=== PATIENT | male | born 1955 | race Caucasian/White ===

== ENCOUNTER 2016-09-24 05:13 | Inpatient (IN) | payer BC, OTHER ==
[2016-09-24 05:48] VITALS: BMI 53.2
--- NOTE | 2016-09-24 06:02 | PDOC ---
[id number] [id number] CHEST DISCOMFORT Time Seen by Provider: 09/24/16 05:38 - History of Present Illness Initial Comments: 09/24/16 06:01 CHIEF COMPLAINT: chest discomfort x 3 days HISTORY OF PRESENT ILLNESS: 61 yo M with hx of HTN, IDDM, COPD, CHF, afib, obesity, s/p 4 stents, pacemaker placement presents to ED with increasing chest discomfort ("not chest pain") x 3 days. Patient states he has a productive cough and "you can hear rattling in my chest." Patient denies any fever, nausea , vomiting, diarrhea. He does report "maybe a little increased swelling to left foot" recently but reports that his left foot is "always more swollen than the right foot, and I see my practice lead all the time to check the circulation". No recent travel or sick contacts. PAST MEDICAL HISTORY: as per HPI FAMILY HISTORY: Denies SOCIAL HISTORY: Former smoker, quit 10 years ago. Denies alcohol, illicit drug use. SURGICAL HISTORY: Denies ALLERGIES: levaquin REVIEW OF SYSTEMS General/Constitutional: Denies fever or chills. Denies weakness, weight change. HEENT: Denies change in vision. Denies ear pain or discharge. Denies sore throat. Cardiovascular: Chest discomfort. Denies shortness of breath. Respiratory: Productive cough x 3 days with "rattling" today. Denies hemoptysis. Gastrointestinal: Denies nausea, vomiting, diarrhea or constipation. Denies rectal bleeding. Genitourinary: Denies dysuria, frequency, or change in urination. Musculoskeletal: Denies joint or muscle swelling or pain. Denies neck or back pain. Skin and breasts: Denies rash or easy bruising. PHYSICAL EXAM General Appearance: Well-appearing, appropriately dressed. No apparent distress. HEENT: EOMI, PERRLA, normal ENT inspection, normal voice, TMs normal, pharynx normal. No conjunctival pallor. No photophobia, scleral icterus. Neck: Supple. Trachea midline. No tenderness, rigidity, carotid bruit, stridor , lymphadenopathy, or thyromegaly. Respiratory/Chest: Crackles to lower lobes bilaterally. Minimal wheezing to R lower lobe. Cardiovascular: RRR. S1, S2. Vascular Pulses: Dorsalis-Pedis (R): 1+ , Dorsalis-Pedis (L): not palpable, not detected via bedside doppler Gastrointestinal/Abdominal: Normal bowel sounds. Abdomen soft, non-distended. No tenderness or rebound tenderness. No organomegaly, pulsatile mass, guarding , hernia, hepatomegaly, splenomegaly. Musculoskeletal/Extremities: Chronic venous stasis to lower extremities bilaterally, 3+ pitting edema to left ankle/foot. Normal inspection. FROM of all extremities, normal capillary refill. Pelvis Stable. No CVA tenderness. No tenderness to extremities, pedal edema, swelling, erythema or deformity. Integumentary: Appropriate color, dry, warm. No cyanosis, erythema, jaundice or rash Neurologic: salt grinder II-XII intact. Fully oriented, alert. Appropriate mood/affect. Motor strength 5/5. No appreciable EOM palsy, facial droop or sensory deficit. 09/24/16 06:02 09/24/16 06:47 Past History - Past Medical History Allergies/Adverse Reactions: Allergies Allergy/AdvReac Type Severity Reaction Status Date / Time levofloxacin [From Levaquin] Allergy Intermediate EYE Verified 09/24/16 05:44 IRRITATION Home Medications: Ambulatory Orders Febuxostat [Uloric -] 80 mg PO DAILY #0 tab 03/10/12 Lidocaine 5% Patch [Lidoderm -] 1 patch TP DAILY #0 patch 03/10/12 Acetaminophen [Tylenol .Extra-Strength -] 1,000 mg PO Q6H PRN 11/26/13 Ergocalciferol (Vitamin D2) [Vitamin D] 50,000 unit PO WEEKLY 11/26/13 Esomeprazole Mag Trihydrate [Nexium] 40 mg PO DAILY 11/26/13 Insulin Regular, Human [Humulin R -] 2 units SQ ASDIR PRN 11/26/13 Gabapentin 100 mg PO HS 12/30/13 Insulin (Novolog 70/30) [Novolog Mix 70/30 Flexpen -] 15 units SQ BID 02/17/14 Atorvastatin Ca [Lipitor] 20 mg PO HS 06/17/15 Torsemide [Demadex -] 100 mg PO DAILY tablet 06/23/15 Iron Dextran Complex [Infed] 100 mg IJ ASDIR 10/04/15 Dulaglutide [Trulicity] 0.75 mg SQ WEEKLY 10/05/15 Carvedilol [Coreg -] 18.75 mg PO DAILY 09/24/16 Albuterol 2.5/Ipratropium 0.5 [Duoneb -] 1 amp NEB QIDR amp 09/27/16 Amox-Tr/K Cl [Augmentin 875-125mg Tablet -] 1 tab PO BID@0800,1730 #14 tablet Prednisone 10 mg PO DAILY #40 tablet 09/27/16 Warfarin Na [Coumadin -] 2.5 mg PO DAILY@1800 #30 tablet 09/27/16 Anemia: Yes Asthma: No Cancer: No Cardiac Disorders: Yes (Afib/stents, PPM; STENT 02/21/2014) CVA: No COPD: Yes (sleep apnea) CHF: Yes Dementia: No Diabetes: Yes GI Disorders: No Disorders: No HTN: Yes Hypercholesterolemia: Yes Liver Disease: No Seizures: No Thyroid Disease: No - Surgical History Abdominal Surgery: No Appendectomy: No Cardiac Surgery: Yes (STENT INSERTION, pace maker) Cholecystectomy: No Lung Surgery: No Neurologic Surgery: No Orthopedic Surgery: No - Immunization History Td Vaccination: Yes TDAP Vaccination: Yes Immunization Up to Date: Yes - Psycho/Social/Smoking Cessation Hx Anxiety: No Suicidal Ideation: No Smoking Status: No Smoking History: Unknown if ever smoked Have you smoked in the past 12 months: No Number of Cigarettes Smoked Daily: 0 If you are a former smoker, when did you quit?: 2005 Information on smoking cessation initiated: No 'Breaking Loose' booklet given: 03/09/12 Hx Alcohol Use: No Drug/Substance Use Hx: No Substance Use Type: None Hx Substance Use Treatment: No Cardiac Specific PMH - Complaint Specific PMHX Pacemaker: Yes *Physical Exam - Vital Signs Last Vital Signs Temp Pulse Resp BP Pulse Ox 98.0 F 70 20 138/80 97 09/27/16 17:00 09/27/16 17:00 09/27/16 09:00 09/27/16 17:00 09/27/16 11:34 ED Treatment Course - LABORATORY CBC & Chemistry Diagram: 09/27/16 06:50 09/27/16 06:50 - ADDITIONAL ORDERS Additional order review: 09/24/16 18:58 Respiratory Virus Panel - Final Nasopharyngeal Swab 09/24/16 17:26 Blood Culture - Final Blood - Peripheral Venous NO GROWTH AFTER 5 DAYS INCUBATION 09/24/16 17:26 Blood Culture - Final Blood - Peripheral Venous NO GROWTH AFTER 5 DAYS INCUBATION 09/24/16 18:58 Influenza Types A,B Antigen (KIRTI) - Final Nasopharyngeal Swab - Final 09/25/16 09/24/16 09/24/16 06:07 21:49 15:56 RBC MCV MCHC RDW MPV Neutrophils % Lymphocytes % Monocytes % Eosinophils % Basophils % POC Glucometer 271 244 195 09/24/16 06:00 RBC 3.32 L MCV 87.0 MCHC 33.0 RDW 14.9 MPV 8.8 Neutrophils % 62.0 Lymphocytes % 17.2 D Monocytes % 14.7 H Eosinophils % 5.5 H Basophils % 0.6 POC Glucometer - RADIOLOGY Radiology Studies Ordered: Category Date Time Status CHEST PA & LAT [RAD] Stat Radiology 09/24/16 05:59 Completed - Medications Given in the ED: ED Medications Discontinued Medications Generic Name Dose Route Start Last Admin Trade Name Freq PRN Reason Stop Dose Admin Acetaminophen 650 mg 09/24/16 15:34 09/24/16 16:42 Tylenol - PO 650 mg Q6H PRN Administration FEVER OR PAIN Albuterol Sulfate 1 amp 09/24/16 11:08 09/24/16 11:10 Ventolin 0.083% Nebulizer Soln - NEB 09/24/16 11:09 1 amp ONCE ONE Administration Albuterol/Ipratropium 1 amp 09/24/16 18:00 09/27/16 16:45 Duoneb - NEB 1 amp QIDR MELISSA Administration Amoxicillin/Clavulanate Potassium 1 tab 09/26/16 17:30 09/27/16 17:33 Augmentin - 875mg Tablet PO 1 tab BID@0800,1730 MELISSA Administration Aspirin 324 mg 09/24/16 11:01 09/24/16 11:55 Asa - PO 09/24/16 11:02 Not Given ONCE ONE Atorvastatin Calcium 20 mg 09/24/16 22:00 09/26/16 21:44 Lipitor - PO 20 mg HS MELISSA Administration Carvedilol 12.5 mg/ Carvedilol 18.75 mg 09/24/16 22:00 09/27/16 10:04 6.25 mg PO 18.75 mg BID MELISSA Administration Dronedarone 400 mg 09/24/16 22:00 09/25/16 10:26 Multaq - PO Not Given BID MELISSA Febuxostat 80 mg 09/25/16 10:00 09/27/16 10:05 Uloric - PO 80 mg DAILY MELISSA Administration Furosemide 80 mg 09/24/16 07:58 09/24/16 09:20 Lasix Injection - IVPUSH 09/24/16 07:59 80 mg ONCE ONE Administration Gabapentin 100 mg 09/24/16 22:00 09/27/16 13:30 Neurontin - PO 100 mg TID MELISSA Administration Guaifenesin 10 ml 09/24/16 07:59 09/24/16 09:20 Robitussin - PO 09/24/16 08:00 10 ml ONCE ONE Administration Guaifenesin 10 ml 09/24/16 13:56 09/27/16 10:15 Diabetic Tussin Dm - PO 10 ml Q4H PRN Administration COUGH Insulin Aspart 1 vial 09/24/16 16:30 09/26/16 12:15 Novolog Vial Sliding Scale - SQ 4 units ACHS MELISSA Administration Protocol Insulin Aspart 20 units 09/24/16 16:30 09/26/16 06:43 Novolog Mix 70/30 Vial SQ 20 units BIDAC MELISSA Administration Insulin Aspart 35 units 09/26/16 14:11 09/27/16 17:35 Novolog Mix 70/30 Vial SQ 35 units BIDAC MELISSA Administration Insulin Aspart 1 vial 09/26/16 14:12 09/27/16 17:33 Novolog Vial Sliding Scale - SQ 6 units ACHS MELISSA Administration Protocol Lidocaine 1 patch 09/24/16 15:45 09/27/16 10:04 Lidoderm Patch - TP Not Given DAILY MELISSA Methylprednisolone Sodium Succinate 40 mg 09/24/16 15:00 09/25/16 14:19 Solu-Medrol - IVPB Not Given Q6H-IV MELISSA Methylprednisolone Sodium Succinate 40 mg 09/25/16 10:00 09/26/16 21:45 Solu-Medrol - IVPB 09/26/16 22:00 40 mg BID MELISSA Administration Methylprednisolone Sodium Succinate 40 mg 09/27/16 10:00 09/27/16 10:03 Solu-Medrol - IVPB 40 mg DAILY MELISSA Administration Pantoprazole Sodium 40 mg 09/24/16 15:45 09/27/16 10:04 Protonix - PO 40 mg DAILY MELISSA Administration Torsemide 100 mg 09/25/16 10:00 09/27/16 10:05 Demadex - PO 100 mg DAILY MELISSA Administration Warfarin Sodium 3 mg 09/24/16 18:00 09/25/16 17:18 Coumadin - PO Not Given DAILY@1800 [facility] Warfarin Sodium 3 mg 09/27/16 18:00 09/27/16 17:33 Coumadin - PO 3 mg DAILY@1800 [facility] Administration Medical Decision Making - Medical Decision Making 09/24/16 06:48 61 yo M with hx of HTN, IDDM, COPD, CHF, afib, obesity, s/p 4 stents, pacemaker placement presents to ED with increasing chest discomfort ("not chest pain") x 3 days. -CBC, CMP, Mg, PT/INR, cardiac profile -EKG, CXR Case discussed in detail with oncoming emergency provider including history, physical exam and ancillary studies. In brief, this patient is being seen in the ED for a chief complaint of: chest discomfort, cough I have completed the initial assessment interview note and have ordered the following labs: CBC, CMP, Mg, PT/INR, cardiac profile I have reviewed the following results: CBC Pending results: CMP, Mg, PT/INR, cardiac profile Please call the PCP: Lexus Plan for disposition as follows: pending Oncoming NPA Katelin has assumed care for the patient and will complete the evaluation and treatment. *DC/Admit/Observation/Transfer Diagnosis at time of Disposition: Cough, Systolic CHF, acute on chronic Chest pain Qualifiers: Chest pain type: other chest pain Qualified Code(s): R07.89 - Other chest pain - Discharge Dispostion Disposition: HOME Condition at time of disposition: Improved - Prescriptions
[2016-09-24 06:20] LABS: BASOPHIL 0.6 % (0-2.0); EOSINOPHIL 5.5 % (0-4.5); MCH 28.7 pg (25.7-33.7); MEAN PLT VOLUME 8.8 fl (7.5-11.1); PLATELET COUNT 131 K/MM3 (134-434); RDW 14.9 % (11.9-15.9); WHITE BLOOD COUNT 5.9 K/mm3 (4.0-10.0)
[2016-09-24 06:47] LABS: ALBUMIN 3.1 g/dl (3.4-5.0); BILIRUBIN,TOTAL 0.4 mg/dL (0.2-1.0); COCKROFT - GAULT 49.76; CREATININE 3.4 mg/dL (0.7-1.3); MAGNESIUM 2.1 mg/dL (1.8-2.4); TOT PROT 7.1 g/dl (6.4-8.2)
[2016-09-24 06:50] LABS: TROPONIN I 0.02 ng/ml (0.00-0.05)
--- NOTE | 2016-09-24 07:32 | PDOC ---
*Physical Exam - Vital Signs Last Vital Signs Temp Pulse Resp BP Pulse Ox 98.7 F 70 20 129/62 100 09/24/16 05:44 09/24/16 05:44 09/24/16 05:44 09/24/16 05:44 09/24/16 05:44 ED Treatment Course - LABORATORY CBC & Chemistry Diagram: 09/24/16 06:00 09/24/16 06:00 - ADDITIONAL ORDERS Additional order review: Laboratory Results 09/24/16 06:00 Sodium 139 Potassium 4.1 Chloride 103 Carbon Dioxide 26 Anion Gap 10 BUN 76 H D Creatinine 3.4 H D Creat Clearance w eGFR 18.51 Random Glucose 149 H Calcium 8.0 L Magnesium 2.1 Total Bilirubin 0.4 AST 24 D ALT 25 D Alkaline Phosphatase 92 Creatine Kinase 425 H D Creatine Kinase Index 0.6 CK-MB (CK-2) 2.586 Troponin I 0.02 Total Protein 7.1 Albumin 3.1 L 09/24/16 06:00 RBC 3.32 L MCV 87.0 MCHC 33.0 RDW 14.9 MPV 8.8 Neutrophils % 62.0 Lymphocytes % 17.2 D Monocytes % 14.7 H Eosinophils % 5.5 H Basophils % 0.6 Medical Decision Making - Medical Decision Making 09/24/16 07:31 Signout received from RHODA Veloz. Briefly, this is a 61 year old male with a history of CAD s/p stents x 4, Afib s/p PPM on Coumadin, COPD, CHF, IDDM, and obesity who presents with 3 days of productive cough, chest "discomfort", and asymmetric LE edema which he states is chronic. Workup so far is notable for: EKG: Paced rhythm, (-) Sgarbossa criteria CXR: Pulmonary vascular congestion, increased central markings Cr 3.4 (2.6 on prior visit 08/2016) Troponin 0.02 INR therapeutic at 2.87 Patient has asymmetric LE edema, but states this has been chronic for many years Plan: -Lasix 80mg IVP -Place in observation for diuresis and MARY -Dr. Tyler consulted- discusse chapincito Cespedes -Accepted for observation by Dr. Boudreaux 09/24/16 11:09 Patient again complaining of chest pain and persistent cough. Will give trial of albuterol neb x 1. Will repeat EKG and cardiac enzymes. Patient was told never to take ASA because of ?GIB. *DC/Admit/Observation/Transfer Diagnosis at time of Disposition: Cough, Systolic CHF, acute on chronic Chest pain Qualifiers: Chest pain type: other chest pain Qualified Code(s): R07.89 - Other chest pain - Discharge Dispostion Admit: Yes - Referrals
[2016-09-24] MEDS ORDERED: FUROSEMIDE 40 MG/4 ML INJECTABLE VIAL IVPUSH ONE (07:58)
[2016-09-24] MEDS ORDERED: guaiFENesin 200 MG/10 ML 10 ML UNIT-DOSE CUPS PO ONE (07:59)
[2016-09-24 08:18] LABS: INR 2.87 (0.82-1.09); PROTHROMBIN TIME (PATIENT) 32.3 SEC (9.98-11.88)
[2016-09-24] MEDS ORDERED: FUROSEMIDE 40 MG/4 ML INJECTABLE VIAL ONE (09:09)
[2016-09-24] MEDS ORDERED: guaiFENesin/D-METHORPHAN HB 10 ML UNIT-DOSE CUPS ONE (09:09)
--- NOTE | 2016-09-24 09:54 | EKG ---
Test Reason : Blood Pressure : / mmHG Vent. Rate : 078 BPM Atrial Rate : 105 BPM P-R Int : 146 ms QRS Dur : 186 ms QT Int : 496 ms P-R-T Axes : 128 -69 092 degrees QTc Int : 565 ms POOR DATA QUALITY, INTERPRETATION MAY BE ADVERSELY AFFECTED AV dual-paced rhythm ABNORMAL ECG Confirmed by ALFRED CHAVARRIA MD ([id number]) on 09/24/2016 9:53:35 AM Referred By: Confirmed By:ALFRED CHAVARRIA MD
[2016-09-24] MEDS ORDERED: ASPIRIN 81 MG CHEWABLE TABLETS PO ONE (11:01)
[2016-09-24] MEDS ORDERED: ALBUTEROL SO4 0.083% IH SOL 2.5 MG/3 ML VIAL.NEB. NEB ONE (11:08)
[2016-09-24 12:54] LABS: TROPONIN I 0.02 ng/ml (0.00-0.05)
--- NOTE | 2016-09-24 13:51 | PN ---
Progress Note (short form) - Note Progress Note: PULMONARY CONSULTATION DICTATED 09/24/16 IMP CHEST CONGESTION,DYSPNEA COPD EXACERBATION CHF ACUTE ON CHRONIC RENAL FAILURE AFIB S/P PPM ASHD S/P STENTS HTN OSAS ON CPAP 14cm H2O MORBID OBESITY IDDM PLAN INHALED BRONCHODLATORS DIURETICS PER CARDIOLOGY NASAL O2 STEROIDS X 24 HR GLYCEMIC CONTROL ANTITUSSIVES STRICT I+OS DAILY WTS MONITOR LYTES,RENAL FUNCTION DR MCKEON Problem List - Problems (1) Cough Code(s): R05 - COUGH (2) Acute on chronic renal failure Code(s): N17.9 - ACUTE KIDNEY FAILURE, UNSPECIFIED N18.9 - CHRONIC KIDNEY DISEASE, UNSPECIFIED (3) Atrial fibrillation Code(s): I48.91 - UNSPECIFIED ATRIAL FIBRILLATION (4) CHF exacerbation Code(s): I50.9 - HEART FAILURE, UNSPECIFIED (5) Elevated brain natriuretic peptide (BNP) level Code(s): R79.89 - OTHER SPECIFIED ABNORMAL FINDINGS OF BLOOD CHEMISTRY (6) Insulin dependent diabetes mellitus Code(s): E11.9 - TYPE 2 DIABETES MELLITUS WITHOUT COMPLICATIONS Z79.4 - DETENTION (CURRENT) USE OF INSULIN (7) Lower extremity edema Code(s): R60.0 - LOCALIZED EDEMA (8) Obstructive lung disease Code(s): J44.9 - CHRONIC OBSTRUCTIVE PULMONARY DISEASE, UNSPECIFIED (9) S/P coronary artery stent placement Code(s): Z95.5 - PRESENCE OF CORONARY ANGIOPLASTY IMPLANT AND GRAFT (10) Sleep apnea Code(s): G47.30 - SLEEP APNEA, UNSPECIFIED
--- NOTE | 2016-09-24 15:04 | CON.CARD ---
Cardiology Consult (text) - Consultation Consultation Note: CC: CP 61 year old with h/o ischemic cardiomyopathy, CAD s/p multiple PCI's, most recent 02/2014, afib, SSS s/p pacemaker, diabetes, chronic kidney disease, asthma , osmar on nivppv at home, morbid obesity who p/w cough. States that he recently had a cold and over the past couple of days developed a productive cough. He was coughing so much he was having trouble breathing. Otherwise no sob, cp dizziness, palps, progression of stable LE edema. No orthopnea, abdominal distension. No change in recent weights. + congestion. adherent to torsemide denies fever, diaphoresis, chills, nausea, vomiting, diarrhea, urinary symptoms , rashes, headache claudication, bleeding or transient neurologic symptoms. cough better since receiving medications. PMhx: Per hpi Family hx: multiple family members with CAD, cardiomyopathy and arrhythmia Social hx: former smoker, rare alcohol, no illicits ROS: per hpi. Ambulatory Orders Dronedarone HCl [Multaq -] 400 mg PO BID #0 tab 03/10/12 Febuxostat [Uloric -] 80 mg PO DAILY #0 tab 03/10/12 Lidocaine 5% Patch [Lidoderm -] 1 patch TP DAILY #0 patch 03/10/12 Acetaminophen [Tylenol .Extra-Strength -] 1,000 mg PO Q6H PRN 11/26/13 Ergocalciferol (Vitamin D2) [Vitamin D] 50,000 unit PO WEEKLY 11/26/13 Esomeprazole Mag Trihydrate [Nexium] 40 mg PO DAILY 11/26/13 Insulin Regular, Human [Humulin R -] 2 units SQ ASDIR PRN 11/26/13 Gabapentin 100 mg PO HS 12/30/13 Warfarin Sodium [Coumadin] 3 mg PO ASDIR 12/30/13 Insulin (Novolog 70/30) [Novolog Mix 70/30 Flexpen -] 15 units SQ BID 02/17/14 Atorvastatin Ca [Lipitor] 20 mg PO HS 06/17/15 Torsemide [Demadex -] 100 mg PO DAILY tablet 06/23/15 Iron Dextran Complex [Infed] 100 mg IJ ASDIR 10/04/15 Dulaglutide [Trulicity] 0.75 mg SQ WEEKLY 10/05/15 Carvedilol [Coreg -] 18.75 mg PO DAILY 09/24/16 Current Medications Albuterol/Ipratropium (Duoneb -) 1 amp NEB QIDR MELISSA Guaifenesin (Diabetic Tussin Dm -) 10 ml PO Q4H PRN PRN Reason: COUGH Methylprednisolone Sodium Succinate (Solu-Medrol -) 40 mg IVPB Q6H-IV [facility] Vital Signs - 24 hr 09/24/16 09/24/16 09/24/16 05:44 07:18 09:20 Temperature 98.7 F Pulse Rate 70 Pulse Rate [ 77 80 Right Radial] Respiratory 20 18 18 Rate Blood Pressure 129/62 Blood Pressure 132/48 132/73 [Left Arm] O2 Sat by Pulse 100 97 98 Oximetry (%) 09/24/16 09/24/16 11:22 11:40 Temperature 98.0 F 97.9 F Pulse Rate 70 Pulse Rate [ 71 Right Radial] Respiratory 18 18 Rate Blood Pressure 129/71 Blood Pressure 119/65 [Left Arm] O2 Sat by Pulse 98 98 Oximetry (%) Intake & Output 09/22/16 09/23/16 09/24/16 09/25/16 07:59 07:59 07:59 07:59 Weight 340 lb 339 lb 15.985 oz NAD, calm JVD flat, neck supple diminished air movement, nl effort RRR nl S1, s2 no m/r/g + bs soft obese nt nd ext without cyanosis, clubbing trace edema with venous stasis changes + dp/pt aaox3 CBC, BMP 09/24/16 06:00 09/24/16 06:00 Laboratory Tests 12/01/15 08/21/16 08/21/16 09:03 09:25 09:25 Plt Count 155 Monocytes % Eosinophils % INR Creatinine 2.6 H D Magnesium Total Bilirubin AST ALT Creatine Kinase Creatine Kinase Index CK-MB (CK-2) Troponin I Free Tunica/Lambda Ratio 2.12 H 09/24/16 09/24/16 09/24/16 06:00 06:00 06:00 Plt Count 131 L Monocytes % 14.7 H Eosinophils % 5.5 H INR 2.87 H Creatinine 3.4 H D Magnesium 2.1 Total Bilirubin 0.4 AST 24 D ALT 25 D Creatine Kinase 425 H D Creatine Kinase Index 0.6 CK-MB (CK-2) 2.586 Troponin I 0.02 Free Tunica/Lambda Ratio 09/24/16 11:52 Plt Count Monocytes % Eosinophils % INR Creatinine Magnesium Total Bilirubin AST ALT Creatine Kinase 552 H D Creatine Kinase Index 0.7 CK-MB (CK-2) 3.7 H Troponin I 0.02 EKG: a-v paced tele: av paced CXR: no infiltrate or evidence of failure Echo 10/19 ([place]): nl LV size with mild-mod global HK (EF 45%); mild MR RHC 10/19: wedge 25, PA 50/20; CI 2.7-->nitroprusside: wedge 10, PA 25/15; CI 2.4 cath 02/2014: mLAD ESTER for ISR, patent stents in mRCA, pLAD, PLCx, OM1, residual ISR 50-60% OM2 stent cough - appears euvolemic, cxr clear. likely 2/2 cold. mgm't per pmd/pulm Ischemic cardiomyopathy - euvolemic. would resume home 100 mg of torsemide daily. - con't coreg, no NAKUL due to fluctuating creatinine - standing weights, i/o, daily bmp Afib, - previously sx triggering HF exacerbation - On AC with coumain. inr dosing per pmd - on multaq for rhythm control SSS s/p biotronik PPM - routine office checks CAD - s/p multiple PCI's, most recent 02/2014 --mLAD ESTER PCI for ISR--stable, minimal residual, - not on anti-platelet due to h/o gib - no anginal sx's, trop negative x 2, EKG v-pacing - not on NAKUL due to fluctuating creatinine. HTN - well controlled on current regimen HL - on atorvastatin CKD (baseline Cr ~ 3's) - Monitor closely with diuresis. anemia - will monitor hgb on AC OSMAR, DM, per PMD
--- NOTE | 2016-09-24 15:30 | CONS ---
DATE OF CONSULTATION: 09/24/2016 PULMONARY CONSULTATION REFERRING PHYSICIAN: HISTORY OF PRESENT ILLNESS: The patient is a 61-year-old white male known to me from previous hospitalization, lost to followup. Past history of hypertension, morbid obesity, COPD, CHF, atrial fibrillation status post stents, ASHD status post 4 stents. The patient is status post permanent pacemaker. Hypertension, insulin dependent, diabetes. Admitted to [facility] with complaints of increasing chest congestion and cough of 3 days' duration. The patient states the cough is productive of clear sputum. He also complains of chest congestion and wheezing. Denies any chest pain, nausea, vomiting, diaphoresis. Denies any hemoptysis. Denied any recent travel. There were complaints of chills. Patient presented to the emergency room above. In the ER, he was started on Lasix, inhaled bronchodilators, and transferred to floor for further management. Patient has a history of smoking approximately 10 to 12 years ago. There is no history of occupational exposure to chemicals or fumes. There is no history of recent travel. PAST MEDICAL HISTORY: Again includes CHF, COPD, insulin dependent diabetes mellitus, hypertension, morbid obesity, ASHD status post stents, atrial fibrillation status post pacemaker, obstructive sleep apnea. REVIEW OF SYSTEMS: Positive for shortness of breath. Positive for cough. Positive for chest congestion. No fever. Positive chills. No chest pain. No palpitations. No abdominal pain. Positive for lower extremity edema. CURRENT MEDICATIONS: Include nothing ordered. They received in the emergency room: Lasix 80 mg IV once, guaifenesin, albuterol. PHYSICAL EXAMINATION: General: The patient is an obese male, awake, alert, congested. Vital signs: He is currently afebrile. Blood pressure is 119/55, respiratory rate is 18, and O2 saturation is 98% on 2 L. HEENT: Head is normocephalic, atraumatic. Neck: Supple. Heart: Irregularly irregular. Normal S1, S2. Chest: Diffuse rales and rhonchi, bibasilar crackles. Abdomen: Soft. Bowel sounds positive. Extremities: Bilateral extremity edema, left greater than right. LABORATORY: BUN 76, creatinine 3.4, BNP is 3498, CK is 425, INR is 2.87. WBC is 5.9, hemoglobin 9.5, hematocrit 29.5, platelet count 131,000. Chest x-ray reveals prominent central markings but no acute infiltrates and/or effusions. Previous congestion infiltrate changes have resolved since October of 2015. IMPRESSION: 1. Dyspnea, chest congestion chronic obstructive pulmonary disease exacerbation. 2. Acute bronchitis. 3. Mild congestive heart failure. 4. Morbid obesity. 5. [id number]-[id number] renal failure. 6. Insulin dependent diabetes mellitus. 7. Hypertension. 8. Obstructive sleep apnea. PLAN: Inhaled bronchodilators. Supplemental O2. Short course of IV steroids, Lasix. Cardiology evaluation. Monitor electrolytes. Obtain followup chest x- ray. BiPAP at night if patient complies. Supplemental O2. Antitussives. ALEC MCKEON M.D. [id number] MTDD
[2016-09-24] MEDS ORDERED: ACETAMINOPHEN 325 MG TABLET (FP) PO PRN (15:34)
[2016-09-24] MEDS: methylPREDNISolone NA SUCC 40 MG/1 ML VIAL IVPB SCH ×2 (15:57→21:38)
[2016-09-24] MEDS: guaiFENesin/D-M SUGAR-FREE/ACLHOL-FREE 118 ML BOTTLE PO PRN (15:59)
[2016-09-24] MEDS: INSULIN SLIDING SCALE (NOVOLOG) 1 VIAL SQ SCH ×2 (16:00→22:00)
[2016-09-24] MEDS: PANTOPRAZOLE 40 MG TABLET (FP) PO SCH (17:38)
[2016-09-24] MEDS: WARFARIN NA 3 MG TABLET PO SCH (17:38)
[2016-09-24] MEDS: INSULIN (NOVOLOG MIX 70/30) 100 UNITS/ML MDV SQ SCH (17:38)
[2016-09-24] MEDS: LIDOCAINE 5% TOPICAL PATCH TP SCH (17:38)
[2016-09-24] MEDS: ALBUTEROL SO4 2.5/IPRATROPIUM 0.5 INH SOL 3 ML VIAL.NEB. NEB SCH (18:15)
[2016-09-24] MEDS: GABAPENTIN 100 MG CAPSULE (FP) PO SCH (21:38)
[2016-09-24] MEDS: ATORVASTATIN CA 20 MG TABLET (FP) PO SCH (21:38)
[2016-09-24] MEDS ORDERED: CARVEDILOL 6.25 MG TABLET (FP) ONE (21:56)
[2016-09-24] MEDS ORDERED: CARVEDILOL 12.5 MG TABLET (FP) ONE (21:56)
[2016-09-24] MEDS: CARVEDILOL 12.5 MG, CARVEDILOL 6.25 MG PO SCH (22:00)
[2016-09-24] MEDS ORDERED: CARVEDILOL 12.5 MG TABLET (FP) PO SCH (22:00)
[2016-09-25] MEDS: ALBUTEROL SO4 2.5/IPRATROPIUM 0.5 INH SOL 3 ML VIAL.NEB. NEB SCH ×6 (00:16→23:01)
[2016-09-25] MEDS: DRONEDARONE HCL 400 MG TAB (FP) PO SCH ×2 (02:56→10:26)
[2016-09-25] MEDS: methylPREDNISolone NA SUCC 40 MG/1 ML VIAL IVPB SCH ×4 (02:57→21:33)
[2016-09-25] MEDS: GABAPENTIN 100 MG CAPSULE (FP) PO SCH ×3 (06:14→21:32)
[2016-09-25] MEDS: INSULIN SLIDING SCALE (NOVOLOG) 1 VIAL SQ SCH ×4 (06:15→21:32)
[2016-09-25] MEDS: INSULIN (NOVOLOG MIX 70/30) 100 UNITS/ML MDV SQ SCH ×2 (06:15→17:25)
--- NOTE | 2016-09-25 08:33 | PN ---
Progress Note, Physician Chief Complaint: sob/wheezing History of Present Illness: no more sob no wheezing no cp no palpit no leg swelling (incl at home) remote ex-cigs and signif 2nd hand exposures - Current Medication List Current Medications: Active Medications Acetaminophen (Tylenol -) 650 mg PO Q6H PRN PRN Reason: FEVER OR PAIN Last Admin: 09/24/16 16:42 Dose: 650 mg Albuterol/Ipratropium (Duoneb -) 1 amp NEB QIDR [facility] Last Admin: 09/25/16 07:30 Dose: 1 amp Atorvastatin Calcium (Lipitor -) 20 mg PO HS [facility] Last Admin: 09/24/16 21:38 Dose: 20 mg Carvedilol 12.5 mg/ Carvedilol (6.25 mg) 18.75 mg PO BID [facility] Last Admin: 09/24/16 22:00 Dose: 18.75 mg Dronedarone (Multaq -) 400 mg PO BID [facility] Last Admin: 09/25/16 02:56 Dose: Not Given Febuxostat (Uloric -) 80 mg PO DAILY [facility] Gabapentin (Neurontin -) 100 mg PO TID [facility] Last Admin: 09/25/16 06:14 Dose: 100 mg Guaifenesin (Diabetic Tussin Dm -) 10 ml PO Q4H PRN PRN Reason: COUGH Last Admin: 09/24/16 15:59 Dose: 10 ml Insulin Aspart (Novolog Vial Sliding Scale -) 1 vial SQ ACHS [facility] PRN Reason: Protocol Last Admin: 09/25/16 06:15 Dose: 4 units Insulin Aspart (Novolog Mix 70/30 Vial) 20 units SQ BIDAC [facility] Last Admin: 09/25/16 06:15 Dose: 20 units Lidocaine (Lidoderm Patch -) 1 patch TP DAILY [facility] Last Admin: 09/24/16 17:38 Dose: Not Given Methylprednisolone Sodium Succinate (Solu-Medrol -) 40 mg IVPB Q6H-IV [facility] Last Admin: 09/25/16 02:57 Dose: 40 mg Pantoprazole Sodium (Protonix -) 40 mg PO DAILY [facility] Last Admin: 09/24/16 17:38 Dose: 40 mg Torsemide (Demadex -) 100 mg PO DAILY [facility] Warfarin Sodium (Coumadin -) 3 mg PO DAILY@1800 [facility] Last Admin: 09/24/16 17:38 Dose: 3 mg - Objective Vital Signs: Vital Signs Temperature 98.3 F 09/25/16 02:00 Pulse Rate 76 09/25/16 02:00 Respiratory Rate 20 09/25/16 02:00 Blood Pressure 136/69 09/25/16 02:00 O2 Sat by Pulse Oximetry (%) 98 09/25/16 07:14 Constitutional: Yes: No Distress, Calm Eyes: No: Sclera Icterus HENT: No: Nasal Congestion Cardiovascular: Yes: Regular Rate and Rhythm, S1, S2, Other (PMI non diplaced). No: Gallop, Murmur Respiratory: Yes: CTA Bilaterally. No: Accessory Muscle Use, Rales, Wheezes Gastrointestinal: Yes: Normal Bowel Sounds, Soft. No: Tenderness Musculoskeletal: Yes: Other (No kyphosis) Extremities: No: Cold, Cyanosis Edema: No Integumentary: No: Jaundice Neurological: Yes: Alert, Oriented (x3) Psychiatric: No: Agitated Labs: INR, PTT INR 2.87 (0.82-1.09) H 09/24/16 06:00 - ....Imaging EKG: Other (tele: A-s/V-P, alt A/V-p) Assessment/Plan EKG: a-v paced tele: av paced CXR: no infiltrate or evidence of failure Echo 10/19 ([facility]): nl LV size with mild-mod global HK (EF 45%); mild MR RHC 10/19: wedge 25, PA 50/20; CI 2.7-->nitroprusside: wedge 10, PA 25/15; CI 2.4 cath 02/2014: mLAD ESTER for ISR, patent stents in mRCA, pLAD, PLCx, OM1, residual ISR 50-60% OM2 stent acute sob, cough, acute bronchospasm - sudden onset wheezing at home and feeling of constricted air flow in chest, in setting of viral URI - signif prior tobacco exposures, no prior h/o athma/copd to his knowledge - appears euvolemic, cxr clear and no venous redistribution/congestion noted - reliably with wt trend up and LE swelling with chf in past--none at present - pt has history of known asthma/copd per my d/w dr day - plan for short course steroids trial (ongoing) - pulm following--? maintenance BDs per their recs Ischemic cardiomyopathy, chronic syst chf - clinically euvolemic (as above) - dry wt runs 332-338, wt 335 here - BNP 3K (range 1K-5K) - s/p one dose lasix 80 ivp in ER - continuing home torsemide 100 mg qd - con't coreg 18.75 bid (home dose) - no NAKUL due to fluctuating creatinine history - observe wt trend and periph edema closely on steroids (wt and LE swelling are his usual chf signs) parox Afib: - previous DCCV yrs ago, maintained on multaq for rhythm control - multaq stopped 2015 by EP at [facility] due to worsening creatinine (improved to 2.5 range from 3 at that time) - no AF noted since - cont BB as doing - On AC with coumadin. inr dosing per pmd--H/H has been stable, with no signs recurrent occult GIB (has hx of this 2016) SSS s/p biotronik PPM - routine office checks CAD - s/p multiple PCI's, most recent 02/2014 --mLAD ESTER PCI for ISR--stable, minimal residual, - not on anti-platelet due to h/o gib and pt on coumadin - no anginal sx's, trop negative x 2, EKG v-pacing - not on NAKUL due to fluctuating creatinines HTN - well controlled on current regimen HL - on atorvastatin, cont same CKD (baseline Cr ~ 3's) - routine lab trend anemia - baseling hgb 9s-10s - counts stable here OSMAR - compliant with cpap DM - per pmd NO INDICATION FOR TELEMETRY--D/C'D
--- NOTE | 2016-09-25 09:16 | PN ---
Progress Note, Physician History of Present Illness: PULMONARY ALERT,FEELING BETTER,LESS CONGESTED,LESS COUGH - Current Medication List Current Medications: Active Medications Acetaminophen (Tylenol -) 650 mg PO Q6H PRN PRN Reason: FEVER OR PAIN Last Admin: 09/24/16 16:42 Dose: 650 mg Albuterol/Ipratropium (Duoneb -) 1 amp NEB QIDR [facility] Last Admin: 09/25/16 07:30 Dose: 1 amp Atorvastatin Calcium (Lipitor -) 20 mg PO HS [facility] Last Admin: 09/24/16 21:38 Dose: 20 mg Carvedilol 12.5 mg/ Carvedilol (6.25 mg) 18.75 mg PO BID [facility] Last Admin: 09/24/16 22:00 Dose: 18.75 mg Dronedarone (Multaq -) 400 mg PO BID [facility] Last Admin: 09/25/16 02:56 Dose: Not Given Febuxostat (Uloric -) 80 mg PO DAILY [facility] Gabapentin (Neurontin -) 100 mg PO TID [facility] Last Admin: 09/25/16 06:14 Dose: 100 mg Guaifenesin (Diabetic Tussin Dm -) 10 ml PO Q4H PRN PRN Reason: COUGH Last Admin: 09/24/16 15:59 Dose: 10 ml Insulin Aspart (Novolog Vial Sliding Scale -) 1 vial SQ ACHS [facility] PRN Reason: Protocol Last Admin: 09/25/16 06:15 Dose: 4 units Insulin Aspart (Novolog Mix 70/30 Vial) 20 units SQ BIDAC [facility] Last Admin: 09/25/16 06:15 Dose: 20 units Lidocaine (Lidoderm Patch -) 1 patch TP DAILY [facility] Last Admin: 09/24/16 17:38 Dose: Not Given Methylprednisolone Sodium Succinate (Solu-Medrol -) 40 mg IVPB Q6H-IV [facility] Last Admin: 09/25/16 02:57 Dose: 40 mg Pantoprazole Sodium (Protonix -) 40 mg PO DAILY [facility] Last Admin: 09/24/16 17:38 Dose: 40 mg Torsemide (Demadex -) 100 mg PO DAILY [facility] Warfarin Sodium (Coumadin -) 3 mg PO DAILY@1800 [facility] Last Admin: 09/24/16 17:38 Dose: 3 mg - Objective Vital Signs: Vital Signs Temperature 98.3 F 09/25/16 02:00 Pulse Rate 76 09/25/16 02:00 Respiratory Rate 20 09/25/16 02:00 Blood Pressure 136/69 09/25/16 02:00 O2 Sat by Pulse Oximetry (%) 98 09/25/16 07:14 Constitutional: Yes: Calm, Obese Eyes: Yes: WNL HENT: Yes: WNL Neck: Yes: Supple Cardiovascular: Yes: Pulse Irregular, S1, S2 Respiratory: Yes: Rales (FEW SCATTERED WHEEZES,FEW BIBASILAR CRACKLES) Gastrointestinal: Yes: Normal Bowel Sounds, Soft Extremities: Yes: WNL Edema: Yes Labs: INR, PTT INR 2.87 (0.82-1.09) H 09/24/16 06:00 Problem List - Problems (1) Cough Code(s): R05 - COUGH (2) Acute on chronic renal failure Code(s): N17.9 - ACUTE KIDNEY FAILURE, UNSPECIFIED N18.9 - CHRONIC KIDNEY DISEASE, UNSPECIFIED (3) Atrial fibrillation Code(s): I48.91 - UNSPECIFIED ATRIAL FIBRILLATION (4) CHF exacerbation Code(s): I50.9 - HEART FAILURE, UNSPECIFIED (5) Elevated brain natriuretic peptide (BNP) level Code(s): R79.89 - OTHER SPECIFIED ABNORMAL FINDINGS OF BLOOD CHEMISTRY (6) Insulin dependent diabetes mellitus Code(s): E11.9 - TYPE 2 DIABETES MELLITUS WITHOUT COMPLICATIONS Z79.4 - BUSINESS PERFORMANCE MANAGER (CURRENT) USE OF INSULIN (7) Lower extremity edema Code(s): R60.0 - LOCALIZED EDEMA (8) Obstructive lung disease Code(s): J44.9 - CHRONIC OBSTRUCTIVE PULMONARY DISEASE, UNSPECIFIED (9) S/P coronary artery stent placement Code(s): Z95.5 - PRESENCE OF CORONARY ANGIOPLASTY IMPLANT AND GRAFT (10) Sleep apnea Code(s): G47.30 - SLEEP APNEA, UNSPECIFIED Assessment/Plan IMP CHEST CONGESTION,DYSPNEA IMPROVING COPD EXACERBATION CHF ACUTE ON CHRONIC RENAL FAILURE AFIB S/P PPM ASHD S/P STENTS HTN OSAS ON CPAP 14cm H2O MORBID OBESITY IDDM PLAN ANTIBIOTICS INHALED BRONCHODLATORS DIURETICS PER CARDIOLOGY NASAL O2 STEROID TAPER GLYCEMIC CONTROL ANTITUSSIVES STRICT I+OS DAILY WTS MONITOR LYTES,RENAL FUNCTION DR MCKEON Problem List - Problems (1) Cough Code(s): R05 - COUGH (2) Acute on chronic renal failure Code(s): N17.9 - ACUTE KIDNEY FAILURE, UNSPECIFIED N18.9 - CHRONIC KIDNEY DISEASE, UNSPECIFIED (3) Atrial fibrillation Code(s): I48.91 - UNSPECIFIED ATRIAL FIBRILLATION (4) CHF exacerbation Code(s): I50.9 - HEART FAILURE, UNSPECIFIED (5) Elevated brain natriuretic peptide (BNP) level Code(s): R79.89 - OTHER SPECIFIED ABNORMAL FINDINGS OF BLOOD CHEMISTRY (6) Insulin dependent diabetes mellitus Code(s): E11.9 - TYPE 2 DIABETES MELLITUS WITHOUT COMPLICATIONS Z79.4 - SENIOR CARE (CURRENT) USE OF INSULIN (7) Lower extremity edema Code(s): R60.0 - LOCALIZED EDEMA (8) Obstructive lung disease Code(s): J44.9 - CHRONIC OBSTRUCTIVE PULMONARY DISEASE, UNSPECIFIED (9) S/P coronary artery stent placement Code(s): Z95.5 - PRESENCE OF CORONARY ANGIOPLASTY IMPLANT AND GRAFT (10) Sleep apnea Code(s): G47.30 - SLEEP APNEA, UNSPECIFIED
[2016-09-25] MEDS ORDERED: CARVEDILOL 6.25 MG TABLET (FP) ONE ×2 (10:12→21:25)
[2016-09-25] MEDS ORDERED: CARVEDILOL 12.5 MG TABLET (FP) ONE ×2 (10:12→21:25)
[2016-09-25] MEDS ORDERED: PT OWN MED DRAWER 7, Y5N ONE (10:13)
[2016-09-25] MEDS: LIDOCAINE 5% TOPICAL PATCH TP SCH (10:18)
[2016-09-25] MEDS: PANTOPRAZOLE 40 MG TABLET (FP) PO SCH (10:18)
[2016-09-25] MEDS: CARVEDILOL 12.5 MG, CARVEDILOL 6.25 MG PO SCH ×2 (10:18→21:32)
[2016-09-25] MEDS: TORSEMIDE 100 MG TABLET PO SCH (10:18)
--- NOTE | 2016-09-25 10:20 | HP ---
Admitting History and Physical - Primary Care Physician PCP: Dawson Alberts - Admission Chief Complaint: AE CHF History Source: Medical Record - Past Medical History Cardiovascular: Yes: AFIB, CAD, HTN, Hyperlipdemia Pulmonary: Yes: COPD Renal/: Yes: Renal Inusuff, BPH, Other (Hyperuricemia) Heme/Onc: Yes: Anemia Musculoskeletal: Yes: Chronic low back pain, Osteoarthritis Rheumatology: Yes: Gout Endocrine: Yes: Diabetes Mellitus, Other (goiter) - Past Surgical History Past Surgical History: Yes: Permanent Pacemaker, Stent - Smoking History Smoking history: Former smoker Have you smoked in the past 12 months: No Aproximately how many cigarettes per day: 0 If you are a former smoker, when did you quit?: 2005 - Alcohol/Substance Use Hx Alcohol Use: No History of Substance Use: reports: None Home Medications - Allergies Allergies/Adverse Reactions: Allergies Allergy/AdvReac Type Severity Reaction Status Date / Time levofloxacin [From Levaquin] Allergy Intermediate EYE Verified 09/24/16 05:44 IRRITATION - Home Medications Home Medications: Ambulatory Orders Dronedarone HCl [Multaq -] 400 mg PO BID #0 tab 03/10/12 Febuxostat [Uloric -] 80 mg PO DAILY #0 tab 03/10/12 Lidocaine 5% Patch [Lidoderm -] 1 patch TP DAILY #0 patch 03/10/12 Acetaminophen [Tylenol .Extra-Strength -] 1,000 mg PO Q6H PRN 11/26/13 Ergocalciferol (Vitamin D2) [Vitamin D] 50,000 unit PO WEEKLY 11/26/13 Esomeprazole Mag Trihydrate [Nexium] 40 mg PO DAILY 11/26/13 Insulin Regular, Human [Humulin R -] 2 units SQ ASDIR PRN 11/26/13 Gabapentin 100 mg PO HS 12/30/13 Warfarin Sodium [Coumadin] 3 mg PO ASDIR 12/30/13 Insulin (Novolog 70/30) [Novolog Mix 70/30 Flexpen -] 15 units SQ BID 02/17/14 Atorvastatin Ca [Lipitor] 20 mg PO HS 06/17/15 Torsemide [Demadex -] 100 mg PO DAILY tablet 06/23/15 Iron Dextran Complex [Infed] 100 mg IJ ASDIR 10/04/15 Dulaglutide [Trulicity] 0.75 mg SQ WEEKLY 10/05/15 Carvedilol [Coreg -] 18.75 mg PO DAILY 09/24/16 Family Disease History - Family Disease History Family Disease History: Diabetes: Brother Review of Systems - Review of Systems Constitutional: denies: Chills, Fever Cardiovascular: denies: Chest Pain Respiratory: reports: SOB Gastrointestinal: denies: Abdominal Pain Physical Examination Vital Signs: Vital Signs Temperature 98.3 F 09/25/16 02:00 Pulse Rate 76 09/25/16 02:00 Respiratory Rate 20 09/25/16 02:00 Blood Pressure 136/69 09/25/16 02:00 O2 Sat by Pulse Oximetry (%) 98 09/25/16 07:14 Constitutional: Yes: Calm Neck: Yes: WNL Cardiovascular: Yes: WNL Respiratory: Yes: WNL Gastrointestinal: Yes: WNL, Abdomen, Obese Edema: Yes Imaging - Results Chest X-ray: Report Reviewed Problem List - Problems (1) Chest pain Code(s): R07.9 - CHEST PAIN, UNSPECIFIED Qualifiers: Qualified Code(s): R07.89 - Other chest pain; R07.8 - Other chest pain (2) Systolic CHF, acute on chronic Code(s): I50.23 - ACUTE ON CHRONIC SYSTOLIC (CONGESTIVE) HEART FAILURE (3) Acute on chronic renal failure Code(s): N17.9 - ACUTE KIDNEY FAILURE, UNSPECIFIED N18.9 - CHRONIC KIDNEY DISEASE, UNSPECIFIED (4) Anemia Code(s): D64.9 - ANEMIA, UNSPECIFIED (5) Atrial fibrillation Code(s): I48.91 - UNSPECIFIED ATRIAL FIBRILLATION (6) Chronic kidney disease (CKD) Code(s): N18.9 - CHRONIC KIDNEY DISEASE, UNSPECIFIED Qualifiers: Qualified Code(s): N18.3 - Chronic kidney disease, stage 3 (moderate) (7) HTN (hypertension) Code(s): I10 - ESSENTIAL (PRIMARY) HYPERTENSION (8) Type 2 diabetes mellitus with diabetic peripheral angiopathy with gangrene Code(s): E11.52 - TYPE 2 DIABETES W DIABETIC PERIPHERAL ANGIOPATHY W GANGRENE Assessment/Plan HISTORY OF PRESENT ILLNESS: 61 yo M with hx of HTN, IDDM, COPD, CHF, afib, obesity, s/p 4 stents, pacemaker placement presents to ED with increasing chest discomfort ("not chest pain") x 3 days. Patient states he has a productive cough and "you can hear rattling in my chest." Patient denies any fever, nausea , vomiting, diarrhea. He does report "maybe a little increased swelling to left foot" recently but reports that his left foot is "always more swollen than the right foot, and I see my stoneworking belt sander all the time to check the circulation". (1) Chest pain Code(s): R07.9 - CHEST PAIN, UNSPECIFIED Qualifiers: Chest pain type: other chest pain Qualified Code(s): R07.89 - Other chest pain; R07.8 - Other chest pain (2) Systolic CHF, acute on chronic Code(s): I50.23 - ACUTE ON CHRONIC SYSTOLIC (CONGESTIVE) HEART FAILURE (3) Acute on chronic renal failure Code(s): N17.9 - ACUTE KIDNEY FAILURE, UNSPECIFIED N18.9 - CHRONIC KIDNEY DISEASE, UNSPECIFIED (4) Anemia Code(s): D64.9 - ANEMIA, UNSPECIFIED Qualifiers: Anemia type: iron deficiency (5) Atrial fibrillation Code(s): I48.91 - UNSPECIFIED ATRIAL FIBRILLATION (6) Chronic kidney disease (CKD) Code(s): N18.9 - CHRONIC KIDNEY DISEASE, UNSPECIFIED Qualifiers: Chronic kidney disease stage: stage 3 (moderate) Qualified Code(s): N18.3 - Chronic kidney disease, stage 3 (moderate) (7) HTN (hypertension) Code(s): I10 - ESSENTIAL (PRIMARY) HYPERTENSION (8) Type 2 diabetes mellitus with diabetic peripheral angiopathy with gangrene Code(s): E11.52 - TYPE 2 DIABETES W DIABETIC PERIPHERAL ANGIOPATHY W GANGRENE TROP NEG x 2 CARDIO & PULM ON CASE RENAL ON CASE FOR CONOR ON CKD AC FOR AFIB IV STEROIDS COMPENSATION MANAGER FM
[2016-09-25 11:42] LABS: CALCIUM 8.6 mg/dL (8.5-10.1); COCKROFT - GAULT 57.62; CREATININE 2.9 mg/dL (0.7-1.3)
[2016-09-25] MEDS: FEBUXOSTAT 80 MG TAB PO SCH (12:24)
--- NOTE | 2016-09-25 12:36 | CONSULT ---
Consult Consult Specialty:: Nephrology ( [facility]/ [facility]) Referred by:: Dr. Desai Reason for Consultation:: Many thanks for this consult. The patient has elevated Serum Creatinine, and hence the renal consult. - History of Present Illness Chief Complaint: The patient is a 61 y/o male with multiple medical problems, including Diabetes Mellitus, Hypertension, COPD, A Fib, CHF, Coronary artery disease, with h/o PTIC, PPM. The patient has stage 3-4 CKD , microvascular disease. Had been carefully followed by Nephrology services as out patient. - History Source History Provided By: Patient, Medical Record Limitations to Obtaining History: No Limitations - Past Medical History Cardio/Vascular: Yes: AFIB, CAD, HTN, Hyperlipdemia Pulmonary: Yes: COPD Renal/: Yes: Renal Inusuff, BPH, Other (Hyperuricemia) Musculoskeletal: Yes: Chronic low back pain, Osteoarthritis Rheumatology: Yes: Gout Endocrine: Yes: Diabetes Mellitus, Other (goiter) - Past Surgical History Past Surgical History: Yes: Permanent Pacemaker, Stent - Alcohol/Substance Use Hx Alcohol Use: No History of Substance Use: reports: None - Smoking History Smoking history: Former smoker Have you smoked in the past 12 months: No Aproximately how many cigarettes per day: 0 If you are a former smoker, when did you quit?: 2005 Home Medications - Allergies Allergies/Adverse Reactions: Allergies Allergy/AdvReac Type Severity Reaction Status Date / Time levofloxacin [From Levaquin] Allergy Intermediate EYE Verified 09/24/16 05:44 IRRITATION - Home Medications Home Medications: Ambulatory Orders Dronedarone HCl [Multaq -] 400 mg PO BID #0 tab 03/10/12 Febuxostat [Uloric -] 80 mg PO DAILY #0 tab 03/10/12 Lidocaine 5% Patch [Lidoderm -] 1 patch TP DAILY #0 patch 03/10/12 Acetaminophen [Tylenol .Extra-Strength -] 1,000 mg PO Q6H PRN 11/26/13 Ergocalciferol (Vitamin D2) [Vitamin D] 50,000 unit PO WEEKLY 11/26/13 Esomeprazole Mag Trihydrate [Nexium] 40 mg PO DAILY 11/26/13 Insulin Regular, Human [Humulin R -] 2 units SQ ASDIR PRN 11/26/13 Gabapentin 100 mg PO HS 12/30/13 Warfarin Sodium [Coumadin] 3 mg PO ASDIR 12/30/13 Insulin (Novolog 70/30) [Novolog Mix 70/30 Flexpen -] 15 units SQ BID 02/17/14 Atorvastatin Ca [Lipitor] 20 mg PO HS 06/17/15 Torsemide [Demadex -] 100 mg PO DAILY tablet 06/23/15 Iron Dextran Complex [Infed] 100 mg IJ ASDIR 10/04/15 Dulaglutide [Trulicity] 0.75 mg SQ WEEKLY 10/05/15 Carvedilol [Coreg -] 18.75 mg PO DAILY 09/24/16 Family Disease History - Family Disease History Family Disease History: Diabetes: Brother Review of Systems - Review of Systems Constitutional: denies: No Symptoms, Chills, Diaphoresis, Fever, Lethargy, Loss of Appetite, Malaise, Night Sweats, Unintentional Wgt. Loss, Weakness, Other HENT: reports: No Symptoms Neck: reports: No Symptoms Respiratory: reports: Orthopnea, SOB, SOB on Exertion, Wheezing Gastrointestinal: denies: No Symptoms, Abdominal Pain, Bloating, Constipation, Diarrhea, Dysphagia, Indigestion, Melena, Nausea, Rectal Bleeding, Vomiting, Vomiting Blood, Other Genitourinary: denies: Burning, Dysuria, Frequency, Incontinence Musculoskeletal: denies: No Symptoms, Back Pain, Crepitus, Decreased ROM, Extremity Pain, Joint Pain, Joint Swelling, Muscle Pain, Muscle Cramps, Muscle Weakness, Other Integumentary: denies: No Symptoms, Blister, Bruising, Change in Color, Eczema, Erythema, Incision, Lesions, Lump, Pallor, Pruritis, Rash, Wound, Other Physical Exam Vital Signs: Vital Signs Temperature 98 F 09/25/16 09:00 Pulse Rate 78 09/25/16 09:00 Respiratory Rate 18 09/25/16 09:00 Blood Pressure 134/79 09/25/16 09:00 O2 Sat by Pulse Oximetry (%) 98 09/25/16 07:14 Constitutional: Yes: Well Nourished, No Distress, Obese Eyes: Yes: WNL, Conjunctiva Clear, EOM Intact HENT: Yes: WNL, Atraumatic, Normocephalic Neck: Yes: WNL, Supple, Trachea Midline Respiratory: Yes: Regular, Diminished, Poor Air Entry, Rhonchi Gastrointestinal: Yes: Normal Bowel Sounds, Abdomen, Obese Renal/: No: Bladder Distention, CVA Tenderness - Left, CVA Tenderness - Right Edema: Yes Edema: LLE: 4+ (Chronic lymphedema), RLE: 4+ (Chronic lymphedema) Labs: CBC, BMP 09/25/16 09:50 Problem List - Problems (1) Chest pain Code(s): R07.9 - CHEST PAIN, UNSPECIFIED Qualifiers: Chest pain type: other chest pain Qualified Code(s): R07.89 - Other chest pain; R07.8 - Other chest pain (2) Cough Code(s): R05 - COUGH (3) Systolic CHF, acute on chronic Code(s): I50.23 - ACUTE ON CHRONIC SYSTOLIC (CONGESTIVE) HEART FAILURE (4) Anemia Code(s): D64.9 - ANEMIA, UNSPECIFIED Qualifiers: Anemia type: iron deficiency (5) Atrial fibrillation Code(s): I48.91 - UNSPECIFIED ATRIAL FIBRILLATION (6) Chronic kidney disease (CKD) Code(s): N18.9 - CHRONIC KIDNEY DISEASE, UNSPECIFIED Qualifiers: Chronic kidney disease stage: stage 3 (moderate) Qualified Code(s): N18.3 - Chronic kidney disease, stage 3 (moderate) (7) Insulin dependent diabetes mellitus Code(s): E11.9 - TYPE 2 DIABETES MELLITUS WITHOUT COMPLICATIONS Z79.4 - [facility] (CURRENT) USE OF INSULIN (8) Lower extremity edema Code(s): R60.0 - LOCALIZED EDEMA (9) Pacemaker Code(s): Z95.0 - PRESENCE OF CARDIAC PACEMAKER (10) Type 2 diabetes mellitus with diabetic peripheral angiopathy with gangrene Code(s): E11.52 - TYPE 2 DIABETES W DIABETIC PERIPHERAL ANGIOPATHY W GANGRENE Assessment/Plan 61 y/o male with multiple medical problems admitted with acute shortness of braeth, and possible Acute COPD Exacerbation. The Patient has h/o advanced Microvascular Renal disease, from multifactorial etiology. The azotemia is fairly stable at this point. Maintains excellent urine output. Reviewed the labs and Medications. Plans: Concur with the current management. No specific interventions at this point. Will monitor the renal/electrolyte profile with you. Thanks again. Laura Canales MD
[2016-09-25 13:20] LABS: INR 3.22 (0.82-1.09); PROTHROMBIN TIME (PATIENT) 36.3 SEC (9.98-11.88)
[2016-09-25] MEDS: WARFARIN NA 3 MG TABLET PO SCH (17:18)
[2016-09-25] MEDS ORDERED: INSULIN (NOVOLOG) ASPART 100 UNITS/ML 10ML VIAL ONE (21:25)
[2016-09-25] MEDS: ATORVASTATIN CA 20 MG TABLET (FP) PO SCH (21:32)
[2016-09-26] MEDS: guaiFENesin/D-M SUGAR-FREE/ACLHOL-FREE 118 ML BOTTLE PO PRN (01:49)
[2016-09-26] MEDS: GABAPENTIN 100 MG CAPSULE (FP) PO SCH ×3 (06:42→21:45)
[2016-09-26] MEDS: INSULIN SLIDING SCALE (NOVOLOG) 1 VIAL SQ SCH ×4 (06:42→21:39)
[2016-09-26] MEDS: INSULIN (NOVOLOG MIX 70/30) 100 UNITS/ML MDV SQ SCH ×2 (06:43→17:28)
[2016-09-26] MEDS: ALBUTEROL SO4 2.5/IPRATROPIUM 0.5 INH SOL 3 ML VIAL.NEB. NEB SCH ×4 (06:46→23:36)
[2016-09-26 08:38] LABS: BASOPHIL 0.1 % (0-2.0); MCH 28.8 pg (25.7-33.7); MCHC 33.2 g/dl (32.0-35.9); MEAN CELL VOLUME 86.8 fl (80-96); MEAN PLT VOLUME 9.2 fl (7.5-11.1); NEUTROPHILS 93.5 % (42.8-82.8); PLATELET COUNT 135 K/MM3 (134-434); RDW 15.1 % (11.9-15.9); WHITE BLOOD COUNT 9.1 K/mm3 (4.0-10.0)
[2016-09-26 08:44] LABS: INR 3.32 (0.82-1.09); PROTHROMBIN TIME (PATIENT) 37.4 SEC (9.98-11.88)
--- NOTE | 2016-09-26 08:48 | PN ---
Progress Note, Physician Chief Complaint: sob History of Present Illness: no more sob or chest discomfort no leg swelling no palpitations - Current Medication List Current Medications: Active Medications Acetaminophen (Tylenol -) 650 mg PO Q6H PRN PRN Reason: FEVER OR PAIN Last Admin: 09/24/16 16:42 Dose: 650 mg Albuterol/Ipratropium (Duoneb -) 1 amp NEB QIDR [facility] Last Admin: 09/26/16 06:46 Dose: 1 amp Atorvastatin Calcium (Lipitor -) 20 mg PO HS [facility] Last Admin: 09/25/16 21:32 Dose: 20 mg Carvedilol 12.5 mg/ Carvedilol (6.25 mg) 18.75 mg PO BID [facility] Last Admin: 09/25/16 21:32 Dose: 18.75 mg Febuxostat (Uloric -) 80 mg PO DAILY [facility] Last Admin: 09/25/16 12:24 Dose: 80 mg Gabapentin (Neurontin -) 100 mg PO TID [facility] Last Admin: 09/26/16 06:42 Dose: Not Given Guaifenesin (Diabetic Tussin Dm -) 10 ml PO Q4H PRN PRN Reason: COUGH Last Admin: 09/26/16 01:49 Dose: 10 ml Insulin Aspart (Novolog Vial Sliding Scale -) 1 vial SQ ACHS [facility] PRN Reason: Protocol Last Admin: 09/26/16 06:42 Dose: 4 units Insulin Aspart (Novolog Mix 70/30 Vial) 20 units SQ BIDAC [facility] Last Admin: 09/26/16 06:43 Dose: 20 units Lidocaine (Lidoderm Patch -) 1 patch TP DAILY [facility] Last Admin: 09/25/16 10:18 Dose: Not Given Methylprednisolone Sodium Succinate (Solu-Medrol -) 40 mg IVPB BID [facility] Last Admin: 09/25/16 21:33 Dose: 40 mg Pantoprazole Sodium (Protonix -) 40 mg PO DAILY [facility] Last Admin: 09/25/16 10:18 Dose: 40 mg Torsemide (Demadex -) 100 mg PO DAILY [facility] Last Admin: 09/25/16 10:18 Dose: 100 mg Warfarin Sodium (Coumadin -) 3 mg PO DAILY@1800 [facility] Last Admin: 09/25/16 17:18 Dose: Not Given - Objective Vital Signs: Vital Signs Temperature 98.3 F 09/26/16 06:00 Pulse Rate 71 09/26/16 08:39 Respiratory Rate 18 09/26/16 08:39 Blood Pressure 138/78 09/26/16 08:39 O2 Sat by Pulse Oximetry (%) 96 09/26/16 00:47 Constitutional: Yes: No Distress, Calm, Obese Cardiovascular: Yes: Regular Rate and Rhythm, S1, S2. No: Gallop, Murmur Respiratory: Yes: Regular, CTA Bilaterally. No: Accessory Muscle Use, Rales, Wheezes Extremities: No: Cold Edema: No Neurological: Yes: Alert, Oriented Psychiatric: No: Agitated Labs: CBC, BMP 09/26/16 06:30 INR, PTT INR 3.22 (0.82-1.09) H 09/25/16 12:45 Assessment/Plan EKG: a-v paced tele: av paced CXR: no infiltrate or evidence of failure Echo 10/19 ([facility]): nl LV size with mild-mod global HK (EF 45%); mild MR RHC 10/19: wedge 25, PA 50/20; CI 2.7-->nitroprusside: wedge 10, PA 25/15; CI 2.4 cath 02/2014: mLAD ESTER for ISR, patent stents in mRCA, pLAD, PLCx, OM1, residual ISR 50-60% OM2 stent acute sob, cough, acute bronchospasm - sudden onset wheezing at home and feeling of constricted air flow in chest, in setting of viral URI - signif prior tobacco exposures, no prior h/o athma/copd to his knowledge - appears euvolemic, cxr clear and no venous redistribution/congestion noted - reliably with wt trend up and LE swelling with chf in past--none at present - pt has history of known asthma/copd per my d/w dr day - plan for short course steroids trial (ongoing) - pulm following--? maintenance BDs per their recs Ischemic cardiomyopathy, chronic syst chf - clinically euvolemic (as above) - dry wt runs 332-338, wt 335 here - BNP 3K (range 1K-5K) - s/p one dose lasix 80 ivp in ER - continuing home torsemide 100 mg qd - con't coreg 18.75 bid (home dose) - no NAKUL due to fluctuating creatinine history - observe wt trend and periph edema closely on steroids (wt and LE swelling are his usual chf signs) parox Afib: - previous DCCV yrs ago, maintained on multaq for rhythm control - multaq stopped 2015 by EP at [facility] due to worsening creatinine (improved to 2.5 range from 3 at that time) - no AF noted since - cont BB as doing - On AC with coumadin. inr dosing per pmd--H/H has been stable, with no signs recurrent occult GIB (has hx of this 2016) SSS s/p biotronik PPM - routine office checks CAD - s/p multiple PCI's, most recent 02/2014 --mLAD ESTER PCI for ISR--stable, minimal residual, - not on anti-platelet due to h/o gib and pt on coumadin - no anginal sx's, trop negative x 2, EKG v-pacing - not on NAKUL due to fluctuating creatinines HTN - well controlled on current regimen HL - on atorvastatin, cont same CKD: - baseline creat since chf optimized and multaq d/c'd has been 2.6-3.2 (on longstanding torsemide 100 qd regimen at home) - renal fxn stable here anemia - baseling hgb 9s-10s - counts stable here OSMRA - compliant with cpap DM - per pmd OK FOR D/C FROM [facility] POINT OF VIEW
[2016-09-26 09:10] LABS: ALBUMIN 3.2 g/dl (3.4-5.0); BILIRUBIN,TOTAL 0.6 mg/dL (0.2-1.0); CALCIUM 8.8 mg/dL (8.5-10.1); COCKROFT - GAULT 59.72; CREATININE 2.8 mg/dL (0.7-1.3); TOT PROT 7.3 g/dl (6.4-8.2)
[2016-09-26 09:15] LABS: TROPONIN I < 0.02 ng/ml (0.00-0.05)
[2016-09-26] MEDS ORDERED: CARVEDILOL 6.25 MG TABLET (FP) ONE ×2 (11:05→21:41)
[2016-09-26] MEDS ORDERED: CARVEDILOL 12.5 MG TABLET (FP) ONE ×2 (11:05→21:41)
[2016-09-26] MEDS: CARVEDILOL 12.5 MG, CARVEDILOL 6.25 MG PO SCH ×2 (11:07→21:44)
[2016-09-26] MEDS: PANTOPRAZOLE 40 MG TABLET (FP) PO SCH (11:07)
[2016-09-26] MEDS: methylPREDNISolone NA SUCC 40 MG/1 ML VIAL IVPB SCH ×2 (11:08→21:45)
[2016-09-26] MEDS: FEBUXOSTAT 80 MG TAB PO SCH (11:08)
[2016-09-26] MEDS: LIDOCAINE 5% TOPICAL PATCH TP SCH (11:08)
[2016-09-26] MEDS: TORSEMIDE 100 MG TABLET PO SCH (11:08)
[2016-09-26] MEDS ORDERED: INSULIN (NOVOLOG) ASPART 100 UNITS/ML 10ML VIAL ONE (12:13)
--- NOTE | 2016-09-26 12:46 | PN ---
Progress Note, Physician History of Present Illness: pulmonary alert,sitting up in ,-sob,less cough,-cp - Current Medication List Current Medications: Active Medications Acetaminophen (Tylenol -) 650 mg PO Q6H PRN PRN Reason: FEVER OR PAIN Last Admin: 09/24/16 16:42 Dose: 650 mg Albuterol/Ipratropium (Duoneb -) 1 amp NEB QIDR [facility] Last Admin: 09/26/16 11:25 Dose: 1 amp Atorvastatin Calcium (Lipitor -) 20 mg PO HS [facility] Last Admin: 09/25/16 21:32 Dose: 20 mg Carvedilol 12.5 mg/ Carvedilol (6.25 mg) 18.75 mg PO BID [facility] Last Admin: 09/26/16 11:07 Dose: 18.75 mg Febuxostat (Uloric -) 80 mg PO DAILY [facility] Last Admin: 09/26/16 11:08 Dose: 80 mg Gabapentin (Neurontin -) 100 mg PO TID [facility] Last Admin: 09/26/16 06:42 Dose: Not Given Guaifenesin (Diabetic Tussin Dm -) 10 ml PO Q4H PRN PRN Reason: COUGH Last Admin: 09/26/16 01:49 Dose: 10 ml Insulin Aspart (Novolog Vial Sliding Scale -) 1 vial SQ ACHS [facility] PRN Reason: Protocol Last Admin: 09/26/16 12:15 Dose: 4 units Insulin Aspart (Novolog Mix 70/30 Vial) 20 units SQ BIDAC [facility] Last Admin: 09/26/16 06:43 Dose: 20 units Lidocaine (Lidoderm Patch -) 1 patch TP DAILY [facility] Last Admin: 09/26/16 11:08 Dose: Not Given Methylprednisolone Sodium Succinate (Solu-Medrol -) 40 mg IVPB BID [facility] Last Admin: 09/26/16 11:08 Dose: 40 mg Pantoprazole Sodium (Protonix -) 40 mg PO DAILY [facility] Last Admin: 09/26/16 11:07 Dose: 40 mg Torsemide (Demadex -) 100 mg PO DAILY [facility] Last Admin: 09/26/16 11:08 Dose: 100 mg Warfarin Sodium (Coumadin -) 3 mg PO DAILY@1800 [facility] Last Admin: 09/25/16 17:18 Dose: Not Given - Objective Vital Signs: Vital Signs Temperature 98.3 F 09/26/16 06:00 Pulse Rate 71 09/26/16 08:39 Respiratory Rate 18 09/26/16 08:39 Blood Pressure 138/78 09/26/16 08:39 O2 Sat by Pulse Oximetry (%) 96 09/26/16 11:23 Constitutional: Yes: Calm, Thin Eyes: Yes: WNL HENT: Yes: WNL Neck: Yes: WNL Cardiovascular: Yes: Pulse Irregular, S1, S2 Respiratory: Yes: Rales (few bibasilar crackles) Gastrointestinal: Yes: Normal Bowel Sounds, Soft Extremities: Yes: WNL Edema: Yes Labs: CBC, BMP 09/26/16 06:30 09/26/16 06:30 INR, PTT INR 3.32 (0.82-1.09) H 09/26/16 06:30 Problem List - Problems (1) Cough Code(s): R05 - COUGH (2) Acute on chronic renal failure Code(s): N17.9 - ACUTE KIDNEY FAILURE, UNSPECIFIED N18.9 - CHRONIC KIDNEY DISEASE, UNSPECIFIED (3) Atrial fibrillation Code(s): I48.91 - UNSPECIFIED ATRIAL FIBRILLATION (4) CHF exacerbation Code(s): I50.9 - HEART FAILURE, UNSPECIFIED (5) Elevated brain natriuretic peptide (BNP) level Code(s): R79.89 - OTHER SPECIFIED ABNORMAL FINDINGS OF BLOOD CHEMISTRY (6) Insulin dependent diabetes mellitus Code(s): E11.9 - TYPE 2 DIABETES MELLITUS WITHOUT COMPLICATIONS Z79.4 - RESIDENTIAL (CURRENT) USE OF INSULIN (7) Lower extremity edema Code(s): R60.0 - LOCALIZED EDEMA (8) Obstructive lung disease Code(s): J44.9 - CHRONIC OBSTRUCTIVE PULMONARY DISEASE, UNSPECIFIED (9) S/P coronary artery stent placement Code(s): Z95.5 - PRESENCE OF CORONARY ANGIOPLASTY IMPLANT AND GRAFT (10) Sleep apnea Code(s): G47.30 - SLEEP APNEA, UNSPECIFIED Assessment/Plan IMP CHEST CONGESTION,DYSPNEA IMPROVING COPD EXACERBATION improving CHF ACUTE ON CHRONIC RENAL FAILURE AFIB S/P PPM ASHD S/P STENTS HTN OSAS ON CPAP 14cm H2O MORBID OBESITY IDDM PLAN ANTIBIOTICS INHALED BRONCHODILATORS NASAL O2 STEROID TAPER GLYCEMIC CONTROL ANTITUSSIVES STRICT I+OS DAILY WTS MONITOR LYTES,RENAL FUNCTION DR MCKEON Problem List - Problems (1) Cough Code(s): R05 - COUGH (2) Acute on chronic renal failure Code(s): N17.9 - ACUTE KIDNEY FAILURE, UNSPECIFIED N18.9 - CHRONIC KIDNEY DISEASE, UNSPECIFIED (3) Atrial fibrillation Code(s): I48.91 - UNSPECIFIED ATRIAL FIBRILLATION (4) CHF exacerbation Code(s): I50.9 - HEART FAILURE, UNSPECIFIED (5) Elevated brain natriuretic peptide (BNP) level Code(s): R79.89 - OTHER SPECIFIED ABNORMAL FINDINGS OF BLOOD CHEMISTRY (6) Insulin dependent diabetes mellitus Code(s): E11.9 - TYPE 2 DIABETES MELLITUS WITHOUT COMPLICATIONS Z79.4 - SYSTEMS SUPPORT OFFICER (CURRENT) USE OF INSULIN (7) Lower extremity edema Code(s): R60.0 - LOCALIZED EDEMA (8) Obstructive lung disease Code(s): J44.9 - CHRONIC OBSTRUCTIVE PULMONARY DISEASE, UNSPECIFIED (9) S/P coronary artery stent placement Code(s): Z95.5 - PRESENCE OF CORONARY ANGIOPLASTY IMPLANT AND GRAFT (10) Sleep apnea Code(s): G47.30 - SLEEP APNEA, UNSPECIFIED
--- NOTE | 2016-09-26 15:07 | PN ---
Progress Note, Physician Chief Complaint: no complaints with family - Current Medication List Current Medications: Active Medications Acetaminophen (Tylenol -) 650 mg PO Q6H PRN PRN Reason: FEVER OR PAIN Last Admin: 09/24/16 16:42 Dose: 650 mg Albuterol/Ipratropium (Duoneb -) 1 amp NEB QIDR [facility] Last Admin: 09/26/16 11:25 Dose: 1 amp Amoxicillin/Clavulanate Potassium (Augmentin - 875mg Tablet) 1 tab PO BID@0800, 1730 [facility] Atorvastatin Calcium (Lipitor -) 20 mg PO HS [facility] Last Admin: 09/25/16 21:32 Dose: 20 mg Carvedilol 12.5 mg/ Carvedilol (6.25 mg) 18.75 mg PO BID [facility] Last Admin: 09/26/16 11:07 Dose: 18.75 mg Febuxostat (Uloric -) 80 mg PO DAILY [facility] Last Admin: 09/26/16 11:08 Dose: 80 mg Gabapentin (Neurontin -) 100 mg PO TID [facility] Last Admin: 09/26/16 14:54 Dose: Not Given Guaifenesin (Diabetic Tussin Dm -) 10 ml PO Q4H PRN PRN Reason: COUGH Last Admin: 09/26/16 01:49 Dose: 10 ml Insulin Aspart (Novolog Mix 70/30 Vial) 35 units SQ BIDAC [facility] Insulin Aspart (Novolog Vial Sliding Scale -) 1 vial SQ ACHS [facility] PRN Reason: Protocol Lidocaine (Lidoderm Patch -) 1 patch TP DAILY [facility] Last Admin: 09/26/16 11:08 Dose: Not Given Methylprednisolone Sodium Succinate (Solu-Medrol -) 40 mg IVPB BID [facility] Stop: 09/26/16 22:00 Last Admin: 09/26/16 11:08 Dose: 40 mg Methylprednisolone Sodium Succinate (Solu-Medrol -) 40 mg IVPB DAILY [facility] Pantoprazole Sodium (Protonix -) 40 mg PO DAILY [facility] Last Admin: 09/26/16 11:07 Dose: 40 mg Torsemide (Demadex -) 100 mg PO DAILY [facility] Last Admin: 09/26/16 11:08 Dose: 100 mg Warfarin Sodium (Coumadin -) 3 mg PO DAILY@1800 [facility] Last Admin: 09/25/16 17:18 Dose: Not Given - Objective Vital Signs: Vital Signs Temperature 97.8 F 09/26/16 13:43 Pulse Rate 68 09/26/16 13:43 Respiratory Rate 17 09/26/16 13:43 Blood Pressure 138/78 09/26/16 08:39 O2 Sat by Pulse Oximetry (%) 96 09/26/16 11:23 Constitutional: Yes: Calm Neck: Yes: WNL Cardiovascular: Yes: WNL Respiratory: Yes: WNL Gastrointestinal: Yes: WNL, Abdomen, Obese Edema: Yes Labs: CBC, BMP 09/26/16 06:30 09/26/16 06:30 INR, PTT INR 3.32 (0.82-1.09) H 09/26/16 06:30 Problem List - Problems (1) Chest pain Code(s): R07.9 - CHEST PAIN, UNSPECIFIED Qualifiers: Qualified Code(s): R07.89 - Other chest pain; R07.8 - Other chest pain (2) Systolic CHF, acute on chronic Code(s): I50.23 - ACUTE ON CHRONIC SYSTOLIC (CONGESTIVE) HEART FAILURE (3) Acute on chronic renal failure Code(s): N17.9 - ACUTE KIDNEY FAILURE, UNSPECIFIED N18.9 - CHRONIC KIDNEY DISEASE, UNSPECIFIED (4) Anemia Code(s): D64.9 - ANEMIA, UNSPECIFIED (5) Atrial fibrillation Code(s): I48.91 - UNSPECIFIED ATRIAL FIBRILLATION (6) Chronic kidney disease (CKD) Code(s): N18.9 - CHRONIC KIDNEY DISEASE, UNSPECIFIED Qualifiers: Qualified Code(s): N18.3 - Chronic kidney disease, stage 3 (moderate) (7) HTN (hypertension) Code(s): I10 - ESSENTIAL (PRIMARY) HYPERTENSION (8) Type 2 diabetes mellitus with diabetic peripheral angiopathy with gangrene Code(s): E11.52 - TYPE 2 DIABETES W DIABETIC PERIPHERAL ANGIOPATHY W GANGRENE Assessment/Plan HISTORY OF PRESENT ILLNESS: 61 yo M with hx of HTN, IDDM, COPD, CHF, afib, obesity, s/p 4 stents, pacemaker placement presents to ED with increasing chest discomfort ("not chest pain") x 3 days. Patient states he has a productive cough and "you can hear rattling in my chest." Patient denies any fever, nausea , vomiting, diarrhea. He does report "maybe a little increased swelling to left foot" recently but reports that his left foot is "always more swollen than the right foot, and I see my sugar presser all the time to check the circulation". (1) Chest pain Code(s): R07.9 - CHEST PAIN, UNSPECIFIED Qualifiers: Chest pain type: other chest pain Qualified Code(s): R07.89 - Other chest pain; R07.8 - Other chest pain (2) Systolic CHF, acute on chronic Code(s): I50.23 - ACUTE ON CHRONIC SYSTOLIC (CONGESTIVE) HEART FAILURE (3) Acute on chronic renal failure Code(s): N17.9 - ACUTE KIDNEY FAILURE, UNSPECIFIED N18.9 - CHRONIC KIDNEY DISEASE, UNSPECIFIED (4) Anemia Code(s): D64.9 - ANEMIA, UNSPECIFIED Qualifiers: Anemia type: iron deficiency (5) Atrial fibrillation Code(s): I48.91 - UNSPECIFIED ATRIAL FIBRILLATION (6) Chronic kidney disease (CKD) Code(s): N18.9 - CHRONIC KIDNEY DISEASE, UNSPECIFIED Qualifiers: Chronic kidney disease stage: stage 3 (moderate) Qualified Code(s): N18.3 - Chronic kidney disease, stage 3 (moderate) (7) HTN (hypertension) Code(s): I10 - ESSENTIAL (PRIMARY) HYPERTENSION (8) Type 2 diabetes mellitus with diabetic peripheral angiopathy with gangrene Code(s): E11.52 - TYPE 2 DIABETES W DIABETIC PERIPHERAL ANGIOPATHY W GANGRENE AE COPD TROP NEG x 2 CARDIO/ENDO/PULM ON CASE RENAL ON CASE FOR CONOR ON CKD INR SUPRATHERAPEUTIC -> WARFARIN ADJUSTED IV STEROIDS -> TAPERING PO ABx DISCHARGE PLANNING PASTOR AVILES
--- NOTE | 2016-09-26 15:28 | CONSULT ---
Consult Consult Specialty:: endocrine Referred by:: dr.rabadi de la cruz Reason for Consultation:: iddm uncontrolled - History of Present Illness Chief Complaint: difficulty breathing cough and high sugars History of Present Illness: 61 yo M with hx of HTN, IDDM, COPD, CHF, afib, obesity, s/p 4 stents, pacemaker placement presents to ED with increasing chest discomfort ("not chest pain") x 3 days. Patient states he has a productive cough and "you can hear rattling in my chest.has had chronic chf,lower extremity edema,and fluid retention has long history of hyperglycemia,diet and weight related. - History Source History Provided By: Patient - Past Medical History Cardio/Vascular: Yes: AFIB, CAD, HTN, Hyperlipdemia Pulmonary: Yes: COPD Renal/: Yes: Renal Inusuff, BPH, Other (Hyperuricemia) Musculoskeletal: Yes: Chronic low back pain, Osteoarthritis Rheumatology: Yes: Gout Endocrine: Yes: Diabetes Mellitus, Other (goiter) - Past Surgical History Past Surgical History: Yes: Permanent Pacemaker, Stent - Alcohol/Substance Use Hx Alcohol Use: No History of Substance Use: reports: None - Smoking History Smoking history: Former smoker Have you smoked in the past 12 months: No Aproximately how many cigarettes per day: 0 If you are a former smoker, when did you quit?: 2005 Home Medications - Allergies Allergies/Adverse Reactions: Allergies Allergy/AdvReac Type Severity Reaction Status Date / Time levofloxacin [From Levaquin] Allergy Intermediate EYE Verified 09/24/16 05:44 IRRITATION - Home Medications Home Medications: Ambulatory Orders Dronedarone HCl [Multaq -] 400 mg PO BID #0 tab 03/10/12 Febuxostat [Uloric -] 80 mg PO DAILY #0 tab 03/10/12 Lidocaine 5% Patch [Lidoderm -] 1 patch TP DAILY #0 patch 03/10/12 Acetaminophen [Tylenol .Extra-Strength -] 1,000 mg PO Q6H PRN 11/26/13 Ergocalciferol (Vitamin D2) [Vitamin D] 50,000 unit PO WEEKLY 11/26/13 Esomeprazole Mag Trihydrate [Nexium] 40 mg PO DAILY 11/26/13 Insulin Regular, Human [Humulin R -] 2 units SQ ASDIR PRN 11/26/13 Gabapentin 100 mg PO HS 07/27/14 Warfarin Sodium [Coumadin] 3 mg PO ASDIR 12/30/13 Insulin (Novolog 70/30) [Novolog Mix 70/30 Flexpen -] 15 units SQ BID 02/17/14 Atorvastatin Ca [Lipitor] 20 mg PO HS 06/17/15 Torsemide [Demadex -] 100 mg PO DAILY tablet 06/23/15 Iron Dextran Complex [Infed] 100 mg IJ ASDIR 10/04/15 Dulaglutide [Trulicity] 0.75 mg SQ WEEKLY 10/05/15 Carvedilol [Coreg -] 18.75 mg PO DAILY 09/24/16 Family Disease History - Family Disease History Family Disease History: Diabetes: Brother Review of Systems - Review of Systems Constitutional: reports: Lethargy, Weakness Eyes: reports: No Symptoms HENT: reports: No Symptoms Neck: reports: No Symptoms Cardiovascular: reports: Edema, Palpitations, Shortness of Breath Respiratory: reports: Cough, Exercise Intolerance, SOB on Exertion Gastrointestinal: reports: Bloating Genitourinary: reports: No Symptoms Musculoskeletal: reports: Muscle Pain, Muscle Cramps, Muscle Weakness Integumentary: reports: No Symptoms Neurological: reports: Weakness Endocrine: reports: Unexplained Weight Gain Physical Exam Vital Signs: Vital Signs Temperature 97.8 F 09/26/16 13:43 Pulse Rate 68 09/26/16 13:43 Respiratory Rate 17 09/26/16 13:43 Blood Pressure 138/78 09/26/16 08:39 O2 Sat by Pulse Oximetry (%) 96 09/26/16 11:23 Constitutional: Yes: Anxious Eyes: Yes: EOM Intact HENT: Yes: Normocephalic Neck: Yes: Trachea Midline Cardiovascular: Yes: S2 Respiratory: Yes: CTA Bilaterally, Rales, Rhonchi, SOB, Tachypnea Gastrointestinal: Yes: Normal Bowel Sounds, Abdomen, Obese ...Rectal Exam: Yes: Deferred Breast(s): Yes: WNL Musculoskeletal: Yes: Joint Swelling, Muscle Weakness Extremities: Yes: Delayed Capillary Refill, Erythema Edema: LLE: 2+, RLE: 2+ Neurological: Yes: Alert, Oriented, Tingling Labs: CBC, BMP 09/26/16 06:30 09/26/16 06:30 Assessment/Plan Current Active Problems Chest pain (Acute) Cough (Acute) Systolic CHF, acute on chronic (Acute) iddm uncontrolled ckd diabetic kidney disease morbid obesity Abnormal Lab Results 09/26/16 09/26/16 09/26/16 06:30 06:30 06:30 RBC 3.65 L Hgb 10.5 L D Hct 31.6 L Neutrophils % 93.5 H D Lymphocytes % 4.0 L D Monocytes % 2.4 L D INR 3.32 H BUN 85 H Creatinine 2.8 H Random Glucose 287 H Creatine Kinase Albumin 3.2 L 09/26/16 06:30 RBC Hgb Hct Neutrophils % Lymphocytes % Monocytes % INR BUN Creatinine Random Glucose Creatine Kinase 374 H D Albumin Laboratory Results - last 24 hr 09/25/16 09/25/16 09/26/16 16:46 21:29 06:14 WBC RBC Hgb Hct MCV MCHC RDW Plt Count MPV Neutrophils % Lymphocytes % Monocytes % Eosinophils % Basophils % INR Sodium Potassium Chloride Carbon Dioxide Anion Gap BUN Creatinine Creat Clearance w eGFR POC Glucometer 284 270 263 Random Glucose Calcium Total Bilirubin AST ALT Alkaline Phosphatase Creatine Kinase Creatine Kinase Index CK-MB (CK-2) CK-MB (CK-2) Rel Index Troponin I Total Protein Albumin 09/26/16 09/26/16 09/26/16 06:30 06:30 06:30 WBC 9.1 D RBC 3.65 L Hgb 10.5 L D Hct 31.6 L MCV 86.8 MCHC 33.2 RDW 15.1 Plt Count 135 MPV 9.2 Neutrophils % 93.5 H D Lymphocytes % 4.0 L D Monocytes % 2.4 L D Eosinophils % 0.0 D Basophils % 0.1 INR 3.32 H Sodium 139 Potassium 3.8 Chloride 101 Carbon Dioxide 26 Anion Gap 12 BUN 85 H Creatinine 2.8 H Creat Clearance w eGFR 23.15 POC Glucometer Random Glucose 287 H Calcium 8.8 Total Bilirubin 0.6 D AST 21 ALT 27 Alkaline Phosphatase 93 Creatine Kinase Creatine Kinase Index CK-MB (CK-2) CK-MB (CK-2) Rel Index Troponin I Total Protein 7.3 Albumin 3.2 L 09/26/16 09/26/16 09/26/16 06:30 06:30 12:10 WBC RBC Hgb Hct MCV MCHC RDW Plt Count MPV Neutrophils % Lymphocytes % Monocytes % Eosinophils % Basophils % INR Sodium Potassium Chloride Carbon Dioxide Anion Gap BUN Creatinine Creat Clearance w eGFR POC Glucometer 294 Random Glucose Calcium Total Bilirubin AST ALT Alkaline Phosphatase Creatine Kinase 374 H D Creatine Kinase Index 0.6 CK-MB (CK-2) 2.365 CK-MB (CK-2) Rel Index Cancelled Troponin I < 0.02 Total Protein Albumin plan: bgm qid novolog scale novolog 70/30 bid 35 units since steroid needed
[2016-09-26] MEDS: AMOX TR/POT CLAV 875MG/125MG TABLETS (FP) PO SCH (17:26)
[2016-09-26] MEDS: ATORVASTATIN CA 20 MG TABLET (FP) PO SCH (21:44)
[2016-09-27] MEDS: guaiFENesin/D-M SUGAR-FREE/ACLHOL-FREE 118 ML BOTTLE PO PRN ×2 (01:06→10:15)
[2016-09-27] MEDS: INSULIN (NOVOLOG MIX 70/30) 100 UNITS/ML MDV SQ SCH ×2 (06:38→17:35)
[2016-09-27] MEDS: GABAPENTIN 100 MG CAPSULE (FP) PO SCH ×2 (06:39→13:30)
[2016-09-27] MEDS ORDERED: INSULIN (NOVOLOG) ASPART 100 UNITS/ML 10ML VIAL ONE ×3 (06:40→17:42)
[2016-09-27] MEDS: INSULIN SLIDING SCALE (NOVOLOG) 1 VIAL SQ SCH ×3 (06:40→17:33)
[2016-09-27] MEDS: ALBUTEROL SO4 2.5/IPRATROPIUM 0.5 INH SOL 3 ML VIAL.NEB. NEB SCH ×3 (06:45→16:45)
[2016-09-27 08:09] LABS: BASOPHIL 0.1 % (0-2.0); MCH 28.9 pg (25.7-33.7); MCHC 32.8 g/dl (32.0-35.9); MEAN CELL VOLUME 88.2 fl (80-96); MEAN PLT VOLUME 9.1 fl (7.5-11.1); NEUTROPHILS 93.7 % (42.8-82.8); PLATELET COUNT 141 K/MM3 (134-434); RDW 14.8 % (11.9-15.9); WHITE BLOOD COUNT 10.9 K/mm3 (4.0-10.0)
[2016-09-27 08:16] LABS: INR 2.88 (0.82-1.09); PROTHROMBIN TIME (PATIENT) 32.4 SEC (9.98-11.88)
[2016-09-27 08:28] LABS: ALBUMIN 3.1 g/dl (3.4-5.0); CALCIUM 8.7 mg/dL (8.5-10.1)
[2016-09-27] MEDS: AMOX TR/POT CLAV 875MG/125MG TABLETS (FP) PO SCH ×2 (08:29→17:33)
[2016-09-27 08:31] LABS: BILIRUBIN,TOTAL 0.5 mg/dL (0.2-1.0); COCKROFT - GAULT 59.72; CREATININE 2.8 mg/dL (0.7-1.3); TOT PROT 7.4 g/dl (6.4-8.2)
--- NOTE | 2016-09-27 08:58 | PN ---
Progress Note, Physician History of Present Illness: FEELS BETTER NO CP LESS SOB - Current Medication List Current Medications: Active Medications Acetaminophen (Tylenol -) 650 mg PO Q6H PRN PRN Reason: FEVER OR PAIN Last Admin: 09/24/16 16:42 Dose: 650 mg Albuterol/Ipratropium (Duoneb -) 1 amp NEB QIDR [facility] Last Admin: 09/27/16 06:45 Dose: 1 amp Amoxicillin/Clavulanate Potassium (Augmentin - 875mg Tablet) 1 tab PO BID@0800, 1730 [facility] Last Admin: 09/27/16 08:29 Dose: 1 tab Atorvastatin Calcium (Lipitor -) 20 mg PO HS [facility] Last Admin: 09/26/16 21:44 Dose: 20 mg Carvedilol 12.5 mg/ Carvedilol (6.25 mg) 18.75 mg PO BID [facility] Last Admin: 09/26/16 21:44 Dose: 18.75 mg Febuxostat (Uloric -) 80 mg PO DAILY [facility] Last Admin: 09/26/16 11:08 Dose: 80 mg Gabapentin (Neurontin -) 100 mg PO TID [facility] Last Admin: 09/27/16 06:39 Dose: 100 mg Guaifenesin (Diabetic Tussin Dm -) 10 ml PO Q4H PRN PRN Reason: COUGH Last Admin: 09/27/16 01:06 Dose: 10 ml Insulin Aspart (Novolog Mix 70/30 Vial) 35 units SQ BIDAC [facility] Last Admin: 09/27/16 06:38 Dose: 35 units Insulin Aspart (Novolog Vial Sliding Scale -) 1 vial SQ ACHS [facility] PRN Reason: Protocol Last Admin: 09/27/16 06:40 Dose: 6 units Lidocaine (Lidoderm Patch -) 1 patch TP DAILY [facility] Last Admin: 09/26/16 11:08 Dose: Not Given Methylprednisolone Sodium Succinate (Solu-Medrol -) 40 mg IVPB DAILY [facility] Pantoprazole Sodium (Protonix -) 40 mg PO DAILY [facility] Last Admin: 09/26/16 11:07 Dose: 40 mg Torsemide (Demadex -) 100 mg PO DAILY [facility] Last Admin: 09/26/16 11:08 Dose: 100 mg Warfarin Sodium (Coumadin -) 2.5 mg PO DAILY@1800 [facility] - Objective Vital Signs: Vital Signs Temperature 98 F 09/27/16 05:00 Pulse Rate 70 04/24/17 05:00 Respiratory Rate 20 09/27/16 05:00 Blood Pressure 146/70 09/27/16 05:00 O2 Sat by Pulse Oximetry (%) 97 09/26/16 22:00 Cardiovascular: Yes: Murmur, S1, S2 Respiratory: Yes: Regular, Diminished. No: Wheezes Gastrointestinal: Yes: Normal Bowel Sounds, Soft. No: Tenderness Edema: Yes Edema: LLE: 1+, RLE: 1+ Labs: CBC, BMP 09/27/16 06:50 09/27/16 06:50 INR, PTT INR 2.88 (0.82-1.09) H 09/27/16 06:50 Assessment/Plan Problems (1) Chest pain CE NEGATIVE NO PAIN Code(s): R07.9 - CHEST PAIN, UNSPECIFIED Qualifiers: Qualified Code(s): R07.89 - Other chest pain; R07.8 - Other chest pain (2) Systolic CHF, acute on chronic ON DEMADEX STBLE Code(s): I50.23 - ACUTE ON CHRONIC SYSTOLIC (CONGESTIVE) HEART FAILURE (3) Acute on chronic renal failure AT BASELINE Code(s): N17.9 - ACUTE KIDNEY FAILURE, UNSPECIFIED N18.9 - CHRONIC KIDNEY DISEASE, UNSPECIFIED (4) Anemia DUE TO CKD--STABLE Code(s): D64.9 - ANEMIA, UNSPECIFIED (5) Atrial fibrillation ON COUMADIN--THERAPEUTIC Code(s): I48.91 - UNSPECIFIED ATRIAL FIBRILLATION (6) COPD ON NEBS AND STEROIDS IMPROVING AWAIT CT RESULTS (7) HTN (hypertension) Code(s): I10 - ESSENTIAL (PRIMARY) HYPERTENSION (8) Type 2 diabetes mellitus with diabetic peripheral angiopathy with gangrene PER ENDO Code(s): E11.52 - TYPE 2 DIABETES W DIABETIC PERIPHERAL ANGIOPATHY W GANGRENE
[2016-09-27] MEDS ORDERED: CARVEDILOL 6.25 MG TABLET (FP) ONE (09:49)
[2016-09-27] MEDS ORDERED: CARVEDILOL 12.5 MG TABLET (FP) ONE (09:49)
[2016-09-27] MEDS ORDERED: methylPREDNISolone NA SUCC 40 MG/1 ML VIAL IVPB SCH (10:00)
[2016-09-27] MEDS: LIDOCAINE 5% TOPICAL PATCH TP SCH (10:04)
[2016-09-27] MEDS: CARVEDILOL 12.5 MG, CARVEDILOL 6.25 MG PO SCH (10:04)
[2016-09-27] MEDS: PANTOPRAZOLE 40 MG TABLET (FP) PO SCH (10:04)
[2016-09-27] MEDS: TORSEMIDE 100 MG TABLET PO SCH (10:05)
[2016-09-27] MEDS: FEBUXOSTAT 80 MG TAB PO SCH (10:05)
[2016-09-27] MEDS ORDERED: PT OWN MED DRAWER 7, Y5N ONE (10:13)
--- NOTE | 2016-09-27 11:23 | PN ---
Progress Note, Physician Chief Complaint: sob History of Present Illness: no more sob or chest discomfort no leg swelling no palpitations, cp - Current Medication List Current Medications: Active Medications Acetaminophen (Tylenol -) 650 mg PO Q6H PRN PRN Reason: FEVER OR PAIN Last Admin: 09/24/16 16:42 Dose: 650 mg Albuterol/Ipratropium (Duoneb -) 1 amp NEB QIDR [facility] Last Admin: 09/27/16 06:45 Dose: 1 amp Amoxicillin/Clavulanate Potassium (Augmentin - 875mg Tablet) 1 tab PO BID@0800, 1730 [facility] Last Admin: 09/27/16 08:29 Dose: 1 tab Atorvastatin Calcium (Lipitor -) 20 mg PO HS [facility] Last Admin: 09/26/16 21:44 Dose: 20 mg Carvedilol 12.5 mg/ Carvedilol (6.25 mg) 18.75 mg PO BID [facility] Last Admin: 09/27/16 10:04 Dose: 18.75 mg Febuxostat (Uloric -) 80 mg PO DAILY [facility] Last Admin: 09/27/16 10:05 Dose: 80 mg Gabapentin (Neurontin -) 100 mg PO TID [facility] Last Admin: 09/27/16 06:39 Dose: 100 mg Guaifenesin (Diabetic Tussin Dm -) 10 ml PO Q4H PRN PRN Reason: COUGH Last Admin: 09/27/16 10:15 Dose: 10 ml Insulin Aspart (Novolog Mix 70/30 Vial) 35 units SQ BIDAC [facility] Last Admin: 09/27/16 06:38 Dose: 35 units Insulin Aspart (Novolog Vial Sliding Scale -) 1 vial SQ ACHS [facility] PRN Reason: Protocol Last Admin: 09/27/16 06:40 Dose: 6 units Lidocaine (Lidoderm Patch -) 1 patch TP DAILY [facility] Last Admin: 09/27/16 10:04 Dose: Not Given Methylprednisolone Sodium Succinate (Solu-Medrol -) 40 mg IVPB DAILY [facility] Last Admin: 09/27/16 10:03 Dose: 40 mg Pantoprazole Sodium (Protonix -) 40 mg PO DAILY [facility] Last Admin: 09/27/16 10:04 Dose: 40 mg Torsemide (Demadex -) 100 mg PO DAILY [facility] Last Admin: 09/27/16 10:05 Dose: 100 mg Warfarin Sodium (Coumadin -) 2.5 mg PO DAILY@1800 [facility] - Objective Vital Signs: Vital Signs Temperature 98.3 F 09/27/16 09:00 Pulse Rate 72 09/27/16 09:00 Respiratory Rate 20 09/27/16 09:00 Blood Pressure 137/65 09/27/16 09:00 O2 Sat by Pulse Oximetry (%) 97 09/26/16 22:00 Constitutional: Yes: No Distress, Calm, Obese Cardiovascular: Yes: Regular Rate and Rhythm, S1, S2. No: Gallop, Murmur Respiratory: Yes: Regular, CTA Bilaterally. No: Accessory Muscle Use, Rales, Wheezes Extremities: No: Cold Edema: No Neurological: Yes: Alert, Oriented Psychiatric: No: Agitated Labs: CBC, BMP 09/27/16 06:50 09/27/16 06:50 INR, PTT INR 2.88 (0.82-1.09) H 09/27/16 06:50 Assessment/Plan CXR: no infiltrate or evidence of failure CT chest: bilat patchy infiltrates upper lungs c/w PNA Echo 10/19 ([facility]): nl LV size with mild-mod global HK (EF 45%); mild MR RHC 10/19: wedge 25, PA 50/20; CI 2.7-->nitroprusside: wedge 10, PA 25/15; CI 2.4 cath 02/2014: mLAD ESTER for ISR, patent stents in mRCA, pLAD, PLCx, OM1, residual ISR 50-60% OM2 stent acute sob, cough, acute bronchospasm, ? PNA (CT findings suspicious) - sudden onset wheezing at home and feeling of constricted air flow in chest, in setting of viral URI - signif prior tobacco exposures, no prior h/o athma/copd to his knowledge - appears euvolemic, cxr clear and no venous redistribution/congestion noted - reliably with wt trend up and LE swelling with chf in past--none at present - pt has history of known asthma/copd per my d/w dr day - plan for short course steroids trial (ongoing) - pulm following--? maintenance BDs per their recs; abx course Ischemic cardiomyopathy, chronic syst chf - clinically euvolemic here - dry wt runs 332-338, stable here with no LE edema (tell-tale sign of chf in him in past) - BNP 3K (range 1K-5K) - continuing home torsemide 100 mg qd - con't coreg 18.75 bid (home dose) - no NAKUL due to fluctuating creatinine history - observe wt trend and periph edema closely on steroids (wt and LE swelling are his usual chf signs) parox Afib: - previous DCCV yrs ago, maintained on multaq for rhythm control - multaq stopped 2015 by EP at [facility] due to worsening creatinine (improved to 2.5 range from 3 at that time) - no AF noted since - cont BB as doing - On AC with coumadin. inr dosing per pmd--H/H has been stable, with no signs recurrent occult GIB (has hx of this 2015) -was on coumadin 4mg daily previously--INR 3.3 here, down to 2.8 with dose reduced to 2.5mg daily -change to coumadin 3mg daily--should have recheck in 3-5 days after discharge SSS s/p biotronik PPM - routine office checks CAD - s/p multiple PCI's, most recent 02/2014 --mLAD ESTER PCI for ISR--stable, minimal residual, - not on anti-platelet due to h/o gib and pt on coumadin - no anginal sx's, trop negative x 2, EKG v-pacing - not on NAKUL due to fluctuating creatinines HTN - well controlled on current regimen HL - on atorvastatin, cont same CKD: - baseline creat since chf optimized and multaq d/c'd has been 2.6-3.2 (on longstanding torsemide 100 qd regimen at home) - renal fxn stable here anemia - baseling hgb 9s-10s - counts stable here OSMAR - compliant with cpap DM - per pmd OK FOR D/C FROM [facility] POINT OF VIEW
--- NOTE | 2016-09-27 12:13 | PN ---
Progress Note (short form) - Note Progress Note: PULMONARY Feels better, +cough with brown sputum last night but now clear. No fevers or chills. CT chest done last night showing patchy infiltrates bilaterally. Last Vital Signs Temp Pulse Resp BP Pulse Ox 98.3 F 70 20 137/65 97 09/27/16 09:00 09/27/16 11:34 09/27/16 09:00 09/27/16 09:00 09/27/16 11:34 Gen: NAD at rest Heart: RRR Lung: distant breath sounds, no wheezes Abd: soft, nontender Ext: chronic skin changes, no edema CBC, BMP 09/27/16 06:50 09/27/16 06:50 Active Medications Acetaminophen (Tylenol -) 650 mg PO Q6H PRN PRN Reason: FEVER OR PAIN Last Admin: 09/24/16 16:42 Dose: 650 mg Albuterol/Ipratropium (Duoneb -) 1 amp NEB QIDR [facility] Last Admin: 09/27/16 11:34 Dose: 1 amp Amoxicillin/Clavulanate Potassium (Augmentin - 875mg Tablet) 1 tab PO BID@0800, 1730 [facility] Last Admin: 09/27/16 08:29 Dose: 1 tab Atorvastatin Calcium (Lipitor -) 20 mg PO HS [facility] Last Admin: 09/26/16 21:44 Dose: 20 mg Carvedilol 12.5 mg/ Carvedilol (6.25 mg) 18.75 mg PO BID [facility] Last Admin: 09/27/16 10:04 Dose: 18.75 mg Febuxostat (Uloric -) 80 mg PO DAILY [facility] Last Admin: 09/27/16 10:05 Dose: 80 mg Gabapentin (Neurontin -) 100 mg PO TID [facility] Last Admin: 09/27/16 06:39 Dose: 100 mg Guaifenesin (Diabetic Tussin Dm -) 10 ml PO Q4H PRN PRN Reason: COUGH Last Admin: 09/27/16 10:15 Dose: 10 ml Insulin Aspart (Novolog Mix 70/30 Vial) 35 units SQ BIDAC [facility] Last Admin: 09/27/16 06:38 Dose: 35 units Insulin Aspart (Novolog Vial Sliding Scale -) 1 vial SQ ACHS [facility] PRN Reason: Protocol Last Admin: 09/27/16 12:06 Dose: 7 units Lidocaine (Lidoderm Patch -) 1 patch TP DAILY [facility] Last Admin: 09/27/16 10:04 Dose: Not Given Methylprednisolone Sodium Succinate (Solu-Medrol -) 40 mg IVPB DAILY [facility] Last Admin: 09/27/16 10:03 Dose: 40 mg Pantoprazole Sodium (Protonix -) 40 mg PO DAILY [facility] Last Admin: 09/27/16 10:04 Dose: 40 mg Torsemide (Demadex -) 100 mg PO DAILY [facility] Last Admin: 09/27/16 10:05 Dose: 100 mg Warfarin Sodium (Coumadin -) 3 mg PO DAILY@1800 [facility] A/P Pneumonia Acute COPD Exacerbation LV Systolic Dysfunction Acute on Chronic Renal Failure CAD Atrial Fibrillation HTN Morbid Obesity OSMAR DM - can change steroids to PO - complete antibiotics - beta amanda, torsemide - continue anticoagulation - CPAP at night - can d/c home from pulmonary standpoint - outpt PFTs - will need outpt f/u of chest imaging in 6-8 weeks to ensure resolution of infiltrates
--- NOTE | 2016-09-27 13:46 | PN ---
Progress Note, Physician Chief Complaint: Patient sitting by his bed. Comfortable. reports feeling better. Occasional cough still persists. No chest pain. Maintains good urine output. - Current Medication List Current Medications: Active Medications Acetaminophen (Tylenol -) 650 mg PO Q6H PRN PRN Reason: FEVER OR PAIN Last Admin: 09/24/16 16:42 Dose: 650 mg Albuterol/Ipratropium (Duoneb -) 1 amp NEB QIDR [facility] Last Admin: 09/27/16 11:34 Dose: 1 amp Amoxicillin/Clavulanate Potassium (Augmentin - 875mg Tablet) 1 tab PO BID@0800, 1730 [facility] Last Admin: 09/27/16 08:29 Dose: 1 tab Atorvastatin Calcium (Lipitor -) 20 mg PO HS [facility] Last Admin: 09/26/16 21:44 Dose: 20 mg Carvedilol 12.5 mg/ Carvedilol (6.25 mg) 18.75 mg PO BID [facility] Last Admin: 09/27/16 10:04 Dose: 18.75 mg Febuxostat (Uloric -) 80 mg PO DAILY [facility] Last Admin: 09/27/16 10:05 Dose: 80 mg Gabapentin (Neurontin -) 100 mg PO TID [facility] Last Admin: 09/27/16 13:30 Dose: 100 mg Guaifenesin (Diabetic Tussin Dm -) 10 ml PO Q4H PRN PRN Reason: COUGH Last Admin: 09/27/16 10:15 Dose: 10 ml Insulin Aspart (Novolog Mix 70/30 Vial) 35 units SQ BIDAC [facility] Last Admin: 09/27/16 06:38 Dose: 35 units Insulin Aspart (Novolog Vial Sliding Scale -) 1 vial SQ ACHS [facility] PRN Reason: Protocol Last Admin: 09/27/16 12:06 Dose: 7 units Lidocaine (Lidoderm Patch -) 1 patch TP DAILY [facility] Last Admin: 09/27/16 10:04 Dose: Not Given Methylprednisolone Sodium Succinate (Solu-Medrol -) 40 mg IVPB DAILY [facility] Last Admin: 09/27/16 10:03 Dose: 40 mg Pantoprazole Sodium (Protonix -) 40 mg PO DAILY [facility] Last Admin: 09/27/16 10:04 Dose: 40 mg Torsemide (Demadex -) 100 mg PO DAILY [facility] Last Admin: 09/27/16 10:05 Dose: 100 mg Warfarin Sodium (Coumadin -) 3 mg PO DAILY@1800 [facility] - Objective Vital Signs: Vital Signs Temperature 98.3 F 09/27/16 09:00 Pulse Rate 70 09/27/16 11:34 Respiratory Rate 20 09/27/16 09:00 Blood Pressure 137/65 09/27/16 09:00 O2 Sat by Pulse Oximetry (%) 97 09/27/16 11:34 Constitutional: Yes: Well Nourished, No Distress Eyes: Yes: WNL HENT: Yes: Atraumatic Neck: Yes: Supple Cardiovascular: Yes: Regular Rate and Rhythm, S1, S2 Respiratory: Yes: Regular, Diminished, Rhonchi Gastrointestinal: Yes: Normal Bowel Sounds, Soft, Abdomen, Obese Edema: Yes Edema: LLE: 2+, RLE: 2+ Neurological: Yes: Alert, Oriented Psychiatric: Yes: Alert, Oriented Labs: CBC, BMP 09/27/16 06:50 09/27/16 06:50 INR, PTT INR 2.88 (0.82-1.09) H 09/27/16 06:50 Problem List - Problems (1) Chest pain Code(s): R07.9 - CHEST PAIN, UNSPECIFIED Qualifiers: Qualified Code(s): R07.89 - Other chest pain; R07.8 - Other chest pain (2) Cough Code(s): R05 - COUGH (3) Systolic CHF, acute on chronic Code(s): I50.23 - ACUTE ON CHRONIC SYSTOLIC (CONGESTIVE) HEART FAILURE (4) Anemia Code(s): D64.9 - ANEMIA, UNSPECIFIED (5) Atrial fibrillation Code(s): I48.91 - UNSPECIFIED ATRIAL FIBRILLATION (6) Chronic kidney disease (CKD) Code(s): N18.9 - CHRONIC KIDNEY DISEASE, UNSPECIFIED Qualifiers: Qualified Code(s): N18.3 - Chronic kidney disease, stage 3 (moderate) (7) Insulin dependent diabetes mellitus Code(s): E11.9 - TYPE 2 DIABETES MELLITUS WITHOUT COMPLICATIONS Z79.4 - MASTER GLAZIER (CURRENT) USE OF INSULIN (8) Lower extremity edema Code(s): R60.0 - LOCALIZED EDEMA (9) Pacemaker Code(s): Z95.0 - PRESENCE OF CARDIAC PACEMAKER (10) Type 2 diabetes mellitus with diabetic peripheral angiopathy with gangrene Code(s): E11.52 - TYPE 2 DIABETES W DIABETIC PERIPHERAL ANGIOPATHY W GANGRENE Assessment/Plan 61 y/o male with multiple medical problems admitted with acute shortness of breath. ? Pneumonia. On Abx and Steroids The Patient has h/o advanced Microvascular Renal disease, from multifactorial etiology. The azotemia is fairly stable at this point. Maintains excellent urine output. Reviewed the labs and Medications. Plans: Concur with the current management. No specific interventions at this point. Will monitor the renal/electrolyte profile with you. Thanks again. Laura Canales MD
--- NOTE | 2016-09-27 15:54 | PN ---
Progress Note (short form) - Note Progress Note: ID Consult dictated Pneumonia Exacerbation COPD Azotemia Obtain sputum c/s Continue Augmentin 875mg po bid x 7d
[2016-09-27] MEDS ORDERED: WARFARIN NA 3 MG TABLET PO SCH (18:00)
[2016-09-27] MEDS ORDERED: WARFARIN NA 2.5 MG TABLET (FP) PO SCH (18:00)
[2016-09-27 18:11] VITALS: BP 138/80; PULSE 70; TEMP 98
--- NOTE | 2016-09-27 23:50 | CONS ---
DATE OF CONSULTATION: DATE OF DICTATION: 09/27/2016 INFECTIOUS DISEASE CONSULTATION REASON FOR CONSULTATION: A 61-year-old male evaluated for pneumonia. HISTORY OF PRESENT ILLNESS: The patient was admitted to the hospital with a 3-day history of cough and congestion. He was diagnosed with decompensated congestive heart failure. The patient underwent a CAT scan of the chest as a followup for an abnormal finding in the past. He was noted to have some patchy infiltrates in the lung ventura bilaterally. Patient reports cough productive of whitish sputum. He occasionally coughs up dark sputum but denies any liliam hemoptysis. He has been afebrile with a normal white blood cell count. He has no known ill contacts, no recent travel. He is a former smoker, stopped 10 years ago. No recent hospitalizations. PAST MEDICAL HISTORY: Positive for hypertension, diabetes, COPD, congestive heart failure, atrial fibrillation, coronary artery disease status post coronary artery stents. PAST SURGICAL HISTORY: Status post permanent pacemaker. ALLERGIES: LEVAQUIN. SOCIAL HISTORY: Former smoker. Lives at home with family members. No recent hospitalizations. SYSTEMS REVIEW: Neurologic: No loss of consciousness, seizure activity, or focal weakness. Cardiac: Negative chest pain or palpitations. Respiratory: As per HPI. Gastrointestinal: Negative vomiting or diarrhea. Genitourinary: Negative for urinary tract infection. LABORATORY DATA: White count 10.9, hematocrit 32.7, platelet count 141. BUN 87, creatinine 2.8, blood cultures negative. PHYSICAL EXAMINATION: General: He is awake and alert. He is not acutely toxic appearing, in no acute distress. Vital signs: Temperature 98.3, blood pressure 140/80, pulse 71 regular, respirations 20 per minute. Patient morbidly obese. HEENT: Anicteric. Cardiovascular: Heart sounds S1, S2. Respiratory: Lungs fine crepitations at the bases bilaterally, no rhonchi or wheezing. Abdomen: Obese. Soft. Nontender. Extremities: Positive for edema. IMPRESSION: 1. Acute exacerbation chronic obstructive pulmonary disease. 2. Decompensated congestive heart failure. 3. Patchy bilateral pneumonia community acquired versus atypical. 4. Chronic kidney disease. Continue treatment for COPD exacerbation and congestive heart failure. Empiric antibiotic coverage with Augmentin 875 mg p.o. b.i.d. for 7 days. Outpatient pulmonary followup. Case discussed with patient's son present at the time of the examination. Thank you for the kind referral. ALFRED HAMMONDS M.D. [id number]
== END 2016-09-27 18:26 | disposition home or self-care (01) | DRG 190 ==
LOC: JER 05:13 → JERBED 09:40 → J4W 12:40 → OBSVTOIN 09-25 06:50 → J6S 09-25 18:35
PROVIDERS: ADMIT Family Medicine; ATTEND Family Medicine
PROC: 5A09557 Assistance with Respiratory Ventilation, Greater than 96 Consecutive Hours, Continuous Positive Airway Pressure (ICD-10-PCS; principal; 2016-09-24)
DX: J44.0 Chronic obstructive pulmonary disease with (acute) lower respiratory infection (principal); J18.9 Pneumonia, unspecified organism; I50.23 Acute on chronic systolic (congestive) heart failure; I13.0 Hypertensive heart and chronic kidney disease with heart failure and stage 1 through stage 4 chronic kidney disease, or unspecified chronic kidney disease; N17.9 Acute kidney failure, unspecified; Z68.43 Body mass index [BMI] 50.0-59.9, adult; E11.52 Type 2 diabetes mellitus with diabetic peripheral angiopathy with gangrene; J44.1 Chronic obstructive pulmonary disease with (acute) exacerbation; E11.22 Type 2 diabetes mellitus with diabetic chronic kidney disease; N18.9 Chronic kidney disease, unspecified; I25.10 Atherosclerotic heart disease of native coronary artery without angina pectoris; G47.33 Obstructive sleep apnea (adult) (pediatric); E66.01 Morbid (severe) obesity due to excess calories; D64.9 Anemia, unspecified; Z79.4 Long term (current) use of insulin; Z95.0 Presence of cardiac pacemaker; R07.9 Chest pain, unspecified; I25.5 Ischemic cardiomyopathy; I48.0 Paroxysmal atrial fibrillation; Z98.61 Coronary angioplasty status; Z87.891 Personal history of nicotine dependence; E78.5 Hyperlipidemia, unspecified; E11.65 Type 2 diabetes mellitus with hyperglycemia; J20.9 Acute bronchitis, unspecified
CPT/HCPCS: 36415; 71010-TC; 71020-TC; 71250-TC; 80048; 80053; 82550; 82553; 83735; 83880; 84484; 85025; 85610; 87040; 87254; 87804; 93005; 93010; 94640; 94660; 99285-25; G0378

== ENCOUNTER 2017-02-15 23:40 | Inpatient (IN) | payer BC, OTHER ==
[2017-02-15] MEDS ORDERED: ASPIRIN 81 MG CHEWABLE TABLETS PO ONE (23:59)
--- NOTE | 2017-02-15 23:59 | PDOC ---
History of Present Illness - General History Source: Patient <Beni Melendez - Last Filed: 02/16/17 01:33> - General History Source: Patient Exam Limitations: No Limitations - History of Present Illness Initial Comments: 02/16/17 00:05 The patient is a 61 year old male, with significant past medical history of HTN , IDDM, COPD, afib, obesity, s/p stents and pacemaker placement, who presents to the emergency room with midsternal, nonradiating chest tightness that started yesterday afternoon. He notes that the chest tightness does not feel like pain and therefore cannot rate the pain on a scale of 1 to 10. He notes that he is compliant with all of his medications. The pain is not exacerbated after eating. Denies fever, chills, nausea, vomiting. Denies diaphoresis. Denies SOB, cough. Denies palpitations Allergies: Levofloxacin PCP: Dr. Victor Operations Leader: Dr. Tyler <Madelaine Jones - Last Filed: 02/16/17 02:35> - General Chief Complaint: Chest Pain Stated Complaint: CHEST PAIN Time Seen by Provider: 02/15/17 23:57 Past History - Past Medical History Anemia: Yes Asthma: No Cancer: No Cardiac Disorders: Yes (Afib/stents, PPM; STENT 02/21/2014) CVA: No COPD: Yes (sleep apnea) CHF: Yes Dementia: No Diabetes: Yes GI Disorders: No Disorders: No HTN: Yes Hypercholesterolemia: Yes Liver Disease: No Seizures: No Thyroid Disease: No - Surgical History Abdominal Surgery: No Appendectomy: No Cardiac Surgery: Yes (STENT INSERTION, pace maker) Cholecystectomy: No Lung Surgery: No Neurologic Surgery: No Orthopedic Surgery: No - Immunization History Td Vaccination: Yes TDAP Vaccination: Yes Immunization Up to Date: Yes - Psycho/Social/Smoking Cessation Hx Anxiety: No Suicidal Ideation: No Smoking Status: No Smoking History: Former smoker Have you smoked in the past 12 months: No Number of Cigarettes Smoked Daily: 0 If you are a former smoker, when did you quit?: 2005 'Breaking Loose' booklet given: 03/09/12 Hx Alcohol Use: No Drug/Substance Use Hx: No Substance Use Type: None Hx Substance Use Treatment: No <Beni Melendez - Last Filed: 02/16/17 01:33> <KarenMadleaine - Last Filed: 02/16/17 02:35> - Past Medical History Allergies/Adverse Reactions: Allergies Allergy/AdvReac Type Severity Reaction Status Date / Time levofloxacin [From Levaquin] Allergy Intermediate EYE Verified 02/15/17 23:57 IRRITATION Home Medications: Ambulatory Orders Febuxostat [Uloric -] 80 mg PO DAILY #0 tab 03/10/12 Lidocaine 5% Patch [Lidoderm -] 1 patch TP DAILY #0 patch 03/10/12 Acetaminophen [Tylenol .Extra-Strength -] 1,000 mg PO Q6H PRN 11/26/13 Ergocalciferol (Vitamin D2) [Vitamin D] 50,000 unit PO WEEKLY 11/26/13 Esomeprazole Mag Trihydrate [Nexium] 40 mg PO DAILY 11/26/13 Insulin Regular, Human [Humulin R -] 2 units SQ ASDIR PRN 11/26/13 Gabapentin 100 mg PO HS 12/30/13 Insulin (Novolog 70/30) [Novolog Mix 70/30 Flexpen -] 15 units SQ BID 02/17/14 Atorvastatin Ca [Lipitor] 20 mg PO HS 06/17/15 Torsemide [Demadex -] 100 mg PO DAILY tablet 06/23/15 Iron Dextran Complex [Infed] 100 mg IJ ASDIR 10/04/15 Dulaglutide [Trulicity] 0.75 mg SQ WEEKLY 10/05/15 Carvedilol [Coreg -] 18.75 mg PO DAILY 09/24/16 Albuterol 2.5/Ipratropium 0.5 [Duoneb -] 1 amp NEB QIDR amp 09/27/16 Amox-Tr/K Cl [Augmentin 875-125mg Tablet -] 1 tab PO BID@0800,1730 #14 tablet Prednisone 10 mg PO DAILY #40 tablet 09/27/16 Warfarin Na [Coumadin -] 2.5 mg PO DAILY@1800 #30 tablet 09/27/16 Review of Systems - Review of Systems Able to Perform ROS?: Yes Comments:: 02/16/17 00:06 CONSTITUTIONAL: Absent: fever, no chills, no fatigue EYES: Absent: visual changes ENT: Absent: ear pain, no sore throat CARDIOVASCULAR: Present: chest tightness. Absent: no palpitations RESPIRATORY: Absent: cough, no SOB GI: Absent: abdominal pain, no nausea, no vomiting, no constipation, no diarrhea GENITOURINARY: Absent: dysuria, no frequency, no hematuria MUSCULOSKELETAL: Absent: back pain, no arthralgia, no myalgia SKIN: Absent: rash <Madelaine Jones - Last Filed: 02/16/17 02:35> *Physical Exam - Vital Signs Last Vital Signs Temp Pulse Resp BP Pulse Ox 98.5 F 76 14 145/68 96 02/15/17 23:57 02/15/17 23:57 02/15/17 23:57 02/15/17 23:57 02/15/17 23:57 - Physical Exam Comments: 02/16/17 00:06 GENERAL: Well-appearing, morbidly obese. No apparent distress. HEENT: Normocephalic, atraumatic. PERRL, EOM intact. CARDIOVASCULAR: Normal S1, S2. Regular rate and rhythm. PULMONARY: Clear to auscultation bilaterally. ABDOMEN: Soft, obese, non-distended, non-tender. EXTREMITIES: Normal ROM in all four extremities. No gross deformities. SKIN: Warm, dry. No rash NEUROLOGICAL: No focal neurological deficits. <Madelaine Jones - Last Filed: 02/16/17 02:35> Heart Score/ECG Review #1 Compared to previous ECG there are: No significant change 02/16/17 00:10 unchanged from 09/24/16 <Madelaine Jones - Last Filed: 02/16/17 02:35> ED Treatment Course - LABORATORY CBC & Chemistry Diagram: 02/16/17 00:30 02/16/17 00:30 <Beni Melendez - Last Filed: 02/16/17 01:33> - LABORATORY CBC & Chemistry Diagram: 02/16/17 00:30 02/16/17 00:30 <Madelaine Jones - Last Filed: 02/16/17 02:35> Medical Decision Making - Medical Decision Making 02/16/17 01:31 Dr. Boudreaux was paged via [employer] service at 1:28am. Awaiting call back. 02/16/17 02:35 Dr. Reveles returned the call and spoke to Dr. Melendez. <Madelaine Jones Last Filed: 02/16/17 02:35> *DC/Admit/Observation/Transfer - Discharge Dispostion Admit: Yes <Beni Melendez - Last Filed: 02/16/17 01:33> - Attestations Scribe Attestion: 02/16/17 00:07 Documentation prepared by SIA Martinez, acting as medical insurance claims specialist for Beni Melendez MD. <Madelaine Jones - Last Filed: 02/16/17 02:35> Diagnosis at time of Disposition: Chronic kidney disease (CKD) Qualifiers: Chronic kidney disease stage: unspecified stage Qualified Code(s): N18.9 - Chronic kidney disease, unspecified Chest pain Qualifiers: Chest pain type: unspecified Qualified Code(s): R07.9 - Chest pain, unspecified - Discharge Dispostion Condition at time of disposition: Stable - Referrals
[2017-02-16 00:44] LABS: BASOPHIL 0.5 % (0-2.0); MCH 28.8 pg (25.7-33.7); MCHC 33.4 g/dl (32.0-35.9); MEAN CELL VOLUME 86.3 fl (80-96); MEAN PLT VOLUME 8.9 fl (7.5-11.1); NEUTROPHILS 77.6 % (42.8-82.8); PLATELET COUNT 151 K/MM3 (134-434); RDW 15.3 % (11.9-15.9); WHITE BLOOD COUNT 8.6 K/mm3 (4.0-10.0)
[2017-02-16 01:01] LABS: INR 2.52 (0.82-1.09); PROTHROMBIN TIME (PATIENT) 28.2 SEC (9.98-11.88)
[2017-02-16 01:12] LABS: ALBUMIN 3.5 g/dl (3.4-5.0); ANION GAP 9 (8-16); BILIRUBIN,TOTAL 0.3 mg/dL (0.2-1.0); CALCIUM 8.6 mg/dL (8.5-10.1); CO2 28 mmol/L (21-32); CREATININE 3.2 mg/dL (0.7-1.3); GLUCOSE,RANDOM 103 mg/dL (74-106); MAGNESIUM 2.1 mg/dL (1.8-2.4); SGOT/AST 12 U/L (15-37); SGPT/ALT 19 U/L (12-78); TOT PROT 7.1 g/dl (6.4-8.2)
[2017-02-16 01:15] LABS: ALK PHOS 83 U/L (45-117); CPK 197 IU/L (39-308); TROPONIN I 0.02 ng/ml (0.00-0.05)
[2017-02-16 03:43] LABS: TROPONIN I 0.02 ng/ml (0.00-0.05)
[2017-02-16 03:50] VITALS: BMI 53.6
[2017-02-16] MEDS ORDERED: FUROSEMIDE 40 MG/4 ML INJECTABLE VIAL IVPUSH SCH (06:00)
[2017-02-16] MEDS: ALBUTEROL SO4 2.5/IPRATROPIUM 0.5 INH SOL 3 ML VIAL.NEB. NEB SCH ×4 (06:30→23:58)
[2017-02-16] MEDS: NITROGLYCERIN 2% OINTMENT - 1GM PACKET TD SCH ×3 (06:45→17:08)
[2017-02-16] MEDS ORDERED: INSULIN (NOVOLOG MIX 70/30) 100 UNITS/ML MDV SQ ONE ×2 (07:00→16:49)
[2017-02-16] MEDS: PATIENT'S OWN MEDICATION (NON-FORMULARY) (Insulin (Novolog 70/30) [Novolog Mix 70/30 Flexp SQ SCH ×2 (07:10→17:07)
[2017-02-16 09:20] LABS: ANION GAP 12 (8-16); CALCIUM 8.5 mg/dL (8.5-10.1); CO2 25 mmol/L (21-32); GLUCOSE,RANDOM 152 mg/dL (74-106)
[2017-02-16 09:24] LABS: CPK 180 IU/L (39-308); TROPONIN I 0.02 ng/ml (0.00-0.05)
--- NOTE | 2017-02-16 09:25 | HP ---
Admitting History and Physical - Admission History of Present Illness: 61 year old male, with significant past medical history of HTN, IDDM, COPD, afib , obesity, s/p stents and pacemaker placement, who presents to the emergency room with midsternal, nonradiating chest tightness that started yesterday afternoon. He notes that the chest tightness does not feel like pain and therefore cannot rate the pain on a scale of 1 to 10. He notes that he is compliant with all of his medications. The pain is not exacerbated after eating. - Past Medical History Cardiovascular: Yes: AFIB, CAD, HTN, Hyperlipdemia Pulmonary: Yes: COPD Renal/: Yes: Renal Inusuff, BPH, Other (Hyperuricemia) Heme/Onc: Yes: Anemia Musculoskeletal: Yes: Chronic low back pain, Osteoarthritis Rheumatology: Yes: Gout Endocrine: Yes: Diabetes Mellitus, Other (goiter) - Past Surgical History Past Surgical History: Yes: Permanent Pacemaker, Stent - Smoking History Smoking history: Former smoker Have you smoked in the past 12 months: No Aproximately how many cigarettes per day: 0 If you are a former smoker, when did you quit?: 2006 - Alcohol/Substance Use Hx Alcohol Use: No History of Substance Use: reports: None Home Medications - Allergies Allergies/Adverse Reactions: Allergies Allergy/AdvReac Type Severity Reaction Status Date / Time levofloxacin [From Levaquin] Allergy Intermediate EYE Verified 02/15/17 23:57 IRRITATION - Home Medications Home Medications: Ambulatory Orders Febuxostat [Uloric -] 80 mg PO DAILY #0 tab 03/10/12 Lidocaine 5% Patch [Lidoderm -] 1 patch TP DAILY #0 patch 03/10/12 Acetaminophen [Tylenol .Extra-Strength -] 1,000 mg PO Q6H PRN 11/26/13 Ergocalciferol (Vitamin D2) [Vitamin D] 50,000 unit PO WEEKLY 11/26/13 Esomeprazole Mag Trihydrate [Nexium] 40 mg PO DAILY 11/26/13 Insulin Regular, Human [Humulin R -] 2 units SQ ASDIR PRN 11/26/13 Gabapentin 100 mg PO HS 12/30/13 Insulin (Novolog 70/30) [Novolog Mix 70/30 Flexpen -] 15 units SQ BID 02/17/14 Atorvastatin Ca [Lipitor] 20 mg PO HS 06/17/15 Torsemide [Demadex -] 100 mg PO DAILY tablet 06/23/15 Iron Dextran Complex [Infed] 100 mg IJ ASDIR 10/04/15 Dulaglutide [Trulicity] 0.75 mg SQ WEEKLY 10/05/15 Carvedilol [Coreg -] 18.75 mg PO DAILY 09/24/16 Albuterol 2.5/Ipratropium 0.5 [Duoneb -] 1 amp NEB QIDR amp 09/27/16 Amox-Tr/K Cl [Augmentin 875-125mg Tablet -] 1 tab PO BID@0800,1730 #14 tablet Prednisone 10 mg PO DAILY #40 tablet 09/27/16 Warfarin Na [Coumadin -] 2.5 mg PO DAILY@1800 #30 tablet 09/27/16 Family Disease History - Family Disease History Family Disease History: Diabetes: Brother Review of Systems - Review of Systems Cardiovascular: reports: Chest Pain, Edema. denies: Palpitations, Shortness of Breath Respiratory: denies: SOB, Wheezing Gastrointestinal: reports: No Symptoms Genitourinary: reports: No Symptoms Musculoskeletal: reports: Back Pain Physical Examination Vital Signs: Vital Signs Temperature 98.4 F 02/16/17 06:07 Pulse Rate 74 02/16/17 06:07 Respiratory Rate 16 02/16/17 06:07 Blood Pressure 124/54 02/16/17 06:07 O2 Sat by Pulse Oximetry (%) 97 02/16/17 03:33 Cardiovascular: Yes: Murmur, S1, S2 Respiratory: Yes: Regular, CTA Bilaterally Gastrointestinal: Yes: Normal Bowel Sounds, Soft, Abdomen, Obese. No: Tenderness Musculoskeletal: Yes: Back Pain Edema: Yes Neurological: Yes: Alert, Oriented Labs: CBC, BMP 02/16/17 08:00 Imaging - Results Chest X-ray: Report Reviewed Problem List - Problems (1) Chest pain Assessment/Plan: Laboratory Tests 02/16/17 02/16/17 02/16/17 00:30 02:45 08:00 Creatine Kinase 197 180 Troponin I 0.02 0.02 0.02 atypical--r/o cardiac etiology--review testing from dr tripp office ct of chest Code(s): R07.9 - CHEST PAIN, UNSPECIFIED Qualifiers: Chest pain type: unspecified Qualified Code(s): R07.9 - Chest pain, unspecified (2) Chronic kidney disease (CKD) Assessment/Plan: Laboratory Tests 07/03/16 09/24/16 09/27/16 11:00 06:00 06:50 Creatinine 3.3 H 3.4 H D 2.8 H 02/16/17 02/16/17 00:30 08:00 Creatinine 3.2 H D 3.0 H at baseline monitor follows up with dr young Code(s): N18.9 - CHRONIC KIDNEY DISEASE, UNSPECIFIED Qualifiers: Chronic kidney disease stage: stage 5, not on chronic dialysis Qualified Code(s): N18.5 - Chronic kidney disease, stage 5 (3) Atrial fibrillation Assessment/Plan: INR, PTT INR 2.52 (0.82-1.09) H 02/16/17 00:30 same coumadin Code(s): I48.91 - UNSPECIFIED ATRIAL FIBRILLATION (4) Back pain Assessment/Plan: ct of thoracic spine Code(s): M54.9 - DORSALGIA, UNSPECIFIED (5) CHF (congestive heart failure) Assessment/Plan: no evidence of failure Code(s): I50.9 - HEART FAILURE, UNSPECIFIED Qualifiers: Congestive heart failure type: systolic Congestive heart failure chronicity: acute on chronic Qualified Code(s): I50.23 - Acute on chronic systolic (congestive) heart failure
[2017-02-16] MEDS ORDERED: CARVEDILOL 12.5 MG TABLET (FP) PO SCH (10:00)
[2017-02-16] MEDS ORDERED: PANTOPRAZOLE SODIUM 40 MG in SODIUM CHLORIDE 100 ML IVPB SCH (10:00)
[2017-02-16] MEDS: predniSONE 10 MG TABLET (UD) PO SCH (10:32)
[2017-02-16] MEDS: LIDOCAINE 5% TOPICAL PATCH TP SCH (10:33)
--- NOTE | 2017-02-16 10:44 | EKG ---
Test Reason : Blood Pressure : / mmHG Vent. Rate : 074 BPM Atrial Rate : 074 BPM P-R Int : 128 ms QRS Dur : 220 ms QT Int : 490 ms P-R-T Axes : 049 -64 103 degrees QTc Int : 543 ms Atrial-sensed ventricular-paced rhythm ABNORMAL ECG WHEN COMPARED WITH ECG OF 15-FEB-2017 23:51, VENT. RATE HAS DECREASED BY 2 BPM Confirmed by HENNA PITTS, WARREN ([id number]) on 02/16/2017 10:44:29 AM Referred By: Richa AGUIRRE Confirmed By:WARREN AGUILLON MD
--- NOTE | 2017-02-16 10:44 | EKG ---
Test Reason : Blood Pressure : / mmHG Vent. Rate : 076 BPM Atrial Rate : 076 BPM P-R Int : 000 ms QRS Dur : 162 ms QT Int : 466 ms P-R-T Axes : 000 -63 118 degrees QTc Int : 524 ms Ventricular-paced rhythm ABNORMAL ECG WHEN COMPARED WITH ECG OF 24-SEP-2016 05:29, VENT. RATE HAS DECREASED BY 2 BPM Confirmed by HENNA PITTS, WARREN ([id number]) on 02/16/2017 10:43:58 AM Referred By: Confirmed By:WARREN AGUILLON MD
--- NOTE | 2017-02-16 11:31 | CON.CARD ---
Cardiology Consult (text) - Consultation Consultation Note: CC: CP hpi: 61 year old with h/o ischemic cardiomyopathy, CAD s/p multiple PCI's, most recent 02/2014, afib, SSS s/p pacemaker, diabetes, chronic kidney disease, asthma , jose on nivppv at home, morbid obesity who p/w cp. Pt was feeling well until yesterday when he was at rest and noticed mild central chest tightness, no radiation. No associated sxs. No sob, palps, dizzy,loc, pnd, orthopnea. Says his chronic le edema and wt have been stable at home. Sees dr pena for cardio. No change in recent weights. + congestion. adherent to torsemide denies fever, diaphoresis, chills, nausea, vomiting, diarrhea, urinary symptoms , rashes, headache claudication, bleeding or transient neurologic symptoms. PMhx: Per hpi Family hx: multiple family members with CAD, cardiomyopathy and arrhythmia Social hx: former smoker, rare alcohol, no illicits ROS: per hpi. Home Medications Medication Instructions Recorded Febuxostat [Uloric -] 80 mg PO DAILY #0 tab 03/10/12 Lidocaine 5% Patch [Lidoderm -] 1 patch TP DAILY #0 patch 03/10/12 Acetaminophen [Tylenol 1,000 mg PO Q6H PRN 11/26/13 .Extra-Strength -] Ergocalciferol (Vitamin D2) 50,000 unit PO WEEKLY 11/26/13 [Vitamin D] Esomeprazole Mag Trihydrate 40 mg PO DAILY 11/26/13 [Nexium] Insulin Regular, Human [Humulin R 2 units SQ ASDIR PRN 11/26/13 -] Gabapentin 100 mg PO HS 12/30/13 Insulin (Novolog 70/30) [Novolog 15 units SQ BID 02/17/14 Mix 70/30 Flexpen -] Atorvastatin Ca [Lipitor] 20 mg PO HS 06/17/15 Torsemide [Demadex -] 100 mg PO DAILY tablet 06/23/15 Iron Dextran Complex [Infed] 100 mg IJ ASDIR 10/04/15 Dulaglutide [Trulicity] 0.75 mg SQ WEEKLY 10/05/15 Carvedilol [Coreg -] 18.75 mg PO DAILY 09/24/16 Albuterol 2.5/Ipratropium 0.5 1 amp NEB QIDR amp 09/27/16 [Duoneb -] Amox-Tr/K Cl [Augmentin 875-125mg 1 tab PO BID@0800,1730 #14 tablet 09/27/16 Tablet -] Prednisone 10 mg PO DAILY #40 tablet 09/27/16 Warfarin Na [Coumadin -] 2.5 mg PO DAILY@1800 #30 tablet 09/27/16 Vital Signs Period Temp Pulse Resp BP Sys/Olsen Pulse Ox Last 24 Hr 98 F-99.1 F 70-88 14-18 124-145/54-70 96-99 NAD, calm JVD flat, neck supple cta bl, nl effort RRR nl S1, s2 no m/r/g + bs soft obese nt nd ext without cyanosis, clubbing trace edema with venous stasis changes + dp/pt no carotid bruits aaox3 no jaundice diaphoresis abd nt nd pos bs Laboratory Last Values WBC 8.6 K/mm3 (4.0-10.0) D 02/16/17 00:30 RBC 3.69 M/mm3 (4.00-5.60) L 02/16/17 00:30 Hgb 10.6 GM/dL (11.7-16.9) L 02/16/17 00:30 Hct 31.8 % (35.4-49) L 02/16/17 00:30 MCV 86.3 fl (80-96) 02/16/17 00:30 MCH 28.8 pg (25.7-33.7) 02/16/17 00:30 MCHC 33.4 g/dl (32.0-35.9) 02/16/17 00:30 RDW 15.3 % (11.9-15.9) 02/16/17 00:30 Plt Count 151 K/MM3 (134-434) 02/16/17 00:30 MPV 8.9 fl (7.5-11.1) 02/16/17 00:30 Neutrophils % 77.6 % (42.8-82.8) 02/16/17 00:30 Lymphocytes % 10.5 % (8-40) D 02/16/17 00:30 Monocytes % 9.4 % (3.8-10.2) 02/16/17 00:30 Eosinophils % 2.0 % (0-4.5) 02/16/17 00:30 Basophils % 0.5 % (0-2.0) 02/16/17 00:30 INR 2.52 (0.82-1.09) H 02/16/17 00:30 Sodium 141 mmol/L (136-145) 02/16/17 08:00 Potassium 3.7 mmol/L (3.5-5.1) 02/16/17 08:00 Chloride 104 mmol/L (98-107) 02/16/17 08:00 Carbon Dioxide 25 mmol/L (21-32) 02/16/17 08:00 Anion Gap 12 (8-16) 02/16/17 08:00 BUN 80 mg/dL (7-18) H 02/16/17 08:00 Creatinine 3.0 mg/dL (0.7-1.3) H 02/16/17 08:00 Creat Clearance w eGFR 19.85 (>60) 02/16/17 00:30 POC Glucometer 137 UNITS (()) 02/16/17 05:45 Random Glucose 152 mg/dL (74-106) H D 02/16/17 08:00 Calcium 8.5 mg/dL (8.5-10.1) 02/16/17 08:00 Magnesium 2.1 mg/dL (1.8-2.4) 02/16/17 00:30 Total Bilirubin 0.3 mg/dL (0.2-1.0) D 02/16/17 00:30 AST 12 U/L (15-37) L D 02/16/17 00:30 ALT 19 U/L (12-78) D 02/16/17 00:30 Alkaline Phosphatase 83 U/L (45-117) 02/16/17 00:30 Creatine Kinase 180 IU/L (39-308) 02/16/17 08:00 Creatine Kinase Index 1.1 % (0.0-5.0) 02/16/17 08:00 CK-MB (CK-2) 2.083 ng/mL (0.5-3.6) 02/16/17 08:00 Troponin I 0.02 ng/ml (0.00-0.05) 02/16/17 08:00 B-Natriuretic Peptide 3669.60 pg/ml (5-125) H 02/16/17 02:45 Total Protein 7.1 g/dl (6.4-8.2) 02/16/17 00:30 Albumin 3.5 g/dl (3.4-5.0) 02/16/17 00:30 CXR: no infiltrate or evidence of failure Echo 10/19 ([facility] [place] [facility]): nl LV size with mild-mod global HK (EF 45%); mild MR RHC 10/19: wedge 25, PA 50/20; CI 2.7-->nitroprusside: wedge 10, PA 25/15; CI 2.4 cath 02/2014: mLAD ESTER for ISR, patent stents in mRCA, pLAD, PLCx, OM1, residual ISR 50-60% OM2 stent ecg 02/15/17: sr, vpaced tele: av paced a/p: 61 year old with h/o ischemic cardiomyopathy, CAD s/p multiple PCI's, most recent 02/2014, afib, SSS s/p pacemaker, diabetes, chronic kidney disease, asthma , jose on nivppv at home, morbid obesity who p/w cp. chest pain: -different than prior symptoms that led to pci, pt thinks it is related to pulled muscle from his back pain (having spine ct today) -ce's neg x3, ecg with vpacing -discussed option of stress testing but pt not interested, says he will f/u with dr pena in office for possible outpt stress testing pending symptom course. currently no concerning/worrisome cardiac symptoms or findings. Ischemic cardiomyopathy, acute on chronic syst chf - dry wt runs 332-338, slightly higher here - can cont with few doses of iv lasix as doing and likely be ready to go back to continuing home torsemide 100 mg qd tomorrow - con't coreg - no NAKUL due to fluctuating creatinine history parox Afib: - previous DCCV yrs ago, maintained on multaq for rhythm control - multaq stopped 2015 by EP at [facility] [place] [facility] due to worsening creatinine (improved to 2.5 range from 3 at that time) - no AF noted since - cont BB as doing - On AC with coumadin per INR SSS s/p biotronik PPM - nl fcn on ecg/tele here. cont with routine office checks. CAD - as above - s/p multiple PCI's, most recent 02/2014 --mLAD ESTER PCI for ISR--stable, minimal residual, - not on anti-platelet due to h/o gib and pt on coumadin - not on NAKUL due to fluctuating creatinines HTN - cont home meds HL - on atorvastatin, cont same CKD: - baseline creat since chf optimized and multaq d/c'd has been 2.6-3.2 (on longstanding torsemide 100 qd regimen at home) - renal fxn stable here
--- NOTE | 2017-02-16 11:36 | PN ---
Progress Note (short form) - Note Progress Note: PULMONARY CONSULTATION DICTATED 02/16/17 IMP CHEST TIGHTNESS ?CARDIAC ,? COPD ASHD S/P STENTS AFIB S/P PPM COPD OSAS CKD ANEMIA DM HTN MORBID OBESITY GOUT PLAN CE O2 INHALED BRONCHODILATORS CPAP AT NIGHT CARDIOLOGY EVAL MONITOR ALEX MCKEON Problem List - Problems (1) Chest pain Code(s): R07.9 - CHEST PAIN, UNSPECIFIED Qualifiers: Chest pain type: unspecified Qualified Code(s): R07.9 - Chest pain, unspecified (2) Chronic kidney disease (CKD) Code(s): N18.9 - CHRONIC KIDNEY DISEASE, UNSPECIFIED Qualifiers: Chronic kidney disease stage: stage 5, not on chronic dialysis Qualified Code(s): N18.5 - Chronic kidney disease, stage 5 (3) Anemia Code(s): D64.9 - ANEMIA, UNSPECIFIED Qualifiers: Anemia type: iron deficiency (4) Atrial fibrillation Code(s): I48.91 - UNSPECIFIED ATRIAL FIBRILLATION (5) Back pain Code(s): M54.9 - DORSALGIA, UNSPECIFIED (6) CHF (congestive heart failure) Code(s): I50.9 - HEART FAILURE, UNSPECIFIED Qualifiers: Congestive heart failure type: systolic Congestive heart failure chronicity: acute on chronic Qualified Code(s): I50.23 - Acute on chronic systolic (congestive) heart failure (7) HTN (hypertension) Code(s): I10 - ESSENTIAL (PRIMARY) HYPERTENSION (8) Lower extremity edema Code(s): R60.0 - LOCALIZED EDEMA (9) Obstructive lung disease Code(s): J44.9 - CHRONIC OBSTRUCTIVE PULMONARY DISEASE, UNSPECIFIED (10) Pacemaker Code(s): Z95.0 - PRESENCE OF CARDIAC PACEMAKER (11) S/P coronary artery stent placement Code(s): Z95.5 - PRESENCE OF CORONARY ANGIOPLASTY IMPLANT AND GRAFT (12) Sleep apnea Code(s): G47.30 - SLEEP APNEA, UNSPECIFIED
[2017-02-16] MEDS: INSULIN (NOVOLOG) ASPART 100 UNITS/ML 10ML VIAL SQ SCH ×3 (12:12→22:31)
[2017-02-16] MEDS: FEBUXOSTAT 80 MG TAB PO SCH (12:14)
[2017-02-16] MEDS: PANTOPRAZOLE 40 MG TABLET (FP) PO SCH (13:37)
[2017-02-16] MEDS: WARFARIN NA 2 MG TABLET (UD) PO SCH (17:54)
[2017-02-16] MEDS ORDERED: WARFARIN NA 2.5 MG TABLET (FP) PO SCH ×2 (18:00)
--- NOTE | 2017-02-16 19:34 | CONS ---
DATE OF CONSULTATION: 02/16/2017 REFERRING PHYSICIAN: Samson Reveles MD The patient is a 61-year-old white male known to me from previous hospitalizations as well as office followup, past medical history which includes hypertension, morbid obesity, obstructive sleep apnea, maintained on CPAP at 12, COPD, congestive heart failure, atrial fibrillation, ASHD, status post 4 stents, status post permanent pacemaker, hypertension, insulin-dependent diabetes mellitus, admitted to [facility] with complaint of chest tightness. Patient denied any cough or wheezing, denied any chest pain. He states that his pain is midsternal, nonradiating, not associated with exercise or increasing with movement. He denied any fevers or chills or increasing shortness of breath. He presented to the emergency room with the above. The patient has a history of tobacco use, quit approximately 12 or 13 years ago. There is no history of occupational exposure to chemicals or fumes. There is no history of DVT or PE in the past. He was hospitalized September of 2016 secondary to pneumonia. Past medical history again includes insulin-dependent diabetes mellitus, COPD, atrial fibrillation, morbid obesity, obstructive sleep apnea, hypertension, ASHD status post stent, status post permanent pacemaker. REVIEW OF SYSTEMS: No orthopnea, no PND. Positive chest tightness. No nausea, no vomiting. Positive back pain. No abdominal pain. Positive lower extremity edema. Current medications include insulin, prednisone, gabapentin, Uloric, Lidoderm patch, DuoNeb, Coreg, Lipitor, Lasix, Nitro-Bid, and pantoprazole. PHYSICAL EXAMINATION: General: The patient is a morbidly obese white male, well developed, awake, alert, in no acute distress. Vital Signs: He is currently afebrile. Blood pressure is 124/70. Respiratory rate 18. He is 342 pounds. O2 saturation is 97% on room air. HEENT: Normocephalic, atraumatic. Neck: Supple. Heart: Irregularly irregular. Normal, S1, S2. Chest: Diminished breath sounds bilaterally. Abdomen: Soft. Bowel sounds are positive. Extremities: Bilateral lower extremity edema, chronic stasis changes bilaterally. LABORATORIES: WBC 8.6, hemoglobin 10.6, hematocrit 31.8, with a platelet count of 151,000, INR is 2.52. BUN 80, creatinine 3.0. IMPRESSION: 1. Chest pain, chest tightness, etiology to be determined. Rule out possible cardiac. 2. Chronic obstructive pulmonary disease. 3. Arteriosclerotic heart disease, status post multiple stents. 4. Atrial fibrillation. 5. Acute on chronic kidney failure, kidney disease. 6. Morbid obesity. 7. Obstructive sleep apnea, on CPAP. 8. Insulin-dependent diabetes mellitus. PLAN: Cardiology evaluation, inhaled bronchodilators, supplemental O2, cardiac enzymes, CPAP at night. Strict I's and O's. Daily weights. ALEC MCKEON M.D. [id number]
[2017-02-16] MEDS: CARVEDILOL 12.5 MG TABLET (FP) PO SCH (21:26)
[2017-02-16] MEDS: ACETAMINOPHEN 325 MG TABLET (FP) PO PRN (21:27)
[2017-02-16] MEDS ORDERED: ATORVASTATIN CA 20 MG TABLET (FP) PO SCH (22:00)
[2017-02-16] MEDS ORDERED: GABAPENTIN 100 MG CAPSULE (FP) PO SCH (22:00)
--- NOTE | 2017-02-17 01:02 | CONSULT ---
Consult Consult Specialty:: endocrine Referred by:: dr.annabi zamarripa Reason for Consultation:: diabetes mellitus/thyroid nodule - History of Present Illness Chief Complaint: chest pain History of Present Illness: 61 y male dm,morbid obesity,htn,afib,chf,cad,pad cri,had chestpain since yesterday at rest,has had history copd and cough states pain mid sternal non radiating without relief admitted for possible angina symptoms,chest ct performed shows thyroid nodule right lobe 2 cm size - Past Medical History Cardio/Vascular: Yes: AFIB, CAD, HTN, Hyperlipdemia Pulmonary: Yes: COPD Renal/: Yes: Renal Inusuff, BPH, Other (Hyperuricemia) Musculoskeletal: Yes: Chronic low back pain, Osteoarthritis Rheumatology: Yes: Gout Endocrine: Yes: Diabetes Mellitus, Other (goiter) - Past Surgical History Past Surgical History: Yes: Permanent Pacemaker, Stent - Alcohol/Substance Use Hx Alcohol Use: No History of Substance Use: reports: None - Smoking History Smoking history: Former smoker Have you smoked in the past 12 months: No Aproximately how many cigarettes per day: 0 If you are a former smoker, when did you quit?: 2005 Home Medications - Allergies Allergies/Adverse Reactions: Allergies Allergy/AdvReac Type Severity Reaction Status Date / Time levofloxacin [From Levaquin] Allergy Intermediate EYE Verified 02/15/17 23:57 IRRITATION - Home Medications Home Medications: Ambulatory Orders Febuxostat [Uloric -] 80 mg PO DAILY #0 tab 03/10/12 Lidocaine 5% Patch [Lidoderm -] 1 patch TP DAILY #0 patch 03/10/12 Acetaminophen [Tylenol .Extra-Strength -] 1,000 mg PO Q6H PRN 11/26/13 Ergocalciferol (Vitamin D2) [Vitamin D] 50,000 unit PO WEEKLY 11/26/13 Esomeprazole Mag Trihydrate [Nexium] 40 mg PO DAILY 11/26/13 Insulin Regular, Human [Humulin R -] 2 units SQ ASDIR PRN 11/26/13 Gabapentin 100 mg PO HS 12/30/13 Insulin (Novolog 70/30) [Novolog Mix 70/30 Flexpen -] 15 units SQ BID 02/17/14 Atorvastatin Ca [Lipitor] 20 mg PO HS 06/17/15 Torsemide [Demadex -] 100 mg PO DAILY tablet 06/23/15 Iron Dextran Complex [Infed] 100 mg IJ ASDIR 10/04/15 Dulaglutide [Trulicity] 0.75 mg SQ WEEKLY 10/05/15 Carvedilol [Coreg -] 18.75 mg PO DAILY 09/24/16 Albuterol 2.5/Ipratropium 0.5 [Duoneb -] 1 amp NEB QIDR amp 09/27/16 Amox-Tr/K Cl [Augmentin 875-125mg Tablet -] 1 tab PO BID@0800,1730 #14 tablet Prednisone 10 mg PO DAILY #40 tablet 09/27/16 Warfarin Na [Coumadin -] 2.5 mg PO DAILY@1800 #30 tablet 09/27/16 Family Disease History - Family Disease History Family Disease History: Diabetes: Brother Review of Systems - Review of Systems Constitutional: reports: Lethargy, Loss of Appetite Eyes: reports: No Symptoms HENT: reports: Nasal Congestion Neck: reports: No Symptoms Cardiovascular: reports: Shortness of Breath Respiratory: reports: Cough, Exercise Intolerance, Orthopnea, PND, SOB on Exertion Gastrointestinal: reports: Bloating, Constipation Genitourinary: reports: No Symptoms Breasts: reports: No Symptoms Reported Musculoskeletal: reports: Decreased ROM, Extremity Pain, Joint Swelling, Muscle Pain, Muscle Cramps, Muscle Weakness Neurological: reports: Unsteady Gait, Weakness Endocrine: reports: Increased Hunger Hematology/Lymphatic: reports: No Symptoms Physical Exam Vital Signs: Vital Signs Temperature 98.0 F 02/16/17 17:00 Pulse Rate 72 02/16/17 17:00 Respiratory Rate 20 02/16/17 17:00 Blood Pressure 133/72 02/16/17 17:00 O2 Sat by Pulse Oximetry (%) 95 02/16/17 09:00 Constitutional: Yes: Anxious Eyes: Yes: EOM Intact HENT: Yes: Normocephalic Neck: Yes: Trachea Midline, Thyromegaly Cardiovascular: Yes: Pulse Irregular Respiratory: Yes: CTA Bilaterally, Tachypnea Gastrointestinal: Yes: Abdomen, Obese ...Rectal Exam: Yes: Deferred Renal/: Yes: WNL Musculoskeletal: Yes: WNL Extremities: Yes: WNL Integumentary: Yes: WNL Neurological: Yes: WNL, Alert, Oriented ...Motor Strength: WNL Labs: CBC, BMP 02/16/17 08:00 Problem List - Problems (1) Chest pain Code(s): R07.9 - CHEST PAIN, UNSPECIFIED Qualifiers: Chest pain type: unspecified Qualified Code(s): R07.9 - Chest pain, unspecified (2) Chronic kidney disease (CKD) Code(s): N18.9 - CHRONIC KIDNEY DISEASE, UNSPECIFIED Qualifiers: Chronic kidney disease stage: stage 5, not on chronic dialysis Qualified Code(s): N18.5 - Chronic kidney disease, stage 5 (3) Cough Code(s): R05 - COUGH (4) Acute on chronic renal failure Code(s): N17.9 - ACUTE KIDNEY FAILURE, UNSPECIFIED N18.9 - CHRONIC KIDNEY DISEASE, UNSPECIFIED (5) Atrial fibrillation Code(s): I48.91 - UNSPECIFIED ATRIAL FIBRILLATION (6) Thyroid nodule Code(s): E04.1 - NONTOXIC SINGLE THYROID NODULE Assessment/Plan Current Active Problems Chest pain (Acute) Chronic kidney disease (CKD) (Acute) Cough (Acute) Systolic CHF, acute on chronic (Acute) thyroid nodule diabetes mellitus hyperglycemia diabetic nephropathy Abnormal Lab Results 02/16/17 02/16/17 02/16/17 00:30 02:45 08:00 BUN 81 H D 80 H Creatinine 3.2 H D 3.0 H Random Glucose 152 H D AST 12 L D B-Natriuretic Peptide 3669.60 H Laboratory Results - last 24 hr 02/16/17 02/16/17 02/16/17 00:30 02:45 05:45 Sodium 141 Potassium 4.0 Chloride 104 Carbon Dioxide 28 Anion Gap 9 BUN 81 H D Creatinine 3.2 H D Creat Clearance w eGFR 19.85 POC Glucometer 137 Random Glucose 103 Calcium 8.6 Magnesium 2.1 Total Bilirubin 0.3 D AST 12 L D ALT 19 D Alkaline Phosphatase 83 Creatine Kinase 197 183 Creatine Kinase Index 0.9 1.1 CK-MB (CK-2) 1.875 2.014 Troponin I 0.02 0.02 B-Natriuretic Peptide 3669.60 H Total Protein 7.1 Albumin 3.5 02/16/17 02/16/17 02/16/17 08:00 12:10 16:56 Sodium 141 Potassium 3.7 Chloride 104 Carbon Dioxide 25 Anion Gap 12 BUN 80 H Creatinine 3.0 H Creat Clearance w eGFR POC Glucometer 162 244 Random Glucose 152 H D Calcium 8.5 Magnesium Total Bilirubin AST ALT Alkaline Phosphatase Creatine Kinase 180 Creatine Kinase Index 1.1 CK-MB (CK-2) 2.083 Troponin I 0.02 B-Natriuretic Peptide Total Protein Albumin 02/16/17 22:26 Sodium Potassium Chloride Carbon Dioxide Anion Gap BUN Creatinine Creat Clearance w eGFR POC Glucometer 151 Random Glucose Calcium Magnesium Total Bilirubin AST ALT Alkaline Phosphatase Creatine Kinase Creatine Kinase Index CK-MB (CK-2) Troponin I B-Natriuretic Peptide Total Protein Albumin plan: check tsh free t4,a2edqqd thyroglobulin abs once cardiac workup finished will get thyroid sonogram as outpatient and fna
[2017-02-17] MEDS: NITROGLYCERIN 2% OINTMENT - 1GM PACKET TD SCH ×4 (01:40→17:43)
[2017-02-17] MEDS: INSULIN (NOVOLOG) ASPART 100 UNITS/ML 10ML VIAL SQ SCH ×3 (06:02→17:55)
[2017-02-17] MEDS: PATIENT'S OWN MEDICATION (NON-FORMULARY) (Insulin (Novolog 70/30) [Novolog Mix 70/30 Flexp SQ SCH ×2 (06:02→17:56)
[2017-02-17] MEDS: ACETAMINOPHEN 325 MG TABLET (FP) PO PRN (06:03)
[2017-02-17] MEDS: ALBUTEROL SO4 2.5/IPRATROPIUM 0.5 INH SOL 3 ML VIAL.NEB. NEB SCH ×3 (06:38→18:19)
[2017-02-17 07:30] LABS: BASOPHIL 0.5 % (0-2.0); EOSINOPHIL 1.5 % (0-4.5); MCH 28.5 pg (25.7-33.7); MCHC 33.1 g/dl (32.0-35.9); MEAN PLT VOLUME 9.2 fl (7.5-11.1); NEUTROPHILS 78.8 % (42.8-82.8); PLATELET COUNT 135 K/MM3 (134-434); WHITE BLOOD COUNT 8.1 K/mm3 (4.0-10.0)
[2017-02-17 08:23] LABS: ALBUMIN 3.2 g/dl (3.4-5.0); ALK PHOS 80 U/L (45-117); ANION GAP 7 (8-16); BILIRUBIN,TOTAL 0.5 mg/dL (0.2-1.0); CALCIUM 8.6 mg/dL (8.5-10.1); CO2 27 mmol/L (21-32); CREATININE 2.7 mg/dL (0.7-1.3); GLUCOSE,RANDOM 135 mg/dL (74-106); SGOT/AST 11 U/L (15-37); SGPT/ALT 18 U/L (12-78); THYROID STIMULATING HORMONE 1.78 uIU/ml (0.358-3.74); TOT PROT 6.9 g/dl (6.4-8.2)
--- NOTE | 2017-02-17 08:56 | PN ---
Progress Note, Physician History of Present Illness: BACK PAIN--UPPER WHEN LAYING DOWN NO SOB - Current Medication List Current Medications: Active Medications Acetaminophen (Tylenol -) 650 mg PO Q6H PRN PRN Reason: PAIN Last Admin: 02/17/17 06:03 Dose: 650 mg Albuterol/Ipratropium (Duoneb -) 1 amp NEB QIDR [facility] Last Admin: 02/17/17 06:38 Dose: 1 amp Atorvastatin Calcium (Lipitor -) 20 mg PO [facility] Last Admin: 02/16/17 21:27 Dose: 20 mg Carvedilol (Coreg -) 18.75 mg PO BID [facility] Last Admin: 02/16/17 21:26 Dose: 18.75 mg Febuxostat (Uloric -) 80 mg PO DAILY [facility] Last Admin: 02/16/17 12:14 Dose: 80 mg Furosemide (Lasix Injection -) 40 mg IVPUSH BID@0600,1400 [facility] Last Admin: 02/16/17 06:45 Dose: 40 mg Gabapentin (Neurontin -) 100 mg PO [facility] Last Admin: 02/16/17 21:27 Dose: 100 mg Insulin Aspart (Novolog Vial) 0 units SQ ACHS [facility] PRN Reason: Protocol Last Admin: 02/17/17 06:02 Dose: Not Given Lidocaine (Lidoderm Patch -) 1 patch TP DAILY [facility] Last Admin: 02/16/17 10:33 Dose: 1 patch Nitroglycerin (Nitro-Bid 2% Paste -) 0.5 inch TD Q6HPO [facility] Last Admin: 02/17/17 06:10 Dose: 0.5 inch Non-Formulary Medication (Insulin (Novolog 70/30) [Novolog Mix 70/30 Flexpen -] ) 15 units SQ BIDI [facility] Last Admin: 02/17/17 06:02 Dose: Not Given Oxycodone HCl (Roxicodone -) 10 mg PO ONCE ONE Stop: 02/17/17 09:01 Pantoprazole Sodium (Protonix -) 40 mg PO DAILY [facility] Last Admin: 02/16/17 13:37 Dose: 40 mg Prednisone (Deltasone -) 10 mg PO DAILY [facility] Last Admin: 02/16/17 10:32 Dose: 10 mg Warfarin Sodium (Coumadin -) 4 mg PO SuMoWeThFrSa@1800 [facility] Last Admin: 02/16/17 17:54 Dose: 4 mg Warfarin Sodium (Coumadin -) 6 mg PO Tu@1800 [facility] - Objective Vital Signs: Vital Signs Temperature 98.2 F 02/17/17 05:00 Pulse Rate 74 02/17/17 05:00 Respiratory Rate 20 02/17/17 05:00 Blood Pressure 115/66 02/17/17 05:00 O2 Sat by Pulse Oximetry (%) 95 02/16/17 09:00 Cardiovascular: Yes: S1, S2 Respiratory: Yes: Regular, CTA Bilaterally Gastrointestinal: Yes: Normal Bowel Sounds, Soft Labs: CBC, BMP 02/17/17 05:35 02/17/17 05:35 INR, PTT INR 2.52 (0.82-1.09) H 02/16/17 00:30 Problem List - Problems (1) Chest pain Assessment/Plan: Laboratory Tests 02/16/17 02/16/17 02/16/17 00:30 02:45 08:00 Creatine Kinase 197 180 Troponin I 0.02 0.02 0.02 atypical--r/o cardiac etiology--review testing from dr tripp office ct of chest noted and discussed with pt stress test Code(s): R07.9 - CHEST PAIN, UNSPECIFIED Qualifiers: Chest pain type: unspecified Qualified Code(s): R07.9 - Chest pain, unspecified (2) Chronic kidney disease (CKD) Assessment/Plan: Laboratory Tests 07/03/16 09/24/16 09/27/16 11:00 06:00 06:50 Creatinine 3.3 H 3.4 H D 2.8 H 02/16/17 02/16/17 00:30 08:00 Creatinine 3.2 H D 3.0 H at baseline Laboratory Tests 02/17/17 05:35 Creatinine 2.7 H monitor follows up with dr young Code(s): N18.9 - CHRONIC KIDNEY DISEASE, UNSPECIFIED Qualifiers: Chronic kidney disease stage: stage 5, not on chronic dialysis Qualified Code(s): N18.5 - Chronic kidney disease, stage 5 (3) Atrial fibrillation Assessment/Plan: INR, PTT INR 2.52 (0.82-1.09) H 02/16/17 00:30 same coumadin Code(s): I48.91 - UNSPECIFIED ATRIAL FIBRILLATION (4) Back pain Assessment/Plan: ct of thoracic spine--noted--disc ds pt Code(s): M54.9 - DORSALGIA, UNSPECIFIED (5) CHF (congestive heart failure) Assessment/Plan: no evidence of failure continue with diuretics Code(s): I50.9 - HEART FAILURE, UNSPECIFIED Qualifiers: Congestive heart failure type: systolic Congestive heart failure chronicity: acute on chronic Qualified Code(s): I50.23 - Acute on chronic systolic (congestive) heart failure
[2017-02-17] MEDS ORDERED: oxyCODONE HCL 5 MG TABLET PO ONE (09:00)
[2017-02-17] MEDS ORDERED: TORSEMIDE 100 MG TABLET PO SCH (10:00)
[2017-02-17] MEDS ORDERED: DIPYRIDAMOLE STRESS TEST 50 MG in DEXTROSE 5%-WATER - 40 ML IVPB ONE (10:30)
--- NOTE | 2017-02-17 11:52 | PN ---
Progress Note (short form) - Note Progress Note: (+) positional upper back pain. No SOB or CP. No acute events overnight. Intake & Output 02/14/17 02/15/17 02/16/17 02/17/17 23:59 23:59 23:59 23:59 Intake Total 750 Output Total 300 800 Balance 450 -800 Weight 337 lb 342 lb 2 oz 340 lb 3.2 oz Last Vital Signs Temp Pulse Resp BP Pulse Ox 98.2 F 74 20 115/66 95 02/17/17 05:00 02/17/17 05:00 02/17/17 05:00 02/17/17 05:00 02/16/17 09:00 Active Medications Acetaminophen (Tylenol -) 650 mg PO Q6H PRN PRN Reason: PAIN Last Admin: 02/17/17 06:03 Dose: 650 mg Albuterol/Ipratropium (Duoneb -) 1 amp NEB QIDR [facility] Last Admin: 02/17/17 11:27 Dose: Not Given Atorvastatin Calcium (Lipitor -) 20 mg PO HS [facility] Last Admin: 02/16/17 21:27 Dose: 20 mg Carvedilol (Coreg -) 18.75 mg PO BID [facility] Last Admin: 02/16/17 21:26 Dose: 18.75 mg Febuxostat (Uloric -) 80 mg PO DAILY [facility] Last Admin: 02/16/17 12:14 Dose: 80 mg Gabapentin (Neurontin -) 100 mg PO HS [facility] Last Admin: 02/16/17 21:27 Dose: 100 mg Insulin Aspart (Novolog Vial) 0 units SQ ACHS [facility] PRN Reason: Protocol Last Admin: 02/17/17 06:02 Dose: Not Given Lidocaine (Lidoderm Patch -) 1 patch TP DAILY [facility] Last Admin: 02/16/17 10:33 Dose: 1 patch Nitroglycerin (Nitro-Bid 2% Paste -) 0.5 inch TD Q6HPO [facility] Last Admin: 02/17/17 06:10 Dose: 0.5 inch Non-Formulary Medication (Insulin (Novolog 70/30) [Novolog Mix 70/30 Flexpen -] ) 15 units SQ BIDI [facility] Last Admin: 02/17/17 06:02 Dose: Not Given Pantoprazole Sodium (Protonix -) 40 mg PO DAILY [facility] Last Admin: 02/16/17 13:37 Dose: 40 mg Prednisone (Deltasone -) 10 mg PO DAILY [facility] Last Admin: 02/16/17 10:32 Dose: 10 mg Torsemide (Demadex -) 100 mg PO DAILY [facility] Warfarin Sodium (Coumadin -) 4 mg PO SuMoWeThFrSa@1800 [facility] Last Admin: 02/16/17 17:54 Dose: 4 mg Warfarin Sodium (Coumadin -) 6 mg PO Tu@1800 [facility] General: NAD Cardiovascular: Yes: S1, S2 Respiratory: Yes: Diminished at the bases, clear Gastrointestinal: Yes: Normal Bowel Sounds, Soft, obese Labs: Laboratory Results - last 24 hr 02/16/17 02/16/17 02/16/17 12:10 16:56 22:26 WBC RBC Hgb Hct MCV MCH MCHC RDW Plt Count MPV Neutrophils % Lymphocytes % Monocytes % Eosinophils % Basophils % Sodium Potassium Chloride Carbon Dioxide Anion Gap BUN Creatinine Creat Clearance w eGFR POC Glucometer 162 244 151 Random Glucose Calcium Total Bilirubin AST ALT Alkaline Phosphatase Total Protein Albumin TSH 02/17/17 02/17/17 02/17/17 05:35 05:35 05:56 WBC 8.1 RBC 3.49 L Hgb 9.9 L Hct 30.0 L MCV 86.0 MCH 28.5 MCHC 33.1 RDW 15.0 Plt Count 135 MPV 9.2 Neutrophils % 78.8 Lymphocytes % 8.2 D Monocytes % 11.0 H Eosinophils % 1.5 Basophils % 0.5 Sodium 139 Potassium 3.7 Chloride 105 Carbon Dioxide 27 Anion Gap 7 L BUN 78 H Creatinine 2.7 H Creat Clearance w eGFR 24.14 POC Glucometer 136 Random Glucose 135 H Calcium 8.6 Total Bilirubin 0.5 D AST 11 L ALT 18 Alkaline Phosphatase 80 Total Protein 6.9 Albumin 3.2 L TSH 1.78 D (1) Chest pain Code(s): R07.9 - CHEST PAIN, UNSPECIFIED Qualifiers: Chest pain type: unspecified Qualified Code(s): R07.9 - Chest pain, unspecified (2) Chronic kidney disease (CKD) Code(s): N18.9 - CHRONIC KIDNEY DISEASE, UNSPECIFIED Qualifiers: Chronic kidney disease stage: stage 5, not on chronic dialysis Qualified Code(s): N18.5 - Chronic kidney disease, stage 5 (3) Anemia Code(s): D64.9 - ANEMIA, UNSPECIFIED Qualifiers: Anemia type: iron deficiency (4) Atrial fibrillation Code(s): I48.91 - UNSPECIFIED ATRIAL FIBRILLATION (5) Back pain Code(s): M54.9 - DORSALGIA, UNSPECIFIED (6) CHF (congestive heart failure) Code(s): I50.9 - HEART FAILURE, UNSPECIFIED Qualifiers: Congestive heart failure type: systolic Congestive heart failure chronicity: acute on chronic Qualified Code(s): I50.23 - Acute on chronic systolic (congestive) heart failure (7) HTN (hypertension) Code(s): I10 - ESSENTIAL (PRIMARY) HYPERTENSION (8) Lower extremity edema Code(s): R60.0 - LOCALIZED EDEMA (9) Obstructive lung disease Code(s): J44.9 - CHRONIC OBSTRUCTIVE PULMONARY DISEASE, UNSPECIFIED (10) Pacemaker Code(s): Z95.0 - PRESENCE OF CARDIAC PACEMAKER (11) S/P coronary artery stent placement Code(s): Z95.5 - PRESENCE OF CORONARY ANGIOPLASTY IMPLANT AND GRAFT (12) Sleep apnea Code(s): G47.30 - SLEEP APNEA, UNSPECIFIED PLAN: Cardiac work up as ordered O2 as needed CPAP No need to follow nodules on CT : granulomas and non-specific [address] Mccollum
[2017-02-17] MEDS ORDERED: PT OWN MED DRAWER 7, Y5N ONE (12:44)
[2017-02-17] MEDS: CARVEDILOL 12.5 MG TABLET (FP) PO SCH (12:59)
[2017-02-17] MEDS: predniSONE 10 MG TABLET (UD) PO SCH (12:59)
[2017-02-17] MEDS: PANTOPRAZOLE 40 MG TABLET (FP) PO SCH (13:00)
[2017-02-17] MEDS: FEBUXOSTAT 80 MG TAB PO SCH (13:00)
[2017-02-17] MEDS: LIDOCAINE 5% TOPICAL PATCH TP SCH (13:00)
--- NOTE | 2017-02-17 14:34 | PN ---
Progress Note (short form) - Note Progress Note: s: cp better, mostly bothered by MSK back/arm pain now. no sob, palps, dizzy o: Vital Signs Period Temp Pulse Resp BP Sys/Olsen Pulse Ox Last 24 Hr 97.2 F-98.9 F 71-74 20-78 115-143/65-84 NAD, calm JVD flat, neck supple cta bl, nl effort RRR nl S1, s2 no m/r/g trace edema with venous stasis changes aaox3 no jaundice diaphoresis abd nt nd pos bs Current Medications Generic Name Dose Route Start Last Admin Trade Name Freq PRN Reason Stop Dose Admin Acetaminophen 650 mg 02/16/17 21:02 02/17/17 06:03 Tylenol - PO 650 mg Q6H PRN Administration PAIN Albuterol/Ipratropium 1 amp 02/16/17 06:00 02/17/17 11:27 Duoneb - NEB Not Given QIDR MELISSA Atorvastatin Calcium 20 mg 02/16/17 22:00 02/16/17 21:27 Lipitor - PO 20 mg HS MELISSA Administration Carvedilol 18.75 mg 02/16/17 12:00 02/17/17 12:59 Coreg - PO 18.75 mg BID MELISSA Administration Febuxostat 80 mg 02/16/17 10:00 02/17/17 13:00 Uloric - PO 80 mg DAILY MELISSA Administration Gabapentin 100 mg 02/16/17 22:00 02/16/17 21:27 Neurontin - PO 100 mg HS MELISSA Administration Insulin Aspart 0 units 02/16/17 11:00 02/17/17 13:11 Novolog Vial SQ Not Given ACHS [facility] Protocol Lidocaine 1 patch 02/16/17 10:00 02/17/17 13:00 Lidoderm Patch - TP 1 patch DAILY [facility] Administration Nitroglycerin 0.5 inch 02/16/17 06:00 02/17/17 13:02 Nitro-Bid 2% Paste - TD 0.5 inch Q6HPO MELISSA Administration Non-Formulary Medication 15 units 02/16/17 07:00 02/17/17 06:02 Insulin (Novolog 70/30) [Novolog Mix 70/30 Flexpen -] SQ Not Given BIDI MELISSA Pantoprazole Sodium 40 mg 02/16/17 13:15 02/17/17 13:00 Protonix - PO 40 mg DAILY [facility] Administration Prednisone 10 mg 02/16/17 10:00 02/17/17 12:59 Deltasone - PO 10 mg DAILY [facility] Administration Torsemide 100 mg 02/17/17 10:00 02/17/17 13:00 Demadex - PO 100 mg DAILY [facility] Administration Warfarin Sodium 4 mg 02/16/17 18:00 02/16/17 17:54 Coumadin - PO 4 mg SuMoWeThFrSa@1800 [facility] Administration Warfarin Sodium 6 mg 02/22/17 18:00 Coumadin - PO Tu@1800 MELISSA CBC, BMP 02/17/17 05:35 02/17/17 05:35 CXR: no infiltrate or evidence of failure Echo 10/19 ([facility]): nl LV size with mild-mod global HK (EF 45%); mild MR RHC 10/19: wedge 25, PA 50/20; CI 2.7-->nitroprusside: wedge 10, PA 25/15; CI 2.4 cath 02/2014: mLAD ESTER for ISR, patent stents in mRCA, pLAD, PLCx, OM1, residual ISR 50-60% OM2 stent mibi 02/2017: moderate size infarct of septal/inferoseptal/inferior wall from apex to mid with mild janak-infarct ischemia. global hk, lvef 35% ecg 02/15/17: sr, vpaced tele: sr, as-v paced a/p: 61 year old with h/o ischemic cardiomyopathy, CAD s/p multiple PCI's, most recent 02/2014, afib, SSS s/p pacemaker, diabetes, chronic kidney disease, asthma , jose on nivppv at home, morbid obesity who p/w cp. chest pain: -different than prior symptoms that led to pci, pt thinks it is related to pulled muscle from his back pain -ce's neg x3, ecg with vpacing -mibi here low risk study, no significant ischemia. continue with home cad meds. Ischemic cardiomyopathy, acute on chronic syst chf - dry wt runs 332-338, slightly higher here - after a few doses of iv lasix pt appears euvolemic. cont home po torsemide as doing. - con't coreg - no NAKUL due to ckd parox Afib: - previous DCCV yrs ago, maintained on multaq for rhythm control - multaq stopped 2015 by EP at [facility] due to worsening creatinine (improved to 2.5 range from 3 at that time) - no AF noted since - cont BB as doing - On AC with coumadin per INR SSS s/p biotronik PPM - nl fcn on ecg/tele here. cont with routine office checks. CAD - as above - s/p multiple PCI's, most recent 02/2014 --mLAD ESTER PCI for ISR--stable, minimal residual, - not on anti-platelet due to h/o gib and pt on coumadin - not on NAKUL due to fluctuating creatinines HTN - cont home meds HL - on atorvastatin, cont same CKD: - baseline creat since chf optimized and multaq d/c'd has been 2.6-3.2 (on longstanding torsemide 100 qd regimen at home) - renal fxn stable here cardiac clemente stable for dc
[2017-02-17 17:18] LABS: INR 2.93 (0.82-1.09)
[2017-02-17] MEDS ORDERED: INSULIN (NOVOLOG MIX 70/30) 100 UNITS/ML MDV SQ ONE (17:52)
[2017-02-17] MEDS ORDERED: INSULIN (NOVOLOG) ASPART 100 UNITS/ML 10ML VIAL ONE (17:59)
[2017-02-17] MEDS ORDERED: INSULIN (NOVOLOG MIX 70/30) 100 UNITS/ML MDV SQ SCH (18:00)
[2017-02-17] MEDS: WARFARIN NA 2 MG TABLET (UD) PO SCH (19:03)
[2017-02-17 19:20] VITALS: BP 146/57; PULSE 76; TEMP 98.5
[2017-02-22] MEDS ORDERED: WARFARIN NA 2 MG TABLET (UD) PO SCH (18:00)
== END 2017-02-17 19:50 | disposition home or self-care (01) | DRG 291 ==
LOC: JER 23:40 → JERBED 02-16 01:34 → UNDOADMIN 02-16 02:18 → J4W 02-16 03:27 → UNDODISIN 02-17 19:01
PROVIDERS: ADMIT Family Medicine; ATTEND Family Medicine
DX: I13.0 Hypertensive heart and chronic kidney disease with heart failure and stage 1 through stage 4 chronic kidney disease, or unspecified chronic kidney disease (principal); I50.23 Acute on chronic systolic (congestive) heart failure; N18.5 Chronic kidney disease, stage 5; E11.21 Type 2 diabetes mellitus with diabetic nephropathy; Z68.43 Body mass index [BMI] 50.0-59.9, adult; E11.22 Type 2 diabetes mellitus with diabetic chronic kidney disease; I48.0 Paroxysmal atrial fibrillation; I12.9 Hypertensive chronic kidney disease with stage 1 through stage 4 chronic kidney disease, or unspecified chronic kidney disease; J44.9 Chronic obstructive pulmonary disease, unspecified; Z95.5 Presence of coronary angioplasty implant and graft; Z95.0 Presence of cardiac pacemaker; G47.33 Obstructive sleep apnea (adult) (pediatric); Z87.891 Personal history of nicotine dependence; E66.01 Morbid (severe) obesity due to excess calories; I25.10 Atherosclerotic heart disease of native coronary artery without angina pectoris; N40.0 Benign prostatic hyperplasia without lower urinary tract symptoms; M10.9 Gout, unspecified; Z79.4 Long term (current) use of insulin; I25.5 Ischemic cardiomyopathy; E78.5 Hyperlipidemia, unspecified; I73.9 Peripheral vascular disease, unspecified; E04.1 Nontoxic single thyroid nodule; E11.65 Type 2 diabetes mellitus with hyperglycemia; R07.89 Other chest pain
CPT/HCPCS: 36415; 71010-TC; 71250-TC; 72128-TC; 76536-TC; 78452-TC; 80048; 80053; 82553; 83735; 83880; 84443; 84480; 84484; 85025; 85610; 86800; 93005; 93010; 93017; 94640; 94660; 99285-25; A9502

== ENCOUNTER 2017-02-25 16:35 | Inpatient (IN) | payer BC, OTHER ==
--- NOTE | 2017-02-25 17:54 | PDOC ---
Attending Attestation - HPI HPI: 02/25/17 17:58 61 yr old male, significant pmhx of Afib s/p stents and pacemaker placement, HTN , IDDM, COPD, anemia, and CKD, recently admitted to observation on 02/15/17 for chest pain, who presents today complaining of cough and weakness since being discharged from the hospital. He states that his chest feels congested and coughs every time he takes a deep breath. Denies fever, chills, nausea, vomiting. - Physicial Exam PE: 02/25/17 17:59 GENERAL: Awake, alert, and fully oriented, in no acute distress. Morbidly obese. HEAD: No signs of trauma EYES: PERRLA, EOMI, sclera anicteric, conjunctiva clear ENT: Auricles normal inspection, hearing grossly normal, nares patent, oropharynx clear without exudates. Moist mucosa NECK: Normal ROM, supple, no lymphadenopathy, JVD, or masses LUNGS: +lung sounds distant due to body habitus. +Scattered crackles. +Good air entry. Intermittent dry cough. Able to speak in full sentences. HEART: Regular rate and rhythm, normal S1 and S2, no murmurs, rubs or gallops ABDOMEN: Soft, nontender, normoactive bowel sounds. No guarding, no rebound. No masses EXTREMITIES: 4+ pitting edema bilateral lower extremities. +Chronic stasis changes to the feet and ankles bilaterally. Normal range of motion. No clubbing or cyanosis. No cords, erythema, or tenderness NEUROLOGICAL: Cranial nerves II through XII grossly intact. Normal speech, normal gait SKIN: Warm, Dry, normal turgor, no rashes or lesions noted. <Madelaine Jones - Last Filed: 02/25/17 17:58> - Resident Resident Name: Shola Edwards - ED Attending Attestation I have performed the following: I have examined & evaluated the patient, The case was reviewed & discussed with the resident, I agree w/resident's findings & plan, Exceptions are as noted - Medical Decision Making Patient with history CAD, CHF recently admitted for cardiac workup. Stated he felt ill since his stress test, room was very cold and his breathing has been heavier since the test. Also with cough. Suspect possible pna vs CHF. CXR inadequate. Endorsed to Dr. Mercedes at 7pm shift change. Will obtain CT chest to r/o pna. If neg, consider giving lasix and DC home. <Meka Cordova - Last Filed: 02/26/17 17:28>
[2017-02-25 18:09] LABS: BASOPHIL 0.6 % (0-2.0); EOSINOPHIL 0.8 % (0-4.5); MCH 28.4 pg (25.7-33.7); MCHC 32.8 g/dl (32.0-35.9); MEAN CELL VOLUME 86.6 fl (80-96); NEUTROPHILS 80.6 % (42.8-82.8); PLATELET COUNT 226 K/MM3 (134-434); RDW 15.1 % (11.9-15.9); WHITE BLOOD COUNT 8.7 K/mm3 (4.0-10.0)
--- NOTE | 2017-02-25 18:18 | PDOC ---
History of Present Illness - General Chief Complaint: Weakness Stated Complaint: CHEST PAIN Time Seen by Provider: 02/25/17 17:02 History Source: Patient Exam Limitations: No Limitations - History of Present Illness Initial Comments: 02/25/17 18:00 The patient is a 61M with a PMH of HTN, IDDM, COPD, a-fib, s/p stents and pacemaker in 02/2014 who presents to the ED with difficulty breathing and SOB. The patient was recently discharged from [facility] after a workup for ACS which was negative. The patient states that since he was not feeling back to normal when he was discharged. Since he was discharged, he has been complaining of a productive cough. He also states that he has difficulty breathing. He states that Dr. Mcguire, nephrology, told him to come to the ER. PCP is Dr. Alberts. Past History - Past Medical History Allergies/Adverse Reactions: Allergies Allergy/AdvReac Type Severity Reaction Status Date / Time levofloxacin [From Levaquin] Allergy Intermediate EYE Verified 02/25/17 16:52 IRRITATION Home Medications: Ambulatory Orders Febuxostat [Uloric -] 80 mg PO DAILY #0 tab 03/10/12 Lidocaine 5% Patch [Lidoderm -] 1 patch TP DAILY #0 patch 03/10/12 Acetaminophen [Tylenol .Extra-Strength -] 1,000 mg PO Q6H PRN 11/26/13 Ergocalciferol (Vitamin D2) [Vitamin D] 50,000 unit PO WEEKLY 11/26/13 Esomeprazole Mag Trihydrate [Nexium] 40 mg PO DAILY 11/26/13 Insulin Regular, Human [Humulin R -] 2 units SQ ASDIR PRN 11/26/13 Gabapentin 100 mg PO HS 12/30/13 Insulin (Novolog 70/30) [Novolog Mix 70/30 Flexpen -] 15 units SQ BID 02/17/14 Atorvastatin Ca [Lipitor] 20 mg PO HS 06/17/15 Torsemide [Demadex -] 100 mg PO DAILY tablet 06/23/15 Iron Dextran Complex [Infed] 100 mg IJ ASDIR 10/04/15 Dulaglutide [Trulicity] 0.75 mg SQ WEEKLY 10/05/15 Carvedilol [Coreg -] 18.75 mg PO DAILY 09/24/16 Albuterol 2.5/Ipratropium 0.5 [Duoneb -] 1 amp NEB QIDR amp 09/27/16 Amox-Tr/K Cl [Augmentin 875-125mg Tablet -] 1 tab PO BID@0800,1730 #14 tablet Prednisone 10 mg PO DAILY #40 tablet 09/27/16 Warfarin Na [Coumadin -] 2.5 mg PO DAILY@1800 #30 tablet 09/27/16 Anemia: Yes Asthma: No Cancer: No Cardiac Disorders: Yes (Afib/stents, PPM; STENT 02/21/2014) CVA: No COPD: Yes (sleep apnea) CHF: Yes Dementia: No Diabetes: Yes GI Disorders: No Disorders: No HTN: Yes Hypercholesterolemia: Yes Liver Disease: No Seizures: No Thyroid Disease: No - Surgical History Abdominal Surgery: No Appendectomy: No Cardiac Surgery: Yes (STENT INSERTION, pace maker) Cholecystectomy: No Lung Surgery: No Neurologic Surgery: No Orthopedic Surgery: No - Immunization History Td Vaccination: Yes TDAP Vaccination: Yes Immunization Up to Date: Yes - Suicide/Smoking/Psychosocial Hx Smoking Status: No Smoking History: Former smoker Have you smoked in the past 12 months: No Number of Cigarettes Smoked Daily: 0 If you are a former smoker, when did you quit?: 2005 Information on smoking cessation initiated: No 'Breaking Loose' booklet given: 03/09/12 Hx Alcohol Use: No Drug/Substance Use Hx: No Substance Use Type: None Hx Substance Use Treatment: No Review of Systems - Review of Systems Able to Perform ROS?: Yes Is the patient limited Thai proficient: No Constitutional: Yes: Chills, Loss of Appetite, Weakness. No: Fever Respiratory: Yes: Cough, Shortness of Breath, Productive cough Cardiac (ROS): Yes: Chest Pain. No: Irregular Heart Rate, Palpitations, Syncope , Chest Tightness ABD/GI: No: Constipated, Diarrhea, Nausea, Indigestion : No: Burning, Dysuria, Discharge Neurological: No: Headache, Numbness, Tingling, Weakness *Physical Exam - Vital Signs Last Vital Signs Temp Pulse Resp BP Pulse Ox 98.4 F 69 20 118/69 96 02/25/17 16:48 02/25/17 16:48 02/25/17 16:48 02/25/17 16:48 02/25/17 16:48 - Physical Exam General Appearance: Yes: Nourished, Appropriately Dressed, Obese. No: Apparent Distress HEENT: positive: Normal Voice, Hearing Grossly Normal. negative: Tonsillar Exudate, Tonsillar Erythema Neck: negative: Lymphadenopathy (R), Lymphadenopathy (L) Respiratory/Chest: positive: Crackles (faint crackles in lower lung ventura b/l) . negative: Chest Tender, Lungs Clear, Normal Breath Sounds, Rales, Rhonchi Cardiovascular: positive: Regular Rhythm, Regular Rate, S1, S2. negative: Diastolic Murmur, Systolic Murmur Gastrointestinal/Abdominal: positive: Flat, Soft, Protuberent. negative: Tender , Distended, Guarding, Rebound, Tenderness Integumentary: positive: Dry, Warm, Swelling (chronic 3+) Neurologic: positive: Fully Oriented, Alert, Normal Mood/Affect, Normal Response , Motor Strength 5/5, Responsive. negative: Facial Droop ED Treatment Course - LABORATORY CBC & Chemistry Diagram: 02/26/17 11:05 02/26/17 10:13 - RADIOLOGY Radiology Studies Ordered: Category Date Time Status CHEST X-RAY PORTABLE* [RAD] Stat Radiology 02/25/17 17:41 Taken Medical Decision Making - Medical Decision Making 02/25/17 18:21 The patient is a 61M with a PMH of HTN, COPD, DM, s/p stents and PM 02/2014 who presents to the ED with a productive cough since his discharge on 02/17. COPD exacerbation, PE, ACS, pericarditis are all on the differential. Labs and imaging have been ordered. Will reassess when they return. 02/25/17 19:07 Patient signed out to night team. *DC/Admit/Observation/Transfer Diagnosis at time of Disposition: CHF exacerbation, Systolic CHF, acute on chronic, HTN (hypertension) - Discharge Dispostion Condition at time of disposition: Unchanged/Unknown
[2017-02-25 18:29] LABS: INR 3.94 (0.82-1.09); PROTHROMBIN TIME (PATIENT) 44.6 SEC (9.98-11.88)
[2017-02-25 18:31] LABS: ACTIVATED PTT 43.4 SECONDS (26.9-34.4)
[2017-02-25 18:40] LABS: ALBUMIN 2.6 g/dl (3.4-5.0); ANION GAP 10 (8-16); BILIRUBIN,TOTAL 0.5 mg/dL (0.2-1.0); CALCIUM 8.4 mg/dL (8.5-10.1); CO2 23 mmol/L (21-32); CREATININE 4.4 mg/dL (0.7-1.3); GLUCOSE,RANDOM 211 mg/dL (74-106); SGOT/AST 15 U/L (15-37); SGPT/ALT 25 U/L (12-78); TOT PROT 6.6 g/dl (6.4-8.2)
[2017-02-25 18:43] LABS: ALK PHOS 233 U/L (45-117); CPK 111 IU/L (39-308); TROPONIN I < 0.02 ng/ml (0.00-0.05)
--- NOTE | 2017-02-25 19:59 | PDOC ---
*Physical Exam - Vital Signs Last Vital Signs Temp Pulse Resp BP Pulse Ox 98.4 F 69 20 118/69 96 02/25/17 16:48 02/25/17 16:48 02/25/17 16:48 02/25/17 16:48 02/25/17 16:48 - Physical Exam Comments: 02/25/17 20:55 GENERAL: +Obese. Awake, alert, and fully oriented, in no acute distress. HEAD: No signs of trauma EYES: PERRLA, EOMI, sclera anicteric, conjunctiva clear ENT: Auricles normal inspection, hearing grossly normal, nares patent, oropharynx clear without exudates. Moist mucosa NECK: Normal ROM, supple, no lymphadenopathy, JVD, or masses LUNGS: +Scattered crackles. +Non productive cough. HEART: Regular rate and rhythm, normal S1 and S2, no murmurs, rubs or gallops ABDOMEN: Soft, nontender, normoactive bowel sounds. No guarding, no rebound. No masses EXTREMITIES: +4 pitting edema bilateral lower extremities. Normal range of motion. No clubbing or cyanosis. No cords, erythema, or tenderness NEUROLOGICAL: Cranial nerves II through XII grossly intact. Normal speech, normal gait SKIN: Warm, Dry, normal turgor, no rashes or lesions noted. <Ramiro Carroll - Last Filed: 02/25/17 22:28> - Vital Signs Last Vital Signs Temp Pulse Resp BP Pulse Ox 98.4 F 69 20 118/69 96 02/25/17 16:48 02/25/17 16:48 02/25/17 16:48 02/25/17 16:48 02/25/17 16:48 <Juan Mercedes - Last Filed: 02/25/17 22:57> ED Treatment Course - LABORATORY CBC & Chemistry Diagram: 02/25/17 17:50 02/25/17 17:50 - ADDITIONAL ORDERS Additional order review: Laboratory Results 02/25/17 02/25/17 02/25/17 19:25 17:50 17:50 PT with INR 44.60 H INR 3.94 H D PTT (Actin FS) 43.4 H Sodium Potassium Chloride Carbon Dioxide Anion Gap BUN Creatinine Creat Clearance w eGFR POC Glucometer 233.69297 Random Glucose Calcium Total Bilirubin AST ALT Alkaline Phosphatase Creatine Kinase Troponin I B-Natriuretic Peptide 4466.27 H Total Protein Albumin 02/25/17 17:50 PT with INR INR PTT (Actin FS) Sodium 133 L Potassium 4.2 Chloride 100 Carbon Dioxide 23 Anion Gap 10 BUN 98 H D Creatinine 4.4 H D Creat Clearance w eGFR 13.74 POC Glucometer Random Glucose 211 H D Calcium 8.4 L Total Bilirubin 0.5 AST 15 D ALT 25 D Alkaline Phosphatase 233 H D Creatine Kinase 111 Troponin I < 0.02 B-Natriuretic Peptide Total Protein 6.6 Albumin 2.6 L 02/25/17 02/25/17 19:25 17:50 RBC 3.18 L MCV 86.6 MCHC 32.8 RDW 15.1 MPV 9.0 Neutrophils % 80.6 Lymphocytes % 7.4 L Monocytes % 10.6 H Eosinophils % 0.8 Basophils % 0.6 POC Glucometer 233.59124 - RADIOLOGY Radiograph Interpretation: 02/25/17 21:49 EXAM#: TYPE/EXAM: RESULT: [id number] CT/CHEST CT WITHOUT CONTRAST HISTORY PROVIDED: Rule out occult pneumonia TECHNIQUE: Sequential axial images were obtained from the thoracic inlet through the domes of the diaphragm. Examination of the mediastinum demonstrates a moderate pericardial effusion. There is no evidence of mediastinal masses or lymphadenopathy. The heart is not enlarged. Extensive coronary artery calcification is noted. The right lobe of the thyroid gland is enlarged. There is a moderate left pleural effusion and a smaller right pleural effusion. Atelectatic changes are noted within the left lower lobe. Evaluation of the upper abdomen demonstrates a small amount of ascites. IMPRESSION: 1. Moderate pericardial effusion. 2. Bilateral pleural effusions, left greater than right, with left lower lobe atelectasis. 3. Ascites. Please see above discussion. Reported By: Dany Swift MD 02/25/17201402/25/17 21:52 EXAM#: TYPE/EXAM: RESULT: [id number] RAD/CHEST X-RAY PORTABLE* HISTORY PROVIDED: Lower lobe crackles. A single frontal portable projection of the chest at 5:53 PM is submitted. The heart size is enlarged. A left-sided pacemaker is present. The lung ventura are free of pulmonary infiltrates or pleural effusions. The left lung base is not well visualized. IMPRESSION: Cardiomegaly, no acute disease. Limited study as described above. Reported By: Dany Swift MD <Ramiro Carroll - Last Filed: 02/25/17 22:28> - LABORATORY CBC & Chemistry Diagram: 02/25/17 17:50 02/25/17 17:50 - ADDITIONAL ORDERS Additional order review: Laboratory Results 02/25/17 02/25/17 02/25/17 19:25 17:50 17:50 PT with INR 44.60 H INR 3.94 H D PTT (Actin FS) 43.4 H Sodium Potassium Chloride Carbon Dioxide Anion Gap BUN Creatinine Creat Clearance w eGFR POC Glucometer 233.71558 Random Glucose Calcium Total Bilirubin AST ALT Alkaline Phosphatase Creatine Kinase Troponin I B-Natriuretic Peptide 4466.27 H Total Protein Albumin 02/25/17 17:50 PT with INR INR PTT (Actin FS) Sodium 133 L Potassium 4.2 Chloride 100 Carbon Dioxide 23 Anion Gap 10 BUN 98 H D Creatinine 4.4 H D Creat Clearance w eGFR 13.74 POC Glucometer Random Glucose 211 H D Calcium 8.4 L Total Bilirubin 0.5 AST 15 D ALT 25 D Alkaline Phosphatase 233 H D Creatine Kinase 111 Troponin I < 0.02 B-Natriuretic Peptide Total Protein 6.6 Albumin 2.6 L 02/25/17 02/25/17 19:25 17:50 RBC 3.18 L MCV 86.6 MCHC 32.8 RDW 15.1 MPV 9.0 Neutrophils % 80.6 Lymphocytes % 7.4 L Monocytes % 10.6 H Eosinophils % 0.8 Basophils % 0.6 POC Glucometer 233.24617 <Juan Mercedes - Last Filed: 02/25/17 22:57> Medical Decision Making - Medical Decision Making 02/25/17 19:[address] results for decision making. 02/25/17 21:[address] Reveles at 9:40 pm 02/25/17 21:[address] Alberts at 9:47 pm Page returned from Dr. Alberts at 9:48 pm 02/25/17 22:[address] Tyler at 10:[address] Gate Cutter advised Dr. Cespedes is fashion designer and will return the page. 02/25/17 22:[address] Cespedes 10:05pm. 02/25/17 22:28 Page #[address] Reveles at 10:28pm answered. <Ramiro Carroll - Last Filed: 02/25/17 22:28> *DC/Admit/Observation/Transfer - Attestations Scribe Attestion: 02/25/17 20:31 Documentation prepared by Ramiro Carroll, acting as medical accountant for Juan Mercedes DO. <Ramiro Carroll - Last Filed: 02/25/17 22:28> - Discharge Dispostion Admit: Yes - Attestations Physician Attestion: 02/25/17 19:58 I, Dr. Juan Mercedes, attest that this document has been prepared under my direction and personally reviewed by me in its entirety. I further attest, that it accurately reflects all work, treatment, procedures and medical decision -making performed by me. <Juan Mercedes - Last Filed: 02/25/17 22:57> Diagnosis at time of Disposition: Systolic CHF, acute on chronic, HTN (hypertension) CHF exacerbation Qualifiers: Congestive heart failure type: combined Qualified Code(s): I50.43 - Acute on chronic combined systolic (congestive) and diastolic (congestive) heart failure - Discharge Dispostion Condition at time of disposition: Unchanged/Unknown - Referrals Referrals: Dawson Alberts MD [Primary Care Provider] -
[2017-02-25] MEDS ORDERED: FUROSEMIDE 40 MG/4 ML INJECTABLE VIAL IVPUSH ONE (21:39)
[2017-02-25] MEDS ORDERED: FUROSEMIDE 40 MG/4 ML INJECTABLE VIAL ONE (22:32)
[2017-02-25] MEDS ORDERED: predniSONE 10 MG TABLET (UD) PO ONE (22:50)
[2017-02-25] MEDS ORDERED: CARVEDILOL 12.5 MG TABLET (FP) PO ONE (22:51)
[2017-02-25] MEDS ORDERED: RANITIDINE HCL 150 MG TABLET (FP) PO ONE (23:04)
[2017-02-25 23:52] LABS: URINE APPEARANCE CLEAR; URINE BILIRUBIN NEGATIVE (NEGATIVE); URINE BLOOD 1+ (NEGATIVE); URINE COLOR LT. YELLOW; URINE GLUCOSE (UA) NEGATIVE (NEGATIVE); URINE KETONE NEGATIVE (NEGATIVE); URINE LEUK ESTERASE NEGATIVE (NEGATIVE); URINE NITRITE NEGATIVE (NEGATIVE); URINE UROBILINOGEN 0.2 mg/dL (0.2-1.0)
[2017-02-25 23:53] LABS: URINE PROTEIN 2+ (NEGATIVE)
[2017-02-26] MEDS ORDERED: ALBUTEROL SO4 2.5/IPRATROPIUM 0.5 INH SOL 3 ML VIAL.NEB. NEB SCH
[2017-02-26] MEDS: INSULIN SLIDING SCALE (NOVOLOG) 1 VIAL SQ SCH ×5 (00:03→22:19)
[2017-02-26] MEDS: ALBUTEROL SO4 2.5/IPRATROPIUM 0.5 INH SOL 3 ML VIAL.NEB. NEB SCH ×5 (00:10→23:35)
[2017-02-26 00:27] LABS: URINE HYALINE CAST 12 /lpf; URINE MUCUS RARE; URINE RBC 17 /hpf (0-3); URINE WBC 2 /hpf (3-5)
[2017-02-26 00:47] LABS: ALBUMIN 2.9 g/dl (3.4-5.0); ALK PHOS 238 U/L (45-117); ANION GAP 12 (8-16); BILIRUBIN,TOTAL 0.6 mg/dL (0.2-1.0); CALCIUM 8.5 mg/dL (8.5-10.1); CO2 23 mmol/L (21-32); CPK 131 IU/L (39-308); CREATININE 4.5 mg/dL (0.7-1.3); GLUCOSE,RANDOM 181 mg/dL (74-106); SGOT/AST 13 U/L (15-37); SGPT/ALT 25 U/L (12-78); TOT PROT 6.8 g/dl (6.4-8.2); TROPONIN I < 0.02 ng/ml (0.00-0.05)
[2017-02-26] MEDS ORDERED: FUROSEMIDE 40 MG/4 ML INJECTABLE VIAL IVPB SCH ×2 (06:00→10:00)
[2017-02-26] MEDS ORDERED: CARVEDILOL 6.25 MG TABLET (FP) PO SCH (07:00)
[2017-02-26] MEDS: INSULIN (NOVOLOG MIX 70/30) 100 UNITS/ML MDV SQ SCH ×2 (07:10→17:35)
[2017-02-26 07:15] LABS: PROTHROMBIN TIME (PATIENT) 49.4 SEC (9.98-11.88)
[2017-02-26 07:25] LABS: INR 4.36 (0.82-1.09)
[2017-02-26] MEDS ORDERED: PT OWN MED DRAWER 7, Y5N ONE (09:37)
[2017-02-26] MEDS: LIDOCAINE 5% TOPICAL PATCH TP SCH (09:41)
[2017-02-26] MEDS: CARVEDILOL 12.5 MG TABLET (FP) PO SCH ×2 (09:42→22:16)
[2017-02-26] MEDS: predniSONE 20 MG TABLET (UD) PO SCH (09:43)
[2017-02-26] MEDS ORDERED: FUROSEMIDE 40 MG/4 ML INJECTABLE VIAL IVPUSH ONE (09:45)
--- NOTE | 2017-02-26 09:46 | EKG ---
Test Reason : Blood Pressure : / mmHG Vent. Rate : 071 BPM Atrial Rate : 070 BPM P-R Int : 000 ms QRS Dur : 170 ms QT Int : 482 ms P-R-T Axes : 037 -36 124 degrees QTc Int : 523 ms POOR DATA QUALITY, INTERPRETATION MAY BE ADVERSELY AFFECTED Ventricular-paced rhythm ABNORMAL ECG Confirmed by MD DAVONTE, ONEL ([id number]) on 02/26/2017 9:45:43 AM Referred By: Confirmed By:ONEL ARAUZ MD
--- NOTE | 2017-02-26 09:58 | CON.CARD ---
Cardiology Consult (text) - Consultation Consultation Note: CC: CP hpi: 61 year old with h/o ischemic cardiomyopathy, CAD s/p multiple PCI's, most recent 02/2014, afib, SSS s/p pacemaker, diabetes, chronic kidney disease, asthma , jose on nivppv at home, morbid obesity who p/w sob, productive cough. Was admitted here last week for atypical cp, had low risk mibi and discharged home. He says that since discharge he has been feeling sob with productive cough ( yellow sputum). No cp, palps, dizzy, loc. +pnd, +orthopnea. Le edema chronic , stable. Wt has been elevated at home as well. Sees dr pena for cardio. denies fever, diaphoresis, chills, nausea, vomiting, diarrhea, urinary symptoms , rashes, headache claudication, bleeding or transient neurologic symptoms. PMhx: Per hpi Family hx: multiple family members with CAD, cardiomyopathy and arrhythmia Social hx: former smoker, rare alcohol, no illicits ROS: per hpi. Home Medications Medication Instructions Recorded Febuxostat [Uloric -] 80 mg PO DAILY #0 tab 03/10/12 Lidocaine 5% Patch [Lidoderm -] 1 patch TP DAILY #0 patch 03/10/12 Acetaminophen [Tylenol 1,000 mg PO Q6H PRN 11/26/13 .Extra-Strength -] Ergocalciferol (Vitamin D2) 50,000 unit PO WEEKLY 11/26/13 [Vitamin D] Esomeprazole Mag Trihydrate 40 mg PO DAILY 11/26/13 [Nexium] Insulin Regular, Human [Humulin R 2 units SQ ASDIR PRN 11/26/13 -] Gabapentin 100 mg PO HS 12/30/13 Insulin (Novolog 70/30) [Novolog 15 units SQ BID 02/17/14 Mix 70/30 Flexpen -] Atorvastatin Ca [Lipitor] 20 mg PO HS 06/17/15 Torsemide [Demadex -] 100 mg PO DAILY tablet 06/23/15 Iron Dextran Complex [Infed] 100 mg IJ ASDIR 10/04/15 Dulaglutide [Trulicity] 0.75 mg SQ WEEKLY 10/05/15 Carvedilol [Coreg -] 18.75 mg PO DAILY 09/24/16 Albuterol 2.5/Ipratropium 0.5 1 amp NEB QIDR amp 09/27/16 [Duoneb -] Amox-Tr/K Cl [Augmentin 875-125mg 1 tab PO BID@0800,1730 #14 tablet 09/27/16 Tablet -] Prednisone 10 mg PO DAILY #40 tablet 09/27/16 Warfarin Na [Coumadin -] 2.5 mg PO DAILY@1800 #30 tablet 09/27/16 Vital Signs Period Temp Pulse Resp BP Sys/Olsen Pulse Ox Last 24 Hr 98.1 F-98.7 F 64-74 16-23 102-138/52-71 95-100 NAD, calm JVD flat, neck supple cta bl, nl effort RRR nl S1, s2 no m/r/g + bs soft obese nt nd ext without cyanosis, clubbing trace edema with venous stasis changes + dp/pt no carotid bruits aaox3 no jaundice diaphoresis abd nt nd pos bs Laboratory Last Values WBC 8.7 K/mm3 (4.0-10.0) 02/25/17 17:50 RBC 3.18 M/mm3 (4.00-5.60) L 02/25/17 17:50 Hgb 9.0 GM/dL (11.7-16.9) L 02/25/17 17:50 Hct 27.5 % (35.4-49) L 02/25/17 17:50 MCV 86.6 fl (80-96) 02/25/17 17:50 MCH 28.4 pg (25.7-33.7) 02/25/17 17:50 MCHC 32.8 g/dl (32.0-35.9) 02/25/17 17:50 RDW 15.1 % (11.9-15.9) 02/25/17 17:50 Plt Count 226 K/MM3 (134-434) D 02/25/17 17:50 MPV 9.0 fl (7.5-11.1) 02/25/17 17:50 Neutrophils % 80.6 % (42.8-82.8) 02/25/17 17:50 Lymphocytes % 7.4 % (8-40) L 02/25/17 17:50 Monocytes % 10.6 % (3.8-10.2) H 02/25/17 17:50 Eosinophils % 0.8 % (0-4.5) 02/25/17 17:50 Basophils % 0.6 % (0-2.0) 02/25/17 17:50 PT with INR 49.40 SEC (9.98-11.88) H 02/26/17 06:15 INR 4.36 (0.82-1.09) H* 02/26/17 06:15 PTT (Actin FS) 43.4 SECONDS (26.9-34.4) H 02/25/17 17:50 Sodium 134 mmol/L (136-145) L 02/25/17 23:42 Potassium 4.5 mmol/L (3.5-5.1) 02/25/17 23:42 Chloride 99 mmol/L (98-107) 02/25/17 23:42 Carbon Dioxide 23 mmol/L (21-32) 02/25/17 23:42 Anion Gap 12 (8-16) 02/25/17 23:42 BUN 97 mg/dL (7-18) H 02/25/17 23:42 Creatinine 4.5 mg/dL (0.7-1.3) H 02/25/17 23:42 Creat Clearance w eGFR 13.39 (>60) 02/25/17 23:42 POC Glucometer 179 UNITS (()) 02/26/17 07:08 Random Glucose 181 mg/dL (74-106) H 02/25/17 23:42 Calcium 8.5 mg/dL (8.5-10.1) 02/25/17 23:42 Total Bilirubin 0.6 mg/dL (0.2-1.0) 02/25/17 23:42 AST 13 U/L (15-37) L 02/25/17 23:42 ALT 25 U/L (12-78) 02/25/17 23:42 Alkaline Phosphatase 238 U/L (45-117) H 02/25/17 23:42 Creatine Kinase 131 IU/L (39-308) 02/25/17 23:42 Troponin I < 0.02 ng/ml (0.00-0.05) 02/25/17 23:42 B-Natriuretic Peptide 4466.27 pg/ml (5-125) H 02/25/17 17:50 Total Protein 6.8 g/dl (6.4-8.2) 02/25/17 23:42 Albumin 2.9 g/dl (3.4-5.0) L 02/25/17 23:42 Urine Color Lt. yellow 02/25/17 23:42 Urine Appearance Clear 02/25/17 23:42 Urine pH 5.0 (5.0-8.0) 02/25/17 23:42 Urine Protein 2+ (NEGATIVE) H 02/25/17 23:42 Urine Glucose (UA) Negative (NEGATIVE) 02/25/17 23:42 Urine Ketones Negative (NEGATIVE) 02/25/17 23:42 Urine Blood 1+ (NEGATIVE) H 02/25/17 23:42 Urine Nitrite Negative (NEGATIVE) 02/25/17 23:42 Urine Bilirubin Negative (NEGATIVE) 02/25/17 23:42 Urine Urobilinogen 0.2 mg/dL (0.2-1.0) 02/25/17 23:42 Urine RBC 17 /hpf (0-3) 02/25/17 23:42 Urine WBC 2 /hpf (3-5) 02/25/17 23:42 Ur Epithelial Cells Rare /hpf (FEW) 02/25/17 23:42 Hyaline Casts 12 /lpf 02/25/17 23:42 Urine Mucus Rare 02/25/17 23:42 Echo 10/19 ([place]): nl LV size with mild-mod global HK (EF 45%); mild MR RHC 10/19: wedge 25, PA 50/20; CI 2.7-->nitroprusside: wedge 10, PA 25/15; CI 2.4 cath 02/2014: mLAD ESTER for ISR, patent stents in mRCA, pLAD, PLCx, OM1, residual ISR 50-60% OM2 stent mibi 02/2017: moderate size infarct of septal/inferoseptal/inferior wall from apex to mid with mild janak-infarct ischemia. global hk, lvef 35% ecg 02/25/17: sr, vpaced ct chest: b/l pleural effs l>r, mod pericardial eff, small ascites tele: sr, as-v paced a/p: 61 year old with h/o ischemic cardiomyopathy, CAD s/p multiple PCI's, most recent 02/2014, afib, SSS s/p pacemaker, diabetes, chronic kidney disease, asthma , jose on nivppv at home, morbid obesity who p/w sob, productive cough. Ischemic cardiomyopathy, acute on chronic syst chf - dry wt runs 332-338, now 350 here on admit, was taking torsemide 100 qd at home - will diurese with lasix 80 iv bid to start, monitor daily wts, chem7 - con't coreg - no NAKUL due to ckd sob, productive cough: -chf treatment as above -will need to observe for signs of infection as well given recent hospital admit and productive cough parox Afib: - previous DCCV yrs ago, maintained on multaq for rhythm control - multaq stopped 2015 by EP at [place] [facility] due to worsening creatinine (improved to 2.5 range from 3 at that time) - no AF noted since - cont BB as doing - On AC with coumadin per INR (holding now due to elevated inr) SSS s/p biotronik PPM - nl fcn on ecg/tele here. cont with routine office checks. CAD - no signs acs, ce's neg x2 - s/p multiple PCI's, most recent 02/2014 --mLAD ESTER PCI for ISR--stable, minimal residual, - not on anti-platelet due to h/o gib and pt on coumadin - not on NAKUL due to fluctuating creatinines - mibi here 02/2017 was low risk study, no significant ischemia. HTN - cont home meds HL - on atorvastatin, cont same CKD: - baseline creat since chf optimized and multaq d/c'd has been 2.6-3.2 (on longstanding torsemide 100 qd regimen at home) - cr above baseline on admit, possibly cardiorenal, observe trend with diuresis pericardial effusion: -ct chest reports moderate peric eff -pt has no signs of tamponade -likely related to ckd, total body fluid overload (also has pleural effs and ascites) -cont with diuresis as above -can check routine echo
[2017-02-26] MEDS ORDERED: PATIENT'S OWN MEDICATION (NON-FORMULARY) (Insulin (Novolog 70/30) [Novolog Mix 70/30 Flexp SQ SCH (10:00)
--- NOTE | 2017-02-26 10:07 | HP ---
Admitting History and Physical - Admission History of Present Illness: 61 year old with h/o ischemic cardiomyopathy, CAD s/p multiple PCI's, most recent 02/2014, afib, SSS s/p pacemaker, diabetes, chronic kidney disease, asthma , jose on bipap at home, morbid obesity who p/w sob, productive cough. Was admitted here last week for atypical cp, had low risk mibi and discharged home. He says that since discharge he has been feeling sob with productive cough ( yellow sputum). No cp. +pnd, +orthopnea. Le edema chronic, stable. Wt has been elevated at home as well. This am pt c/o fatigue and sob - Past Medical History Cardiovascular: Yes: AFIB, CAD, HTN, Hyperlipdemia Pulmonary: Yes: COPD Renal/: Yes: Renal Inusuff, BPH, Other (Hyperuricemia) Heme/Onc: Yes: Anemia Musculoskeletal: Yes: Chronic low back pain, Osteoarthritis Rheumatology: Yes: Gout Endocrine: Yes: Diabetes Mellitus, Other (goiter) - Past Surgical History Past Surgical History: Yes: Permanent Pacemaker, Stent - Smoking History Smoking history: Former smoker Have you smoked in the past 12 months: No Aproximately how many cigarettes per day: 0 If you are a former smoker, when did you quit?: 2006 - Alcohol/Substance Use Hx Alcohol Use: No History of Substance Use: reports: None Home Medications - Allergies Allergies/Adverse Reactions: Allergies Allergy/AdvReac Type Severity Reaction Status Date / Time levofloxacin [From Levaquin] Allergy Intermediate EYE Verified 02/25/17 16:52 IRRITATION - Home Medications Home Medications: Ambulatory Orders Febuxostat [Uloric -] 80 mg PO DAILY #0 tab 03/10/12 Lidocaine 5% Patch [Lidoderm -] 1 patch TP DAILY #0 patch 03/10/12 Acetaminophen [Tylenol .Extra-Strength -] 1,000 mg PO Q6H PRN 11/26/13 Ergocalciferol (Vitamin D2) [Vitamin D] 50,000 unit PO WEEKLY 11/26/13 Esomeprazole Mag Trihydrate [Nexium] 40 mg PO DAILY 11/26/13 Insulin Regular, Human [Humulin R -] 2 units SQ ASDIR PRN 11/26/13 Gabapentin 100 mg PO HS 12/30/13 Insulin (Novolog 70/30) [Novolog Mix 70/30 Flexpen -] 15 units SQ BID 02/17/14 Atorvastatin Ca [Lipitor] 20 mg PO HS 06/17/15 Torsemide [Demadex -] 100 mg PO DAILY tablet 06/23/15 Iron Dextran Complex [Infed] 100 mg IJ ASDIR 10/04/15 Dulaglutide [Trulicity] 0.75 mg SQ WEEKLY 10/05/15 Carvedilol [Coreg -] 18.75 mg PO DAILY 09/24/16 Albuterol 2.5/Ipratropium 0.5 [Duoneb -] 1 amp NEB QIDR amp 09/27/16 Amox-Tr/K Cl [Augmentin 875-125mg Tablet -] 1 tab PO BID@0800,1730 #14 tablet Prednisone 10 mg PO DAILY #40 tablet 09/27/16 Warfarin Na [Coumadin -] 2.5 mg PO DAILY@1800 #30 tablet 09/27/16 Family Disease History - Family Disease History Family Disease History: Diabetes: Brother Review of Systems - Review of Systems Constitutional: reports: Weakness Cardiovascular: reports: Shortness of Breath. denies: Chest Pain Respiratory: reports: Cough, SOB, SOB on Exertion Gastrointestinal: denies: Abdominal Pain Genitourinary: reports: No Symptoms Neurological: reports: Weakness Physical Examination Vital Signs: Vital Signs Temperature 98.7 F 02/26/17 07:13 Pulse Rate 64 02/26/17 07:13 Respiratory Rate 20 02/26/17 07:13 Blood Pressure 138/59 02/26/17 07:13 O2 Sat by Pulse Oximetry (%) 95 02/26/17 00:18 Cardiovascular: Yes: Murmur, S1, S2 Respiratory: Yes: Diminished, Rales Gastrointestinal: Yes: Normal Bowel Sounds, Soft Edema: Yes Labs: CBC, BMP 02/25/17 23:42 Imaging - Results Cat Scan: Report Reviewed Problem List - Problems (1) Pericardial effusion Assessment/Plan: NEW NOT ON RECENT CT D/W CARDIO--NO EVIDENCE OF TAMPONADE FOLLOW CLOSELY ECHO T/S Code(s): I31.3 - PERICARDIAL EFFUSION (NONINFLAMMATORY) (2) HTN (hypertension) Assessment/Plan: SAME MEDS MONITOR Code(s): I10 - ESSENTIAL (PRIMARY) HYPERTENSION (3) Systolic CHF, acute on chronic Assessment/Plan: IV LASIX FOLLOW LABS Code(s): I50.23 - ACUTE ON CHRONIC SYSTOLIC (CONGESTIVE) HEART FAILURE (4) Acute on chronic renal failure Assessment/Plan: MONITOR RENAL FUNCTION ON DIURETICS Code(s): N17.9 - ACUTE KIDNEY FAILURE, UNSPECIFIED N18.9 - CHRONIC KIDNEY DISEASE, UNSPECIFIED (5) Atrial fibrillation Assessment/Plan: HOLD COUMADIN MONITOR INR Code(s): I48.91 - UNSPECIFIED ATRIAL FIBRILLATION (6) Insulin dependent diabetes mellitus Assessment/Plan: BGM ENDO CONSULT Code(s): E11.9 - TYPE 2 DIABETES MELLITUS WITHOUT COMPLICATIONS Z79.4 - INTERMEDIATE (CURRENT) USE OF INSULIN
[2017-02-26 10:32] LABS: ALBUMIN 2.6 g/dl (3.4-5.0); ALK PHOS 212 U/L (45-117); ANION GAP 11 (8-16); BILIRUBIN,TOTAL 0.6 mg/dL (0.2-1.0); CALCIUM 8.6 mg/dL (8.5-10.1); CO2 22 mmol/L (21-32); CREATININE 4.5 mg/dL (0.7-1.3); GLUCOSE,RANDOM 168 mg/dL (74-106); SGOT/AST 12 U/L (15-37); SGPT/ALT 24 U/L (12-78); TOT PROT 6.6 g/dl (6.4-8.2)
[2017-02-26 11:10] LABS: BASOPHIL 0.8 % (0-2.0); EOSINOPHIL 1.1 % (0-4.5); MCH 28.3 pg (25.7-33.7); MEAN CELL VOLUME 85.7 fl (80-96); MEAN PLT VOLUME 8.6 fl (7.5-11.1); NEUTROPHILS 80.6 % (42.8-82.8); PLATELET COUNT 266 K/MM3 (134-434); RDW 14.8 % (11.9-15.9); WHITE BLOOD COUNT 9.1 K/mm3 (4.0-10.0)
[2017-02-26] MEDS: PANTOPRAZOLE 40 MG TABLET (FP) PO SCH (11:20)
[2017-02-26 13:29] LABS: ERYTHROCYTE SEDIMENTATION RATE > 130 mm/hr (0-20)
[2017-02-26] MEDS: FUROSEMIDE 40 MG/4 ML INJECTABLE VIAL IVPUSH SCH (14:20)
[2017-02-26] MEDS: FEBUXOSTAT 80 MG TAB PO SCH (14:20)
[2017-02-26] MEDS ORDERED: WARFARIN NA 2.5 MG TABLET (FP) PO SCH (18:00)
[2017-02-26] MEDS ORDERED: WARFARIN NA 2.5 MG TABLET (FP) PO ONE (18:00)
--- NOTE | 2017-02-26 19:41 | CONSULT ---
Consult Consult Specialty:: endocrine Referred by:: dr.iyad krueger Reason for Consultation:: diabetes melitus - History of Present Illness Chief Complaint: high sugars History of Present Illness: 61 y male dm,morbid obesity,cad,htn,hyperlipidemia,sp dc after mibi stress test, now presenting w chf cough,respiratory distress,ISMAEL requiring diureses,oxygen, and cardiac monitoring - History Source History Provided By: Patient - Past Medical History Cardio/Vascular: Yes: AFIB, CAD, HTN, Hyperlipdemia Pulmonary: Yes: COPD Renal/: Yes: Renal Inusuff, BPH, Other (Hyperuricemia) Musculoskeletal: Yes: Chronic low back pain, Osteoarthritis Rheumatology: Yes: Gout Endocrine: Yes: Diabetes Mellitus, Other (goiter) - Past Surgical History Past Surgical History: Yes: Permanent Pacemaker, Stent - Alcohol/Substance Use Hx Alcohol Use: No History of Substance Use: reports: None - Smoking History Smoking history: Former smoker Have you smoked in the past 12 months: No Aproximately how many cigarettes per day: 0 If you are a former smoker, when did you quit?: 2005 Home Medications - Allergies Allergies/Adverse Reactions: Allergies Allergy/AdvReac Type Severity Reaction Status Date / Time levofloxacin [From Levaquin] Allergy Intermediate EYE Verified 02/25/17 16:52 IRRITATION - Home Medications Home Medications: Ambulatory Orders Febuxostat [Uloric -] 80 mg PO DAILY #0 tab 03/10/12 Lidocaine 5% Patch [Lidoderm -] 1 patch TP DAILY #0 patch 03/10/12 Acetaminophen [Tylenol .Extra-Strength -] 1,000 mg PO Q6H PRN 11/26/13 Ergocalciferol (Vitamin D2) [Vitamin D] 50,000 unit PO WEEKLY 11/26/13 Esomeprazole Mag Trihydrate [Nexium] 40 mg PO DAILY 11/26/13 Insulin Regular, Human [Humulin R -] 2 units SQ ASDIR PRN 11/26/13 Gabapentin 100 mg PO HS 12/30/13 Insulin (Novolog 70/30) [Novolog Mix 70/30 Flexpen -] 15 units SQ BID 02/17/14 Atorvastatin Ca [Lipitor] 20 mg PO HS 06/17/15 Torsemide [Demadex -] 100 mg PO DAILY tablet 06/23/15 Iron Dextran Complex [Infed] 100 mg IJ ASDIR 10/04/15 Dulaglutide [Trulicity] 0.75 mg SQ WEEKLY 10/05/15 Carvedilol [Coreg -] 18.75 mg PO DAILY 09/24/16 Albuterol 2.5/Ipratropium 0.5 [Duoneb -] 1 amp NEB QIDR amp 09/27/16 Amox-Tr/K Cl [Augmentin 875-125mg Tablet -] 1 tab PO BID@0800,1730 #14 tablet Prednisone 10 mg PO DAILY #40 tablet 09/27/16 Warfarin Na [Coumadin -] 2.5 mg PO DAILY@1800 #30 tablet 09/27/16 Family Disease History - Family Disease History Family Disease History: Diabetes: Brother Review of Systems - Review of Systems Constitutional: reports: Lethargy, Loss of Appetite, Weakness HENT: reports: Nasal Congestion Cardiovascular: reports: Palpitations, Shortness of Breath Respiratory: reports: Exercise Intolerance, Orthopnea, SOB, SOB on Exertion Gastrointestinal: reports: Bloating, Constipation Genitourinary: reports: Frequency Breasts: reports: No Symptoms Reported Musculoskeletal: reports: Joint Swelling, Muscle Pain, Muscle Cramps Neurological: reports: Numbness, Weakness Endocrine: reports: Excessive Sweating, Unexplained Weight Gain Physical Exam Vital Signs: Vital Signs Temperature 98.4 F 02/26/17 13:58 Pulse Rate 70 02/26/17 13:58 Respiratory Rate 18 02/26/17 13:58 Blood Pressure 103/56 02/26/17 13:58 O2 Sat by Pulse Oximetry (%) 96 02/26/17 10:31 Constitutional: Yes: Moderate Distress Eyes: Yes: EOM Intact HENT: Yes: Normocephalic Neck: Yes: Thyromegaly Cardiovascular: Yes: Tachycardia, JVD Respiratory: Yes: Accessory Muscle Use, Orthopnea, Rhonchi, SOB on Exertion, Tachypnea Gastrointestinal: Yes: Abdomen, Obese ...Rectal Exam: Yes: Deferred Musculoskeletal: Yes: Back Pain, Joint Stiffness, Muscle Pain, Muscle Weakness Extremities: Yes: Erythema Edema: Yes Edema: LLE: 3+, RLE: 3+ Peripheral Pulses WNL: Yes Neurological: Yes: Alert, Oriented, Weakness Labs: CBC, BMP 02/26/17 11:05 02/26/17 10:13 Problem List - Problems (1) CHF exacerbation Code(s): I50.9 - HEART FAILURE, UNSPECIFIED Qualifiers: Congestive heart failure type: combined Qualified Code(s): I50.43 - Acute on chronic combined systolic (congestive) and diastolic (congestive) heart failure (2) Systolic CHF, acute on chronic Code(s): I50.23 - ACUTE ON CHRONIC SYSTOLIC (CONGESTIVE) HEART FAILURE (3) Acute on chronic renal failure Code(s): N17.9 - ACUTE KIDNEY FAILURE, UNSPECIFIED N18.9 - CHRONIC KIDNEY DISEASE, UNSPECIFIED (4) Anemia Code(s): D64.9 - ANEMIA, UNSPECIFIED Qualifiers: Anemia type: iron deficiency (5) Atrial fibrillation Code(s): I48.91 - UNSPECIFIED ATRIAL FIBRILLATION (6) Type 2 diabetes mellitus with diabetic neuropathic arthropathy Code(s): E11.610 - TYPE 2 DIABETES MELLITUS W DIABETIC NEUROPATHIC ARTHROPATHY Assessment/Plan Current Active Problems CHF exacerbation (Acute) Cough (Acute) HTN (hypertension) (Acute) Pericardial effusion (Acute) Systolic CHF, acute on chronic (Acute) Type 2 diabetes mellitus with diabetic neuropathic arthropathy (Acute) dm hyperglycemia Abnormal Lab Results 02/25/17 02/25/17 02/25/17 17:50 23:42 23:42 RBC Hgb Hct ESR PT with INR 44.60 H INR 3.94 H D PTT (Actin FS) 43.4 H Sodium 134 L BUN 97 H Creatinine 4.5 H Random Glucose 181 H AST 13 L Alkaline Phosphatase 238 H C-Reactive Protein Albumin 2.9 L Urine Protein 2+ H Urine Blood 1+ H 02/26/17 02/26/17 02/26/17 06:15 10:13 11:05 RBC 3.12 L Hgb 8.8 L Hct 26.7 L ESR > 130 H PT with INR 49.40 H INR 4.36 H* PTT (Actin FS) Sodium 133 L BUN 100 H Creatinine 4.5 H Random Glucose 168 H AST 12 L Alkaline Phosphatase 212 H C-Reactive Protein 13.0 H D Albumin 2.6 L Urine Protein Urine Blood Laboratory Results - last 24 hr 02/25/17 02/25/17 02/25/17 17:50 23:42 23:42 WBC RBC Hgb Hct MCV MCH MCHC RDW Plt Count MPV Neutrophils % Lymphocytes % Monocytes % Eosinophils % Basophils % ESR PT with INR 44.60 H INR 3.94 H D PTT (Actin FS) 43.4 H Sodium 134 L Potassium 4.5 Chloride 99 Carbon Dioxide 23 Anion Gap 12 BUN 97 H Creatinine 4.5 H Creat Clearance w eGFR 13.39 POC Glucometer Random Glucose 181 H Calcium 8.5 Total Bilirubin 0.6 AST 13 L ALT 25 Alkaline Phosphatase 238 H Creatine Kinase Troponin I C-Reactive Protein Total Protein 6.8 Albumin 2.9 L Urine Color Lt. yellow Urine Appearance Clear Urine pH 5.0 Ur Specific [place] 1.020 Urine Protein 2+ H Urine Glucose (UA) Negative Urine Ketones Negative Urine Blood 1+ H Urine Nitrite Negative Urine Bilirubin Negative Urine Urobilinogen 0.2 Urine RBC 17 Urine WBC 2 Ur Epithelial Cells Rare Hyaline Casts 12 Urine Mucus Rare 02/25/17 02/26/17 02/26/17 23:42 06:15 07:08 WBC RBC Hgb Hct MCV MCH MCHC RDW Plt Count MPV Neutrophils % Lymphocytes % Monocytes % Eosinophils % Basophils % ESR PT with INR 49.40 H INR 4.36 H* PTT (Actin FS) Sodium Potassium Chloride Carbon Dioxide Anion Gap BUN Creatinine Creat Clearance w eGFR POC Glucometer 179 Random Glucose Calcium Total Bilirubin AST ALT Alkaline Phosphatase Creatine Kinase 131 Troponin I < 0.02 C-Reactive Protein Total Protein Albumin Urine Color Urine Appearance Urine pH Ur Specific [place] Urine Protein Urine Glucose (UA) Urine Ketones Urine Blood Urine Nitrite Urine Bilirubin Urine Urobilinogen Urine RBC Urine WBC Ur Epithelial Cells Hyaline Casts Urine Mucus 02/26/17 02/26/17 02/26/17 10:13 11:05 11:24 WBC 9.1 RBC 3.12 L Hgb 8.8 L Hct 26.7 L MCV 85.7 MCH 28.3 MCHC 33.0 RDW 14.8 Plt Count 266 MPV 8.6 Neutrophils % 80.6 Lymphocytes % 8.0 Monocytes % 9.5 Eosinophils % 1.1 Basophils % 0.8 ESR > 130 H PT with INR INR PTT (Actin FS) Sodium 133 L Potassium 4.3 Chloride 100 Carbon Dioxide 22 Anion Gap 11 BUN 100 H Creatinine 4.5 H Creat Clearance w eGFR 13.39 POC Glucometer 201 Random Glucose 168 H Calcium 8.6 Total Bilirubin 0.6 AST 12 L ALT 24 Alkaline Phosphatase 212 H Creatine Kinase Troponin I C-Reactive Protein 13.0 H D Total Protein 6.6 Albumin 2.6 L Urine Color Urine Appearance Urine pH Ur Specific [place] Urine Protein Urine Glucose (UA) Urine Ketones Urine Blood Urine Nitrite Urine Bilirubin Urine Urobilinogen Urine RBC Urine WBC Ur Epithelial Cells Hyaline Casts Urine Mucus 02/26/17 17:16 WBC RBC Hgb Hct MCV MCH MCHC RDW Plt Count MPV Neutrophils % Lymphocytes % Monocytes % Eosinophils % Basophils % ESR PT with INR INR PTT (Actin FS) Sodium Potassium Chloride Carbon Dioxide Anion Gap BUN Creatinine Creat Clearance w eGFR POC Glucometer 204 Random Glucose Calcium Total Bilirubin AST ALT Alkaline Phosphatase Creatine Kinase Troponin I C-Reactive Protein Total Protein Albumin Urine Color Urine Appearance Urine pH Ur Specific [place] Urine Protein Urine Glucose (UA) Urine Ketones Urine Blood Urine Nitrite Urine Bilirubin Urine Urobilinogen Urine RBC Urine WBC Ur Epithelial Cells Hyaline Casts Urine Mucus plan: Current Medications Generic Name Dose Route Start Last Admin Trade Name Freq PRN Reason Stop Dose Admin Albuterol/Ipratropium 1 amp 02/26/17 00:00 02/26/17 17:41 Duoneb - NEB 1 amp QIDR MELISSA Administration Atorvastatin Calcium 20 mg 02/26/17 22:00 Lipitor - PO HS MELISSA Carvedilol 18.75 mg 02/26/17 10:00 02/26/17 09:42 Coreg - PO 18.75 mg BID MELISSA Administration Febuxostat 80 mg 02/26/17 10:00 02/26/17 14:20 Uloric - PO 80 mg DAILY MELISSA Administration Furosemide 80 mg 02/26/17 08:31 02/26/17 14:20 Lasix Injection - IVPUSH 80 mg BIDLASIX MELISSA Administration Gabapentin 100 mg 02/26/17 22:00 Neurontin - PO HS MELISSA Insulin Aspart 1 vial 02/26/17 07:00 02/26/17 17:36 Novolog Vial Sliding Scale - SQ 6 units ACHS MELISSA Administration Protocol Insulin Aspart 15 units 02/26/17 07:00 02/26/17 17:35 Novolog Mix 70/30 Vial SQ 15 units BIDAC MELISSA Administration Lidocaine 1 patch 02/26/17 10:00 02/26/17 09:41 Lidoderm Patch - TP 1 patch DAILY MELISSA Administration Miscellaneous 1 each 02/26/17 22:00 Lidoderm Patch Removal MC DAILY@2200 MELISSA Pantoprazole Sodium 40 mg 02/26/17 10:15 02/26/17 11:20 Protonix - PO 40 mg DAILY MELISSA Administration Prednisone 20 mg 02/26/17 10:00 02/26/17 09:43 Deltasone - PO 20 mg DAILY MELISSA Administration bgm qid novolog coverage novolog 70/30 bid iv lasix for diuresis renal consult ismael plan for cardiac angio? thyroid nodule noted on ct scan to have fna at later time
[2017-02-26] MEDS ORDERED: INSULIN (NOVOLOG) ASPART 100 UNITS/ML 10ML VIAL ONE (22:14)
[2017-02-26] MEDS: ATORVASTATIN CA 20 MG TABLET (FP) PO SCH (22:16)
[2017-02-26] MEDS: GABAPENTIN 100 MG CAPSULE (FP) PO SCH (22:16)
[2017-02-26] MEDS: LIDOCAINE PATCH REMOVAL MC SCH (22:27)
[2017-02-27] MEDS: FUROSEMIDE 40 MG/4 ML INJECTABLE VIAL IVPUSH SCH ×2 (06:05→13:19)
[2017-02-27] MEDS: INSULIN (NOVOLOG MIX 70/30) 100 UNITS/ML MDV SQ SCH ×2 (06:06→17:10)
[2017-02-27] MEDS: INSULIN SLIDING SCALE (NOVOLOG) 1 VIAL SQ SCH ×4 (06:06→22:30)
--- NOTE | 2017-02-27 06:48 | CONSULT ---
Consult - text type - Consultation Consultation Note: Thoracic Surgery Consultation: Reason for consult: pericardial effusion CC: chest pain 61M w/h/o ischemic cardiomyopathy s/p multiple PCI, afib, pacemaker, DM, CRI, Asthma, morbid obesity s/p recent hospitalization and low-risk sestamibi, readmitted with chest pain and sob. Now with productive sputum. CT showed b/l pleural effusion left > right, ascites, and moderate pericardial effusion. All new from prior CT. No hemoptysis or weight loss. PE: HD stable NAD Chest with crackles at bases left > right Cor: S1S2 audible Imp/Plan: Anasarca, pericardial effusion new, unlikely causing tamponade -Per patient to be transferred to [place] for further cardiac workup -Echo I have spent 40 minutes reviewing images, history, and physical, with >50% involved in counseling and coordination of care for this patient.
[2017-02-27] MEDS: ALBUTEROL SO4 2.5/IPRATROPIUM 0.5 INH SOL 3 ML VIAL.NEB. NEB SCH ×4 (06:50→23:15)
[2017-02-27] MEDS ORDERED: INSULIN (NOVOLOG MIX 70/30) 100 UNITS/ML MDV SQ ONE (07:30)
[2017-02-27] MEDS ORDERED: INSULIN (NOVOLOG) ASPART 100 UNITS/ML 10ML VIAL ONE ×4 (07:31→22:34)
[2017-02-27 08:14] LABS: BASOPHIL 0.4 % (0-2.0); EOSINOPHIL 0.5 % (0-4.5); MCH 27.8 pg (25.7-33.7); MCHC 32.6 g/dl (32.0-35.9); MEAN CELL VOLUME 85.2 fl (80-96); MEAN PLT VOLUME 8.9 fl (7.5-11.1); NEUTROPHILS 80.7 % (42.8-82.8); PLATELET COUNT 254 K/MM3 (134-434); RDW 15.4 % (11.9-15.9)
[2017-02-27 08:28] LABS: PROTHROMBIN TIME (PATIENT) 48.9 SEC (9.98-11.88)
[2017-02-27 08:43] LABS: ALBUMIN 2.6 g/dl (3.4-5.0); ALK PHOS 249 U/L (45-117); ANION GAP 11 (8-16); BILIRUBIN,TOTAL 0.5 mg/dL (0.2-1.0); CALCIUM 8.5 mg/dL (8.5-10.1); CO2 23 mmol/L (21-32); CREATININE 4.7 mg/dL (0.7-1.3); GLUCOSE,RANDOM 178 mg/dL (74-106); SGOT/AST 21 U/L (15-37); SGPT/ALT 30 U/L (12-78); TOT PROT 6.6 g/dl (6.4-8.2)
--- NOTE | 2017-02-27 08:49 | PN ---
Progress Note (short form) - Note Progress Note: s: sob improving, no cp palps dizzy o: Vital Signs Period Temp Pulse Resp BP Sys/Olsen Pulse Ox Last 24 Hr 97.6 F-99.2 F 66-74 18-20 103-135/56-72 96-96 NAD, calm JVD flat, neck supple cta bl, nl effort RRR nl S1, s2 no m/r/g + bs soft obese nt nd ext without cyanosis, clubbing trace edema with venous stasis changes aaox3 no jaundice diaphoresis abd nt nd pos bs Current Medications Generic Name Dose Route Start Last Admin Trade Name Freq PRN Reason Stop Dose Admin Albuterol/Ipratropium 1 amp 02/26/17 00:00 02/27/17 06:50 Duoneb - NEB 1 amp QIDR MELISSA Administration Atorvastatin Calcium 20 mg 02/26/17 22:00 02/26/17 22:16 Lipitor - PO 20 mg HS MELISSA Administration Carvedilol 18.75 mg 02/26/17 10:00 02/26/17 22:16 Coreg - PO 18.75 mg BID MELISSA Administration Febuxostat 80 mg 02/26/17 10:00 02/26/17 14:20 Uloric - PO 80 mg DAILY MELISSA Administration Furosemide 80 mg 02/26/17 08:31 02/27/17 06:05 Lasix Injection - IVPUSH 80 mg BIDLASIX MELISSA Administration Gabapentin 100 mg 02/26/17 22:00 02/26/17 22:16 Neurontin - PO 100 mg HS MELISSA Administration Insulin Aspart 1 vial 02/26/17 07:00 02/27/17 06:06 Novolog Vial Sliding Scale - SQ 4 units ACHS MELISSA Administration Protocol Insulin Aspart 15 units 02/26/17 07:00 02/27/17 06:06 Novolog Mix 70/30 Vial SQ 15 units BIDAC MELISSA Administration Lidocaine 1 patch 02/26/17 10:00 02/26/17 09:41 Lidoderm Patch - TP 1 patch DAILY MELISSA Administration Miscellaneous 1 each 02/26/17 22:00 02/26/17 22:27 Lidoderm Patch Removal MC 1 each DAILY@2200 MELISSA Administration Pantoprazole Sodium 40 mg 02/26/17 10:15 02/26/17 11:20 Protonix - PO 40 mg DAILY MELISSA Administration Prednisone 20 mg 02/26/17 10:00 09/23/17 09:43 Deltasone - PO 20 mg DAILY MELISSA Administration CBC, BMP 02/27/17 07:00 02/27/17 07:00 Echo 10/19 ([facility]): nl LV size with mild-mod global HK (EF 45%); mild MR RHC 10/19: wedge 25, PA 50/20; CI 2.7-->nitroprusside: wedge 10, PA 25/15; CI 2.4 cath 02/2014: mLAD ESTER for ISR, patent stents in mRCA, pLAD, PLCx, OM1, residual ISR 50-60% OM2 stent mibi 02/2017: moderate size infarct of septal/inferoseptal/inferior wall from apex to mid with mild janak-infarct ischemia. global hk, lvef 35% ecg 02/25/17: sr, vpaced ct chest: b/l pleural effs l>r, mod pericardial eff, small ascites tele: sr, as-v paced a/p: 61 year old with h/o ischemic cardiomyopathy, CAD s/p multiple PCI's, most recent 02/2014, afib, SSS s/p pacemaker, diabetes, chronic kidney disease, asthma , jose on nivppv at home, morbid obesity who p/w sob, productive cough. Ischemic cardiomyopathy, acute on chronic syst chf - dry wt runs 332-338, now 350 here on admit, was taking torsemide 100 qd at home - will diurese with lasix 80 iv bid, feeling less sob today, monitor daily wts, chem7 - con't coreg - no NAKUL due to ckd - pt and family requesting transfer to [facility] for chf care, possible cath. case d/w with dr anglin and pt accepted for transfer later today. sob, productive cough: -chf treatment as above -will need to observe for signs of infection as well given recent hospital admit and productive cough parox Afib: - previous DCCV yrs ago, maintained on multaq for rhythm control - multaq stopped 2015 by EP at [facility] due to worsening creatinine (improved to 2.5 range from 3 at that time) - no AF noted since - cont BB as doing - On AC with coumadin per INR (holding now due to elevated inr) SSS s/p biotronik PPM - nl fcn on ecg/tele here. cont with routine office checks. CAD - no signs acs, ce's neg x2 - s/p multiple PCI's, most recent 02/2014 --mLAD ESTER PCI for ISR--stable, minimal residual, - not on anti-platelet due to h/o gib and pt on coumadin - not on NAKUL due to fluctuating creatinines - mibi here 02/2017 was low risk study, no significant ischemia. HTN - cont home meds HL - on atorvastatin, cont same CKD: - baseline creat since chf optimized and multaq d/c'd has been 2.6-3.2 (on longstanding torsemide 100 qd regimen at home) - cr above baseline on admit, possibly cardiorenal, observe trend with diuresis pericardial effusion: -ct chest reports moderate peric eff -pt has no signs of tamponade -likely related to ckd, total body fluid overload (also has pleural effs and ascites) -cont with diuresis as above -can check routine echo
[2017-02-27 08:50] LABS: INR 4.31 (0.82-1.09)
[2017-02-27] MEDS: CARVEDILOL 12.5 MG TABLET (FP) PO SCH ×2 (09:16→22:21)
[2017-02-27] MEDS: PANTOPRAZOLE 40 MG TABLET (FP) PO SCH (09:17)
[2017-02-27] MEDS: predniSONE 20 MG TABLET (UD) PO SCH (09:17)
[2017-02-27] MEDS: LIDOCAINE 5% TOPICAL PATCH TP SCH (09:18)
[2017-02-27] MEDS ORDERED: PT OWN MED DRAWER 7, Y5N ONE (09:22)
[2017-02-27] MEDS: FEBUXOSTAT 80 MG TAB PO SCH (09:23)
[2017-02-27 11:22] VITALS: BMI 55.1
--- NOTE | 2017-02-27 11:22 | CON.NEP ---
Consult Consult Specialty:: nephrology Reason for Consultation:: ckd/naren - History of Present Illness Chief Complaint: sob History of Present Illness: 61 yr old male, significant pmhx of Afib s/p stents and pacemaker placement, HTN , IDDM, COPD, anemia, and CKD, recently admitted to observation on 02/15/17 for chest pain, who presents today complaining of cough and weakness since being discharged from the hospital. He states that his chest feels congested and coughs every time he takes a deep breath. Denies fever, chills, nausea, vomiting. Also has OSMAR and has Non invasive positive pressure ventilation He says he worsened since he had a stress test on his previous admission. His voice even changed at that time. It may have been too cold. Says his bp at home was low as well he was previously evaluated for transplantation but was deemed not a good candidate yet since his egfr was above 20 - Past Medical History Cardio/Vascular: Yes: AFIB, CAD, HTN, Hyperlipdemia Pulmonary: Yes: COPD Renal/: Yes: Renal Inusuff, BPH, Other (Hyperuricemia) Musculoskeletal: Yes: Chronic low back pain, Osteoarthritis Rheumatology: Yes: Gout Endocrine: Yes: Diabetes Mellitus, Other (goiter) - Past Surgical History Past Surgical History: Yes: Permanent Pacemaker, Stent - Alcohol/Substance Use Hx Alcohol Use: No History of Substance Use: reports: None - Smoking History Smoking history: Former smoker Have you smoked in the past 12 months: No Aproximately how many cigarettes per day: 0 If you are a former smoker, when did you quit?: 2005 Home Medications - Allergies Allergies/Adverse Reactions: Allergies Allergy/AdvReac Type Severity Reaction Status Date / Time levofloxacin [From Levaquin] Allergy Intermediate EYE Verified 02/25/17 16:52 IRRITATION - Home Medications Home Medications: Ambulatory Orders Febuxostat [Uloric -] 80 mg PO DAILY #0 tab 03/10/12 Lidocaine 5% Patch [Lidoderm -] 1 patch TP DAILY #0 patch 03/10/12 Acetaminophen [Tylenol .Extra-Strength -] 1,000 mg PO Q6H PRN 11/26/13 Ergocalciferol (Vitamin D2) [Vitamin D] 50,000 unit PO WEEKLY 11/26/13 Esomeprazole Mag Trihydrate [Nexium] 40 mg PO DAILY 11/26/13 Insulin Regular, Human [Humulin R -] 2 units SQ ASDIR PRN 11/26/13 Gabapentin 100 mg PO HS 12/30/13 Insulin (Novolog 70/30) [Novolog Mix 70/30 Flexpen -] 15 units SQ BID 02/17/14 Atorvastatin Ca [Lipitor] 20 mg PO HS 06/17/15 Torsemide [Demadex -] 100 mg PO DAILY tablet 06/23/15 Iron Dextran Complex [Infed] 100 mg IJ ASDIR 10/04/15 Dulaglutide [Trulicity] 0.75 mg SQ WEEKLY 10/05/15 Carvedilol [Coreg -] 18.75 mg PO DAILY 09/24/16 Albuterol 2.5/Ipratropium 0.5 [Duoneb -] 1 amp NEB QIDR amp 09/27/16 Amox-Tr/K Cl [Augmentin 875-125mg Tablet -] 1 tab PO BID@0800,1730 #14 tablet Prednisone 10 mg PO DAILY #40 tablet 09/27/16 Warfarin Na [Coumadin -] 2.5 mg PO DAILY@1800 #30 tablet 09/27/16 Family Disease History - Family Disease History Family Disease History: Diabetes: Brother Review of Systems - Review of Systems Constitutional: reports: Weakness Eyes: reports: No Symptoms HENT: reports: No Symptoms Neck: reports: No Symptoms Cardiovascular: reports: Edema, Shortness of Breath Respiratory: reports: Cough Gastrointestinal: reports: No Symptoms Genitourinary: reports: No Symptoms Breasts: reports: No Symptoms Reported Musculoskeletal: reports: No Symptoms Integumentary: reports: No Symptoms Neurological: reports: No Symptoms Endocrine: reports: No Symptoms Hematology/Lymphatic: reports: No Symptoms Psychiatric: reports: No Symptoms Nephrology Consult - Height Height: 5 ft 7 in - Weight Weight: 352 lb 2 oz - BMI Body Mass Index (BMI): 55.1 - Lab Results CBC,BMP: CBC, BMP 02/27/17 07:00 02/27/17 07:00 Anion Gap: Anion Gap Anion Gap 11 (8-16) 02/27/17 07:00 - Imaging Cat Scan: Report Reviewed (ascites, pleural and pericardial effusion) - Physical Examination Vital Signs: Vital Signs Temperature 98.6 F 02/27/17 10:00 Pulse Rate 73 02/27/17 10:00 Respiratory Rate 20 02/27/17 10:00 Blood Pressure 110/70 02/27/17 10:00 O2 Sat by Pulse Oximetry (%) 96 02/26/17 21:00 Constitutional: Yes: No Distress, Obese Eyes: Yes: Conjunctiva Clear HENT: Yes: Atraumatic, Normocephalic Neck: Yes: Supple, Trachea Midline Cardiovascular: Yes: Regular Rate and Rhythm Respiratory: Yes: CTA Bilaterally Gastrointestinal: Yes: Normal Bowel Sounds, Soft Renal/: Yes: WNL Musculoskeletal: Yes: Back Pain Extremities: Yes: WNL Edema: Yes Edema: LLE: 1+, RLE: 1+ Wound/Incision: Yes: Clean/Dry Neurological: Yes: Alert, Oriented Psychiatric: Yes: Alert, Oriented Assessment/Plan IMPRESSION ckd stage 4 with acute deterioration possibly from a drop in BP (cardiorenal). He tells me his BP was 90/60 and he actually took salt to increase it. He does have a very high ESR and has hematuria and proteinuria which could suggest an acute GN. He is very fluid overloaded as evidenced by his increased weight of 12 lbs and the ascites and effusions on CT scan PLAN would continue diuresis but would be cautious about dropping his blood pressure. If necessary would reduce his coreg to allow his BP to remain above 100 systolic. If prednisone is not necessary would dc since it can cause fluid retention he leonarda need dialysis if his renal function continues to worsen while being diuresed obtain urine sodium... only useful if low if pt remains at [facility] would do a vasculitis work up MV
--- NOTE | 2017-02-27 11:54 | DS ---
Physical Examination Vital Signs: Vital Signs Temperature 98.6 F 02/27/17 10:00 Pulse Rate 73 02/27/17 10:00 Respiratory Rate 20 02/27/17 10:00 Blood Pressure 110/70 02/27/17 10:00 O2 Sat by Pulse Oximetry (%) 96 02/26/17 21:00 Findings/Remarks: FEELS BETTER NO WT LOSS Cardiovascular: Yes: Murmur, S1, S2 Respiratory: Yes: On Nasal O2, Rales Gastrointestinal: Yes: Normal Bowel Sounds, Soft Labs: CBC, BMP 02/27/17 07:00 02/27/17 07:00 Discharge Summary Reason For Visit: CHF Current Active Problems CHF exacerbation (Acute) Cough (Acute) HTN (hypertension) (Acute) Pericardial effusion (Acute) Systolic CHF, acute on chronic (Acute) Type 2 diabetes mellitus with diabetic neuropathic arthropathy (Acute) Hospital Course: 61 year old with h/o ischemic cardiomyopathy, CAD s/p multiple PCI's, most recent 02/2014, afib, SSS s/p pacemaker, diabetes, chronic kidney disease, asthma , jose on bipap at home, morbid obesity who p/w sob, productive cough. Was admitted here last week for atypical cp, had low risk mibi and discharged home. He says that since discharge he has been feeling sob with productive cough ( yellow sputum). No cp. +pnd, +orthopnea. Le edema chronic, stable. Wt has been elevated at home as well. This am pt c/o fatigue and sob - Past Medical History Cardiovascular: Yes: AFIB, CAD, HTN, Hyperlipdemia Pulmonary: Yes: COPD Renal/: Yes: Renal Inusuff, BPH, Other (Hyperuricemia) Heme/Onc: Yes: Anemia Musculoskeletal: Yes: Chronic low back pain, Osteoarthritis Rheumatology: Yes: Gout Endocrine: Yes: Diabetes Mellitus, Other (goiter) - Past Surgical History Past Surgical History: Yes: Permanent Pacemaker, Stent Problems (1) Pericardial effusion Assessment/Plan: NEW NOT ON RECENT CT D/W CARDIO--NO EVIDENCE OF TAMPONADE FOLLOW CLOSELY ECHO T/S Code(s): I31.3 - PERICARDIAL EFFUSION (NONINFLAMMATORY) (2) HTN (hypertension) Assessment/Plan: SAME MEDS MONITOR Code(s): I10 - ESSENTIAL (PRIMARY) HYPERTENSION (3) Systolic CHF, acute on chronic Assessment/Plan: IV LASIX FOLLOW LABS FOR TRANSFER TO [facility] Code(s): I50.23 - ACUTE ON CHRONIC SYSTOLIC (CONGESTIVE) HEART FAILURE (4) Acute on chronic renal failure Assessment/Plan: MONITOR RENAL FUNCTION ON DIURETICS Code(s): N17.9 - ACUTE KIDNEY FAILURE, UNSPECIFIED N18.9 - CHRONIC KIDNEY DISEASE, UNSPECIFIED (5) Atrial fibrillation Assessment/Plan: HOLD COUMADIN MONITOR INR Code(s): I48.91 - UNSPECIFIED ATRIAL FIBRILLATION (6) Insulin dependent diabetes mellitus Assessment/Plan: BGM ENDO CONSULT Code(s): E11.9 - TYPE 2 DIABETES MELLITUS WITHOUT COMPLICATIONS Z79.4 - PENITENTIARY (CURRENT) USE OF INSULIN Condition: Unchanged/Unknown - Instructions Referrals: Dawson Alberts MD [Primary Care Provider] - - Home Medications Comprehensive Discharge Medication List: Ambulatory Orders Febuxostat [Uloric -] 80 mg PO DAILY #0 tab 03/10/12 Lidocaine 5% Patch [Lidoderm -] 1 patch TP DAILY #0 patch 03/10/12 Acetaminophen [Tylenol .Extra-Strength -] 1,000 mg PO Q6H PRN 11/26/13 Ergocalciferol (Vitamin D2) [Vitamin D] 50,000 unit PO WEEKLY 11/26/13 Esomeprazole Mag Trihydrate [Nexium] 40 mg PO DAILY 11/26/13 Insulin Regular, Human [Humulin R -] 2 units SQ ASDIR PRN 11/26/13 Gabapentin 100 mg PO HS 12/30/13 Insulin (Novolog 70/30) [Novolog Mix 70/30 Flexpen -] 15 units SQ BID 02/17/14 Atorvastatin Ca [Lipitor] 20 mg PO HS 06/17/15 Torsemide [Demadex -] 100 mg PO DAILY tablet 06/23/15 Iron Dextran Complex [Infed] 100 mg IJ ASDIR 10/04/15 Dulaglutide [Trulicity] 0.75 mg SQ WEEKLY 10/05/15 Carvedilol [Coreg -] 18.75 mg PO DAILY 09/24/16 Albuterol 2.5/Ipratropium 0.5 [Duoneb -] 1 amp NEB QIDR amp 09/27/16 Amox-Tr/K Cl [Augmentin 875-125mg Tablet -] 1 tab PO BID@0800,1730 #14 tablet Prednisone 10 mg PO DAILY #40 tablet 09/27/16 Warfarin Na [Coumadin -] 2.5 mg PO DAILY@1800 #30 tablet 09/27/16
[2017-02-27] MEDS: ATORVASTATIN CA 20 MG TABLET (FP) PO SCH (22:20)
[2017-02-27] MEDS: GABAPENTIN 100 MG CAPSULE (FP) PO SCH (22:20)
[2017-02-27] MEDS: LIDOCAINE PATCH REMOVAL MC SCH (22:26)
[2017-02-28] MEDS: FUROSEMIDE 40 MG/4 ML INJECTABLE VIAL IVPUSH SCH (05:19)
[2017-02-28 05:56] VITALS: BP 113/66; PULSE 66; TEMP 97.9
[2017-02-28] MEDS ORDERED: INSULIN (NOVOLOG) ASPART 100 UNITS/ML 10ML VIAL ONE (06:04)
[2017-02-28] MEDS: INSULIN (NOVOLOG MIX 70/30) 100 UNITS/ML MDV SQ SCH (06:06)
[2017-02-28] MEDS: INSULIN SLIDING SCALE (NOVOLOG) 1 VIAL SQ SCH (06:06)
[2017-02-28] MEDS: ALBUTEROL SO4 2.5/IPRATROPIUM 0.5 INH SOL 3 ML VIAL.NEB. NEB SCH (06:30)
[2017-02-28 07:53] LABS: PROTHROMBIN TIME (PATIENT) 45.7 SEC (9.98-11.88)
[2017-02-28 08:09] LABS: INR 4.04 (0.82-1.09)
[2017-02-28] MEDS ORDERED: PT OWN MED DRAWER 7, Y5N ONE (08:58)
[2017-02-28] MEDS: PANTOPRAZOLE 40 MG TABLET (FP) PO SCH (09:37)
[2017-02-28] MEDS: CARVEDILOL 12.5 MG TABLET (FP) PO SCH (09:37)
[2017-02-28] MEDS: predniSONE 20 MG TABLET (UD) PO SCH (09:37)
[2017-02-28] MEDS: LIDOCAINE 5% TOPICAL PATCH TP SCH ×2 (09:38→09:40)
[2017-02-28] MEDS: FEBUXOSTAT 80 MG TAB PO SCH (09:38)
[2017-02-28] MEDS ORDERED: METOLAZONE 5 MG TABLET PO ONE ×2 (10:33→10:36)
[2017-02-28] MEDS ORDERED: FUROSEMIDE 40 MG/4 ML INJECTABLE VIAL IVPUSH SCH (10:33)
--- NOTE | 2017-02-28 10:33 | PN ---
Progress Note, Physician - Current Medication List Current Medications: Active Medications Albuterol/Ipratropium (Duoneb -) 1 amp NEB QIDR [facility] Last Admin: 02/28/17 06:30 Dose: 1 amp Atorvastatin Calcium (Lipitor -) 20 mg PO HS [facility] Last Admin: 02/27/17 22:20 Dose: 20 mg Carvedilol (Coreg -) 18.75 mg PO BID [facility] Last Admin: 02/28/17 09:37 Dose: 18.75 mg Febuxostat (Uloric -) 80 mg PO DAILY [facility] Last Admin: 02/28/17 09:38 Dose: 80 mg Furosemide (Lasix Injection -) 80 mg IVPUSH BIDLASIX [facility] Last Admin: 02/28/17 05:19 Dose: 80 mg Gabapentin (Neurontin -) 100 mg PO HS [facility] Last Admin: 02/27/17 22:20 Dose: 100 mg Insulin Aspart (Novolog Vial Sliding Scale -) 1 vial SQ ACHS [facility] PRN Reason: Protocol Last Admin: 02/28/17 06:06 Dose: 6 units Insulin Aspart (Novolog Mix 70/30 Vial) 15 units SQ BIDAC [facility] Last Admin: 02/28/17 06:06 Dose: 15 units Lidocaine (Lidoderm Patch -) 1 patch TP DAILY [facility] Last Admin: 02/28/17 09:40 Dose: Not Given Miscellaneous (Lidoderm Patch Removal) 1 each MC DAILY@2200 [facility] Last Admin: 02/27/17 22:26 Dose: 1 each Pantoprazole Sodium (Protonix -) 40 mg PO DAILY [facility] Last Admin: 02/28/17 09:37 Dose: 40 mg Prednisone (Deltasone -) 20 mg PO DAILY [facility] Last Admin: 02/28/17 09:37 Dose: 20 mg - Objective Vital Signs: Vital Signs Temperature 97.9 F 02/28/17 05:56 Pulse Rate 66 02/28/17 05:56 Respiratory Rate 20 02/28/17 05:56 Blood Pressure 113/66 02/28/17 05:56 O2 Sat by Pulse Oximetry (%) 94 L 02/27/17 20:22 Labs: CBC, BMP 02/27/17 07:00 02/27/17 07:00 INR, PTT INR 4.04 (0.82-1.09) H* 02/28/17 06:30 Assessment/Plan Echo 12/20 (office): 1. The left ventricle is mildly dilated. 2. There is mild concentric left ventricular hypertrophy. 3. Overall left ventricular systolic function is normal with, an EF between 55 - 60%. 4. Hypokinesis of apical inferoseptum. Inferior wall not entirely well seen. 5. Elevated LA pressure (E/e' > 15, blunted systolic flow in pulmonary vein). 6. The right ventricle is normal to mildly dilated in size. Systolic function is normal. 7. Left atrium is severely dilated by volume. 8. The right atrium is moderately enlarged. 9. Moderate mitral regurgitation is present. 10. Moderate tricuspid regurgitation present. 11. There is at least moderate pulmonary hypertension. 12. The right ventricular systolic pressure is at least 57 mmHg (assuming RA pressure of 3 mmHg). 13. Normal inferior vena cava with normal inspiratory collapse consistent with estimated right atrial pressure of 3 mmHg. Echo 10/19 ([place]): nl LV size with mild-mod global HK (EF 45%); mild MR RHC 10/19: wedge 25, PA 50/20; CI 2.7-->nitroprusside: wedge 10, PA 25/15; CI 2.4 cath 02/2014: mLAD ESTER for ISR, patent stents in mRCA, pLAD, PLCx, OM1, residual ISR 50-60% OM2 stent mibi 02/2017: moderate size infarct of septal/inferoseptal/inferior wall from apex to mid with mild janak-infarct ischemia. global hk, lvef 35% ecg 02/25/17: sr, vpaced ct chest: b/l pleural effs l>r, mod pericardial eff, small ascites a/p: 61 year old with h/o ischemic cardiomyopathy, CAD s/p multiple PCI's, most recent 02/2014, afib, SSS s/p pacemaker, diabetes, chronic kidney disease, asthma , jose on nivppv at home, morbid obesity who p/w sob, productive cough. Ischemic cardiomyopathy, acute on chronic mixed syst/diast chf: - dry wt runs 332-337, 340 on d/c 02/17--now 350 here on admit, was taking torsemide 100 qd at home - receiving lasix 80 iv bid--clearly ineffectual diuresis here, with wt rising ( up to 356 today), with bilat pleural effusions, pericardial effusion, and small amt of ascites. - bun and creatinine both progressively rising, c/w cardiorenal syndrome. - do not suspect low output, and doubt will require inotropes as he did last time, as 12/20 echo showed LV function had normalized--will repeat echo. - increase diuresis to lasix 100 iv bid with metolazone today. strict I/O monitoring. - if renal fxn worsens despite adequate diuresis, will need RHC and may ultimately require dialysis (if has now developed ATN from recurrent CHF). - con't coreg home dose (18.75 mg bid). - no NAKUL due to ckd - pt and family requesting transfer to [facility] for chf care, possible cath. case d/w with dr anglin and pt accepted for transfer today when bed available. d /w'd dr anglin regarding ? RHC depending on response to above mgmt changes, and would also suggest Cardiomems implant for PAP monitoring unless pt goes home on dialysis. parox Afib: - previous DCCV yrs ago, maintained on multaq for rhythm control - multaq stopped 2015 by EP at [place] due to worsening creatinine (improved to 2.5 range from 3 at that time) - no AF noted since - cont BB as doing - On AC with coumadin per INR (holding now due to elevated inr) SSS s/p biotronik PPM - nl fcn on ecg/tele here. cont with routine office checks. CAD - no signs acs, ce's neg x2 - s/p multiple PCI's, most recent 02/2014 --mLAD ESTER PCI for ISR--stable, minimal residual, - not on anti-platelet due to h/o gib and pt on coumadin - not on NAKUL due to fluctuating creatinines - mibi here 02/2017 was low risk study, no significant ischemia (as per above report) HTN - cont home meds anemia: - baseline hgb runs around 9.5-10s - slightly below baseline here--observe trend CKD: - baseline creat since chf optimized and multaq d/c'd has been 2.6-3.2 (on longstanding torsemide 100 qd regimen at home) - cr above baseline on admit, possibly cardiorenal, observe trend with diuresis pericardial effusion: -ct chest reports moderate peric eff -pt has no signs of tamponade -likely related to total body fluid overload (also has pleural effs and ascites) -cont with diuresis as above -for rpt echo
--- NOTE | 2017-02-28 10:36 | DS ---
Physical Examination Vital Signs: Vital Signs Temperature 97.9 F 02/28/17 05:56 Pulse Rate 66 02/28/17 05:56 Respiratory Rate 20 02/28/17 05:56 Blood Pressure 113/66 02/28/17 05:56 O2 Sat by Pulse Oximetry (%) 94 L 02/27/17 20:22 awake alert in stretcher to leave for [facility] Constitutional: Yes: Calm, Obese Cardiovascular: Yes: S1, S2 Respiratory: Yes: Diminished Gastrointestinal: Yes: Abdomen, Obese, Distention Extremities: Yes: Other (chronic skin changes) Edema: LLE: 2+, RLE: 2+ Labs: CBC, BMP 02/27/17 07:00 02/27/17 07:00 Discharge Summary Reason For Visit: CHF Current Active Problems CHF exacerbation (Acute) Cough (Acute) HTN (hypertension) (Acute) Pericardial effusion (Acute) Systolic CHF, acute on chronic (Acute) Type 2 diabetes mellitus with diabetic neuropathic arthropathy (Acute) Hospital Course: a/p: 61 year old with h/o ischemic cardiomyopathy, CAD s/p multiple PCI's, most recent 02/2014, paroxysmal afib, SSS s/p pacemaker, diabetes, chronic kidney disease, asthma, jose on nivppv at home, morbid obesity who p/w sob, productive cough.found ascites and pleural effusion on CT scan,and increased patients weight. 1.acute on chronic systolic chf: iv lasix 80mg bid then increased to 100mg iv bid -transfer to [facility] to energy systems laboratory director\\ 2.paroxysmal afib: on BB. coumadin on hold given supratherapeutic INR in 4 range 3 "SSS s/p biotronik PPM 4.CAD /p mulitple PCI not on ACEI bc inc creatinine not on antiplaletet bc of h/ o gib 5: htn same meds 6>HLD on statin 7> DM with neuropathy and CKD on insulin and neurontin 8> CKD monitor renal function while on iv diuretics Echo 10/19 ([place]): nl LV size with mild-mod global HK (EF 45%); mild MR RHC 10/19: wedge 25, PA 50/20; CI 2.7-->nitroprusside: wedge 10, PA 25/15; CI 2.4 cath 02/2014: mLAD ESTER for ISR, patent stents in mRCA, pLAD, PLCx, OM1, residual ISR 50-60% OM2 stent mibi 02/2017: moderate size infarct of septal/inferoseptal/inferior wall from apex to mid with mild janak-infarct ischemia. global hk, lvef 35% ecg 02/25/17: sr, vpaced ct chest: b/l pleural effs l>r, mod pericardial eff, small ascites tele: sr, as-v paced plan patient transferred to the [facility] laboratory director Condition: Guarded - Instructions Referrals: Dawson Alberts MD [Primary Care Provider] - Disposition: TRANSFER ACUTE CARE/OTHER HOSP - Home Medications Comprehensive Discharge Medication List: Ambulatory Orders Febuxostat [Uloric -] 80 mg PO DAILY #0 tab 03/10/12 Lidocaine 5% Patch [Lidoderm -] 1 patch TP DAILY #0 patch 03/10/12 Acetaminophen [Tylenol .Extra-Strength -] 1,000 mg PO Q6H PRN 11/26/13 Ergocalciferol (Vitamin D2) [Vitamin D] 50,000 unit PO WEEKLY 11/26/13 Esomeprazole Mag Trihydrate [Nexium] 40 mg PO DAILY 11/26/13 Insulin Regular, Human [Humulin R -] 2 units SQ ASDIR PRN 11/26/13 Gabapentin 100 mg PO HS 12/30/13 Insulin (Novolog 70/30) [Novolog Mix 70/30 Flexpen -] 15 units SQ BID 02/17/14 Atorvastatin Ca [Lipitor] 20 mg PO HS 06/17/15 Torsemide [Demadex -] 100 mg PO DAILY tablet 06/23/15 Iron Dextran Complex [Infed] 100 mg IJ ASDIR 10/04/15 Dulaglutide [Trulicity] 0.75 mg SQ WEEKLY 10/05/15 Carvedilol [Coreg -] 18.75 mg PO DAILY 09/24/16 Albuterol 2.5/Ipratropium 0.5 [Duoneb -] 1 amp NEB QIDR amp 09/27/16 Amox-Tr/K Cl [Augmentin 875-125mg Tablet -] 1 tab PO BID@0800,1730 #14 tablet Prednisone 10 mg PO DAILY #40 tablet 09/27/16 Warfarin Na [Coumadin -] 2.5 mg PO DAILY@1800 #30 tablet 09/27/16
== END 2017-02-28 10:36 | disposition short-term general hospital (02) | DRG 291 ==
LOC: JER 16:35 → JERBED 23:03 → J4S 02-26 00:11
PROVIDERS: ADMIT Family Medicine; ATTEND Family Medicine
DX: I13.0 Hypertensive heart and chronic kidney disease with heart failure and stage 1 through stage 4 chronic kidney disease, or unspecified chronic kidney disease (principal); I50.23 Acute on chronic systolic (congestive) heart failure; N17.9 Acute kidney failure, unspecified; N18.4 Chronic kidney disease, stage 4 (severe); I31.3 Pericardial effusion (noninflammatory); Z68.43 Body mass index [BMI] 50.0-59.9, adult; E11.22 Type 2 diabetes mellitus with diabetic chronic kidney disease; Z79.4 Long term (current) use of insulin; I48.0 Paroxysmal atrial fibrillation; E78.5 Hyperlipidemia, unspecified; I25.10 Atherosclerotic heart disease of native coronary artery without angina pectoris; Z98.61 Coronary angioplasty status; E11.610 Type 2 diabetes mellitus with diabetic neuropathic arthropathy; Z95.0 Presence of cardiac pacemaker; Z87.891 Personal history of nicotine dependence; E87.70 Fluid overload, unspecified; I25.5 Ischemic cardiomyopathy; E66.01 Morbid (severe) obesity due to excess calories; G47.33 Obstructive sleep apnea (adult) (pediatric); R07.9 Chest pain, unspecified
CPT/HCPCS: 36415; 71010-TC; 71250-TC; 80053; 81003; 81015; 83880; 84484; 85025; 85610; 85651; 85730; 86140; 93005; 93010; 94640; 99284-25